=== PATIENT | male | born 1950 | race African-American/Black ===

== ENCOUNTER 2017-03-12 14:07 | Inpatient (IN) | payer MEDICARE, SELFPAY ==
[2017-03-12] VITALS (9 sets, daily range): BP systolic 85–102; BP diastolic 46–72; PULSE 51–66; RESP 14–97; TEMP 35.3; O2SAT 91–97; BMI 23.8; BMI 23.9
--- NOTE | 2017-03-12 14:31 | RAD_ITS ---
STUDY: X-RAY CHEST REASON FOR EXAM: Male, 66 years old. Possible aspiration. TECHNIQUE: Single AP portable view of the chest. COMPARISON: Comparison is made with prior study dated October 23, 2012. FINDINGS: Since prior study, there has been progression of the right perihilar infiltration. New left lower lobe infiltrate. Follow-up is recommended. There is blunting of the left costophrenic angle. Normal size heart. Normal mediastinum and nohemi. Normal visualized pulmonary arteries. There is atherosclerotic calcification of the aortic arch with tortuosity. Normal visualized thoracic spine. There is degenerative osteoarthritis of the bilateral shoulders. There is no demonstrated abnormality of the visualized soft tissue structures of the upper abdomen. RAD/Chest 1 View (Portable) IMPRESSION: Progressive right upper lobe and right perihilar infiltration and left lower lobe infiltrate. Follow-up is recommended. Electronically Signed: Braydon Serra MD at 15:17 EST Tel [phone], Service support ,
--- NOTE | 2017-03-12 14:42 | RAD_ITS ---
STUDY: X-RAY - RIGHT ELBOW REASON FOR EXAM: Male, 66 years old. Swelling following a fall. TECHNIQUE: 4 view(s) of the elbow. COMPARISON: None. FINDINGS: Irregularity seen along the olecranon of the proximal ulna. Soft tissue calcifications are seen adjacent to this region. Overlying soft tissue swelling. This may represent an area of her chronic osteomyelitis. Clinical correlation is recommended. Normal radiocapitellar and ulnotrochlear articulations. Soft tissue swelling. RAD/Elbow min 3 Views IMPRESSION: Irregularity of the olecranon of the proximal ulna with soft tissue calcifications and irregularity of the cortex. This may represent a chronic osteomyelitis. Overlying soft tissue swelling. Clinical correlation is recommended. There is no evidence of joint effusion. No fracture is seen. Electronically Signed: Braydon Serra MD at 15:16 EST Tel [phone], Service support ,
--- NOTE | 2017-03-12 16:13 | CT_ITS ---
STUDY: CT BRAIN WITHOUT CONTRAST REASON FOR EXAM: Male, 66 years old. Fall RADIATION DOSAGE (If Supplied By Facility): CTDIvol = ( 44.99 ) mGy, DLP = ( 829.85 ) mGycm TECHNIQUE: Transaxial CT imaging of the brain was performed without administration of intravenous contrast material. Individualized dose optimization techniques were used for this CT. COMPARISON: February 17, 2014 FINDINGS: There is a comminuted nasal bone fracture associated with a comminuted anterior and mid nasal septal fracture. There is associated nasal soft tissue swelling associated with bilateral periorbital hematomas. There is a stable deformity of the right medial orbital wall. Opacification of the nasal cavities is present. There are air-fluid levels within the maxillary and sphenoid sinuses. The globes appear intact. There is fluid noted with in the nasopharynx. There is mild cerebral atrophy with widening of the extra-axial spaces and ventricular dilatation. Normal white matter tracts of the cerebral hemispheres. Normal basal ganglia and thalami. Normal brainstem. Normal cerebellum. There is no intracranial hemorrhage. There are no findings of an acute ischemic infarction. CT/Brain/Head without Contrast IMPRESSION: Comminuted nasal bone and nasal septal fractures associated with opacification of the nasal cavities and nasal soft tissue swelling. Small air-fluid levels within the maxillary and sphenoid sinuses may be secondary to history of sinusitis however this may be related to recent trauma, consider dedicated maxillofacial CT for further evaluation. Bilateral periorbital hematomas. Electronically Signed: Kayla Rodriguez MD at 17:22 EST Tel , Service support ,
[2017-03-12 16:27] LABS: Absolute Lymphocyte Count 1.09 X10^3/ul (0.83-4.51); Absolute Neutrophil Count 3.9 X10^3/uL (2.0-7.7); Differential Indicated SCAN CRITERIA MET; Eosinophil# 0.03 X10^3/uL; Eosinophils% 0.5 % (0-5); Hematocrit 30.8 % (40-54); Hemoglobin 9.9 g/dl (13.0-16.5); Lymphocyte # 1.09 X10^3/ul (4.0); Lymphocyte % 19.3 % (19-41); Mean Corp Hgb Conc 32.1 g/gl (32-36); Mean Corpuscular Hgb 30.6 pg (27.0-32.0); Mean Corpuscular Volume 95.1 fL (80-94); Monocyte# 0.58 X10^3/uL; Monocyte% 10.2 % (0-10); Neutrophil # 3.94 X10^3/uL (2.7-7.7); Neutrophil % 69.6 % (47-70); POSITIVE COUNT NO; POSITIVE DIFFERENTIAL NO; POSITIVE MORPHOLOGY YES; Platelet Count 85 K/mm3 (150-450); RBC Distribution Width CV 15.8 % (11.6-14.6); RBC Distribution Width SD 54.9 fl (35.1-43.9); Red Blood Count 3.24 M/mm3 (4.6-6.2); White Blood Count 5.7 K/mm3 (4.4-11.0)
[2017-03-12 16:37] LABS: BUN 44 mg/dL (7-18); Creatinine, Serum 1.88 mg/dL (0.70-1.30); EST Glomerular Filtration Rate 38 mL/min (>60); Estimated Creatinine Clearance 36.89 ml/min; Glucose 91 mg/dL (74-106)
[2017-03-12 16:38] LABS: Anion Gap 7 (5-15); BUN/Creat Ratio 23.4 RATIO (10-20); Calcium,Total 8.8 mg/dL (8.5-10.1); Chloride 106 mmol/L (98-107); Est Glom Filt Rate - Afr Amer 46 mL/min (>60); Potassium 5.2 mmol/L (3.5-5.1); Sodium Level 141 mmol/L (136-145)
[2017-03-12 16:50] LABS: Anisocytosis RARE; Hypochromasia RARE; Macrocytosis RARE; Platelet Estimate MOD DEC (ADEQ); Platelet Morphology LARGE; Target Cells 1+
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
[2017-03-12] MEDS: 0.9% Normal Saline 1,000 ML 999 ML IV (17:53)
--- NOTE | 2017-03-12 19:04 | CT_ITS ---
STUDY: CT FACIAL BONES WITHOUT CONTRAST REASON FOR EXAM: Male, 66 years old. Nasal fracture RADIATION DOSAGE (If Supplied By Facility): CTDIvol = ( 29.38 ) mGy, DLP = ( 642.95 ) mGycm TECHNIQUE: The patient was scanned in a multi detector CT scanner. Sagittal and coronal images were reconstructed. Individualized dose optimization techniques were used for this CT. COMPARISON: None. FINDINGS: Diffuse soft tissue swelling overlying the nose. Normal orbital joyner and orbital contents. Anterior nasal spine appears intact. Impacted nasal bone fracture. Fracture of the nasal septum. Degenerative findings of the cervical spine. There is mild maxillary sinus disease. CT/Sinus/Facial Bone IMPRESSION: Diffuse soft tissue swelling overlying the nose. Impacted nasal bone fracture. Fracture of the nasal septum. Electronically Signed: Blaze Rodriguez MD at 20:33 EST , Service support ,
--- NOTE | 2017-03-12 19:41 | ED.RN ---
PLACED ON VENTURI MASK PER DR MENA AND VANESSA REQUEST
--- NOTE | 2017-03-12 20:18 | ED.RN ---
REPORT CALLED TO [facility]
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
[2017-03-13] VITALS (14 sets, daily range): BP systolic 96–113; BP diastolic 50–64; PULSE 74–99; RESP 16–20; TEMP 35.7–37.3; O2SAT 95–98
[2017-03-13] MEDS: 0.9% Normal Saline 1,000 ML 125 ML IV ×3 (00:47→16:50)
[2017-03-13 05:26] LABS: Color, Urine Yellow (Yellow); Glucose, Dipstick Normal (Normal); Ketone-Dipstick 5 mg/dl (Negative); Leukocyte Esterase-Dipstick 25 /ul (Negative); Nitrite-Dipstick Negative (Negative); Occult Blood-Urine Negative /ul (Negative); Protein-Dipstick Negative (Negative); Urine Bilirubin Dipstick Negative (Negative); Urine Clarity Clear (Clear); Urine Urobilinogen Normal (Normal)
[2017-03-13] MEDS: Piperacil/Tazobactam 3.375 GM/50 ML ML IV ×3 (05:44→21:05)
[2017-03-13 06:17] LABS: Absolute Lymphocyte Count 0.67 X10^3/ul (0.83-4.51); Basophil# 0.01 X10^3/uL; Basophil% 0.1 % (0-1); Eosinophil# 0.03 X10^3/uL; Eosinophils% 0.4 % (0-5); Hematocrit 27.6 % (40-54); Lymphocyte # 0.67 X10^3/ul (4.0); Lymphocyte % 7.9 % (19-41); Mean Corp Hgb Conc 32.6 g/gl (32-36); Mean Corpuscular Hgb 30.7 pg (27.0-32.0); Mean Corpuscular Volume 94.2 fL (80-94); Monocyte# 0.75 X10^3/uL; Monocyte% 8.9 % (0-10); Neutrophil # 6.98 X10^3/uL (2.7-7.7); Neutrophil % 82.5 % (47-70); Platelet Count 79 K/mm3 (150-450); RBC Distribution Width CV 15.9 % (11.6-14.6); RBC Distribution Width SD 54.8 fl (35.1-43.9); Red Blood Count 2.93 M/mm3 (4.6-6.2); White Blood Count 8.5 K/mm3 (4.4-11.0)
[2017-03-13 06:18] LABS: Differential Indicated SCAN CRITERIA MET; POSITIVE COUNT NO; POSITIVE DIFFERENTIAL NO; POSITIVE MORPHOLOGY YES
[2017-03-13 06:47] LABS: Platelet Estimate MOD DEC (ADEQ)
--- NOTE | 2017-03-13 10:04 | CASEMGMT ---
SW referral received d/t pt's admission from [facility]. Reviewed record and attempted to meet with pt, who was asleep with four visitors at the bedside. Visitors identified themselves as staff from [facility] and stated their understanding that pt would be returning there upon discharge from [facility]. Call placed to pt's guardian, Janessa Ortiz, at [phone] as listed on chart. Message left; awaiting return call.
[2017-03-13 11:44] LABS: Anion Gap 6 (5-15); BUN 44 mg/dL (7-18); BUN/Creat Ratio 27.7 RATIO (10-20); Calcium,Total 8.2 mg/dL (8.5-10.1); Chloride 110 mmol/L (98-107); Creatinine, Serum 1.59 mg/dL (0.70-1.30); EST Glomerular Filtration Rate 46 mL/min (>60); Est Glom Filt Rate - Afr Amer 56 mL/min (>60); Estimated Creatinine Clearance 43.62 ml/min; Glucose 75 mg/dL (74-106); Potassium 4.7 mmol/L (3.5-5.1); Sodium Level 143 mmol/L (136-145)
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
[2017-03-13] MEDS: Ipratropium/Albuterol Sulfate 3 ML AMPUL.NEB INHALATION (18:39)
[2017-03-14] VITALS (15 sets, daily range): BP systolic 104–157; BP diastolic 60–88; PULSE 58–99; RESP 18–20; TEMP 36.9–37.4; O2SAT 94–96
[2017-03-14] MEDS: 0.9% Normal Saline 1,000 ML 125 ML IV ×3 (00:54→18:08)
[2017-03-14 05:38] LABS: Anion Gap 7 (5-15); BUN 35 mg/dL (7-18); Calcium,Total 7.8 mg/dL (8.5-10.1); Chloride 112 mmol/L (98-107); Creatinine, Serum 1.59 mg/dL (0.70-1.30); EST Glomerular Filtration Rate 46 mL/min (>60); Est Glom Filt Rate - Afr Amer 56 mL/min (>60); Estimated Creatinine Clearance 43.62 ml/min; Glucose 74 mg/dL (74-106); Magnesium 1.8 mg/dL (1.6-2.6); Sodium Level 144 mmol/L (136-145)
[2017-03-14] MEDS: Piperacil/Tazobactam 3.375 GM/50 ML ML IV ×3 (05:53→22:18)
--- NOTE | 2017-03-14 09:57 | PN_ITS ---
Patient Problems: Active and Suspected Problems Closed head injury (Acute) Subjective: Patient seen nasal packing discontinued much more awake he apparently did fail his speech and swallow eval again this morning Objective: GENERAL: In no apparent distress HEENT: Nasal Packing removed NECK; supple, normal thyroid, CHEST: Diminished to auscultation bilaterally, HEART: Regular S1 S2, no audible murmurs ABDOMEN: soft, non-tender, normoactive bowel sounds, RECTAL: deferred EXTREMITIES: No edema, no clubbing, no cyanosis. 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 SKIN: No rash Vitals/I&O's: Vital Signs Temp Pulse Resp BP Pulse Ox 98.4 F 92 20 H 107/60 94 03/14/17 04:30 03/14/17 04:30 03/14/17 04:30 03/14/17 04:30 03/14/17 07:24 Oxygen Flow Rate 8 Oxygen Delivery Method Room Air Weight: 71.5 kg Intake and Output for Last 24 Hours 03/12/17 03/13/17 03/14/17 23:59 23:59 23:59 Intake Total 2873.8 / 2873.8 900.3 / 900.3 Output Total 1550 / 1550 400 / 400 Balance 1323.8 / 1323.8 500.3 / 500.3 Microbiology Past 72 Hours 03/13/17 03:30 Urine, Clean Catch Streptococcus pneumoniae Antigen (M - Final Laboratory Results 03/13/17 11:20: Sodium 143, Potassium 4.7, Chloride 110 H, Carbon Dioxide 27.0, Anion Gap 6, BUN 44 H, Creatinine 1.59 H, Estim Creat Clear Calc 43.62, Est GFR (MDRD) Af Amer 56 L, Est GFR (MDRD) Non-Af 46 L, BUN/Creatinine Ratio 27.7 H, Glucose 75, Calcium 8.2 L, Magnesium 2.0 03/14/17 04:46: Sodium 144, Potassium 4.0, Chloride 112 H, Carbon Dioxide 25.0, Anion Gap 7, BUN 35 H, Creatinine 1.59 H, Estim Creat Clear Calc 43.62, Est GFR (MDRD) Af Amer 56 L, Est GFR (MDRD) Non-Af 46 L, BUN/Creatinine Ratio 22.0 H, Glucose 74, Calcium 7.8 L, Magnesium 1.8 Current Medications Albuterol/Ipratropium (Duoneb) 3 ml INHALATION Q4H.RT [facility] Last Admin: 03/14/17 07:24 Dose: Not Given Sodium Chloride () 1,000 mls @ 125 mls/hr IV .Q8H [facility] Last Admin: 03/14/17 09:26 Dose: 125 mls/hr Piperacillin Sod/Tazobactam Sod (Zosyn) 3.375 gm in 50 mls @ 12.5 mls/hr IV Q8 [facility] Last Admin: 03/14/17 05:53 Dose: 12.5 mls/hr Oxymetazoline HCl (Afrin (Bkc)) 2 spray NASAL TID [facility] Last Admin: 03/14/17 05:53 Dose: 2 spray Sodium Chloride () 5 - 30 ml IV UD PRN PRN Reason: SALINE FLUSH Assessment/Plan Active and Suspected Problems Closed head injury (Acute) Patient is a 66 year old gentleman [facility] the [facility] brought in [facility] a [facility]. Imaging studies obtained on admission demonstrated Diffuse soft tissue swelling overlying the nose,Impacted nasal bone fracture and Fracture of the nasal septum. CXR also demonstrated suspected aspiration pneumonia started on antibiotics per protocol admitted to monitored bed for further management 1. Traumatic fall with facial injuries Imaging studies obtained on admission demonstrated Diffuse soft tissue swelling overlying the nose,Impacted nasal bone fracture and Fracture of the nasal septum patient admitted to progressive care unit for symptomatic management with consultation placed to ENT surgeon 2. Suspected aspiration pneumonia imaging studies demonstrated Progressive right upper lobe and right perihilar infiltration and left lower lobe infiltrate patient is on Zosyn had speech and swallow evaluation on 03-28 recommendation was for patient to be kept n.p.o. at this point to his level of sensorium improves 3. Anemia secondary to acute blood loss anemia from patient epistaxis following his nasal bridge fracture 4. Hypothyroidism-patient is on levothyroxine home dose continued 5. Dementia 6. COPD aerosol treatment as needed 7. Hypertension-history patient not on any antihypertensive 8. DVT prophylaxis SCDs Code Visit Inpatient E&M: 28330 Subs Hosp L2
[2017-03-14] MEDS: Ipratropium/Albuterol Sulfate 3 ML AMPUL.NEB INHALATION ×2 (10:40→23:10)
[2017-03-14] MEDS: LORazepam 2 MG/ML Syringe IV ×2 (16:01→21:48)
[2017-03-14] MEDS: Haloperidol Lactate 5 MG/ML Vial 2 MG IV (23:45)
[2017-03-15] VITALS (23 sets, daily range): BP systolic 103–155; BP diastolic 60–110; PULSE 57–127; RESP 18–88; TEMP 37.2–37.7; O2SAT 92–99
[2017-03-15] MEDS: 0.9% Normal Saline 1,000 ML 125 ML IV ×2 (01:49→18:18)
[2017-03-15] MEDS: LORazepam 2 MG/ML Syringe IV ×2 (01:50→08:28)
[2017-03-15] MEDS: Piperacil/Tazobactam 3.375 GM/50 ML ML IV ×3 (05:07→22:21)
[2017-03-15 06:16] LABS: Anion Gap 8 (5-15); BUN 34 mg/dL (7-18); BUN/Creat Ratio 22.8 RATIO (10-20); Chloride 114 mmol/L (98-107); Creatinine, Serum 1.49 mg/dL (0.70-1.30); EST Glomerular Filtration Rate 50 mL/min (>60); Est Glom Filt Rate - Afr Amer 60 mL/min (>60); Estimated Creatinine Clearance 46.54 ml/min; Glucose 101 mg/dL (74-106); Potassium 4.3 mmol/L (3.5-5.1); Sodium Level 146 mmol/L (136-145)
[2017-03-15 06:22] LABS: Hematocrit 18.3 % (40-54); Mean Corp Hgb Conc 32.2 g/gl (32-36); Mean Corpuscular Hgb 31.1 pg (27.0-32.0); Mean Corpuscular Volume 96.3 fL (80-94); Mean Platelet Vol. 13.1 fl (6.2-12.0); Platelet Count 85 K/mm3 (150-450); RBC Distribution Width CV 16.5 % (11.6-14.6); White Blood Count 8.8 K/mm3 (4.4-11.0)
[2017-03-15] MEDS: Haloperidol Lactate 5 MG/ML Vial 2 MG IV ×3 (06:33→20:54)
--- NOTE | 2017-03-15 06:34 | NURSING ---
Zaid LANG from ED arrived and placed balloon packing/rhinorocket to right nares. Pre-medicated with haldol, pt tolerated well. Zaid warned of potential for blood to drain posteriorly and to watch for spitting blood.
[2017-03-15 06:39] LABS: Hemoglobin 5.9 g/dl (13.0-16.5)
[2017-03-15 06:40] LABS: Scan Indicated on CBC? Y/N YES- FLAGS NOTED
--- NOTE | 2017-03-15 06:43 | RAD_ITS ---
STUDY: X-RAY CHEST REASON FOR EXAM: Male, 66 years old. Possible aspiration. TECHNIQUE: Single AP portable view of the chest. COMPARISON: Chest x-ray on March 30, 2017. FINDINGS: EKG leads are in place There are increasing bilateral pulmonary infiltrates since the last examination. There is no demonstrated pleural abnormality. Normal size heart. Normal mediastinum and nohemi. Normal visualized pulmonary arteries. Normal visualized aortic arch and descending thoracic aorta. Normal visualized thoracic spine. There is degenerative osteoarthritis of the bilateral shoulders. There is no demonstrated abnormality of the visualized soft tissue structures of the upper abdomen. RAD/Chest 1 View (Portable) IMPRESSION: Increasing bilateral pulmonary infiltrates Electronically Signed: Esdras Crowe MD, FACR at 7:34 EST , Service support ,
[2017-03-15 06:46] LABS: Differential Comment SCANNED
--- NOTE | 2017-03-15 07:25 | PCM.PROGNOTE ---
Patient Problems: Active and Suspected Problems Closed head injury (Acute) Subjective: Chief complaint: Follow-up after admission for impacted nasal bone fracture/fracture of the nasal septum, bilateral periorbital hematomas, suspected aspiration pneumonia and acute blood loss anemia as well as acute kidney injury. Patient seen and examined. Overnight, he has been having significant epistaxis that was continuous. The patient is talking incoherently and I could not understand what he is saying. He seemed to be confused and is oriented and reportedly, this is his baseline. He denies any pain. His temperature is 99.3, blood pressure stable, pulse ox is 96% on room air. - Physical Exam General: Alert, Cooperative, Disoriented HEENT: PERRLA, - - Traumatic, bilateral periorbital ecchymosis, epistaxis. Oral: Moist Mucosa, No Gingival or Mucosal Lesions/ Ulcerations Neck: Supple, No JVD, Negative Carotid Bruits, Trachea Midline, Thyroid Normal Size and Texture Lungs: Clear to auscultation, No wheeze, No rales, Diminished, Rhonchi, - - Decreased breath sounds bilateral, bilateral rhonchi. Cardiovascular: Regular rate, Regular Rhythm, Normal S1, Normal S2, PMI Normal Abdomen: Bowel Sounds Present, Soft, Non Tender, Non-Distended, No Hepato-splenomegaly Extremities: No clubbing, No cyanosis, No edema Skin: No rashes, No breakdown Lymphatic: No Cervical, Supraclavicular, or Inguinal Adenopathy Neurological: Cranial nerves II-XII grossly intact, - - Moving all limbs. Psych/Mental Status: Anxious Vital Signs Temp Pulse Resp BP Pulse Ox 99.3 F H 94 18 131/60 H 96 03/15/17 05:59 03/15/17 05:59 03/15/17 05:59 03/15/17 05:59 03/15/17 05:59 Oxygen Flow Rate 8 Oxygen Delivery Method Room Air Weight: 157 lb 10.088 oz Intake and Output for Last 24 Hours 03/13/17 03/14/17 03/15/17 23:59 23:59 23:59 Intake Total 2873.8 / 2873.8 3160.3 / 3160.3 746 / 746 Output Total 1550 / 1550 1650 / 1650 450 / 450 Balance 1323.8 / 1323.8 1510.3 / 1510.3 296 / 296 Microbiology Past 72 Hours 03/13/17 03:30 Streptococcus pneumoniae Antigen (M - Final Urine, Clean Catch Laboratory Tests Past 24 Hrs 03/15/17 03/15/17 05:40 05:40 WBC 8.8 RBC 1.90 L Hgb 5.9 L* Hct 18.3 L MCV 96.3 H MCH 31.1 MCHC 32.2 RDW 16.5 H RDW Differential 57.0 H Plt Count 85 L MPV 13.1 H Differential Comment SCANNED Diff Path Review May foll Sodium 146 H Potassium 4.3 Chloride 114 H Carbon Dioxide 24.0 Anion Gap 8 BUN 34 H Creatinine 1.49 H Estim Creat Clear Calc 46.54 Est GFR (MDRD) Af Amer 60 Est GFR (MDRD) Non-Af 50 L BUN/Creatinine Ratio 22.8 H Glucose 101 Calcium 8.0 L Clinical Impression(s) from Imaging Studies Chest X-Ray 03/12/17 14:31 IMPRESSION: Progressive right upper lobe and right perihilar infiltration and left lower lobe infiltrate. Follow-up is recommended. Electronically Signed: Braydon Serra MD at 15:17 EST Tel [phone], Service support , Elbow X-Ray 03/12/17 14:42 IMPRESSION: Irregularity of the olecranon of the proximal ulna with soft tissue calcifications and irregularity of the cortex. This may represent a chronic osteomyelitis. Overlying soft tissue swelling. Clinical correlation is recommended. There is no evidence of joint effusion. No fracture is seen. Electronically Signed: Braydon Serra MD at 15:16 EST Tel [phone], Service support , Brain CT 03/12/17 16:13 IMPRESSION: Comminuted nasal bone and nasal septal fractures associated with opacification of the nasal cavities and nasal soft tissue swelling. Small air-fluid levels within the maxillary and sphenoid sinuses may be secondary to history of sinusitis however this may be related to recent trauma, consider dedicated maxillofacial CT for further evaluation. Bilateral periorbital hematomas. Electronically Signed: Kayla Rodriguez MD at 17:22 EST Tel , Service support , Facial/Sinus 03/12/17 19:04 IMPRESSION: Diffuse soft tissue swelling overlying the nose. Impacted nasal bone fracture. Fracture of the nasal septum. Electronically Signed: Blaze Rodriguez MD at 20:33 EST , Service support , Assessment/Plan Active and Suspected Problems Closed head injury (Acute) This is a 66 years old male patient admitted because of fall complicated by a closed head injury, impacted nasal bone fracture/fracture of the nasal septum, bilateral periorbital hematomas, suspected aspiration pneumonia, acute blood loss anemia as well as acute kidney injury. #1 fall/closed head injury/bilateral periorbital hematomas: CT scan brain done on admission reviewed. Revealed bilateral preoperative hematoma as well as fractures mentioned below. Recent is demented, not able to provide good history and he has incoherent speech. He is afebrile, blood pressure and heart rate are stable, pulse ox is 96% on room air. He has no focal deficit on physical examination. #2 impacted nasal bone fracture/fracture of the nasal septum/epistaxis: Status post packing of the right nostril. Patient has been having nasal bleeding from the right nostril. He is on Afrin, still actively bleeding. X-ray of the nasal bone as well as CT scan brain reviewed. ENT on the case. Hemoglobin came down to 5.9 g/dL this morning, plan to transfuse blood. ENT is managing. #3 suspected aspiration pneumonia: He is on IV Zosyn. He has been afebrile, pulse ox is 96% on room air. Repeat chest x-ray from today revealed increasing bilateral pulmonary infiltrate. Pneumococcal antigen is negative. Blood cultures pending. Plan: Continue same treatment, pulmonology consult. #4 acute on chronic blood loss anemia: Secondary to epistaxis. Today's hemoglobin came down to 5.9 g/dL. He does have chronic anemia with baseline hemoglobin around 9-11 g/dL. Plan: Transfuse 2 units of packed RBCs, will do pro time and INR as well as PTT. #5 acute kidney injury: Probably prerenal because of dehydration. Baseline creatinine is normal. Admission creatinine was 1.88, today's creatinine came down to 1.49, improved. #6 thrombocytopenia: Chronic, unclear etiology. He is actively bleeding, plan as above. #7 hypothyroidism: At this time, levothyroxine is continued because patient is failed swallow evaluation. #8 dementia: Supportive care. #9 COPD: Stable, is on DuoNeb every 4 hours. #10 DVT prophylaxis: SCDs. This note was generated with [email or web address] software. It may contain incorrect words, spelling, and punctuation that were not noted in checking the note before signing. Code Visit Inpatient E&M: 74243 Subs Hosp L3
--- NOTE | 2017-03-15 07:28 | PN_ITS ---
Patient Problems: Active and Suspected Problems Closed head injury (Acute) Subjective: Chief complaint: Follow-up after admission for impacted nasal bone fracture/ fracture of the nasal septum, bilateral periorbital hematomas, suspected aspiration pneumonia and acute blood loss anemia as well as acute kidney injury. Patient seen and examined. Overnight, he has been having significant epistaxis that was continuous. The patient is talking incoherently and I could not understand what he is saying. He seemed to be confused and is oriented and reportedly, this is his baseline. He denies any pain. His temperature is 99.3 , blood pressure stable, pulse ox is 96% on room air. - Physical Exam General: Alert, Cooperative, Disoriented HEENT: PERRLA, - - Traumatic, bilateral periorbital ecchymosis, epistaxis. Oral: Moist Mucosa, No Gingival or Mucosal Lesions/ Ulcerations Neck: Supple, No JVD, Negative Carotid Bruits, Trachea Midline, Thyroid Normal Size and Texture Lungs: Clear to auscultation, No wheeze, No rales, Diminished, Rhonchi, - - Decreased breath sounds bilateral, bilateral rhonchi. Cardiovascular: Regular rate, Regular Rhythm, Normal S1, Normal S2, PMI Normal Abdomen: Bowel Sounds Present, Soft, Non Tender, Non-Distended, No Hepato- splenomegaly Extremities: No clubbing, No cyanosis, No edema Skin: No rashes, No breakdown Lymphatic: No Cervical, Supraclavicular, or Inguinal Adenopathy Neurological: Cranial nerves II-XII grossly intact, - - Moving all limbs. Psych/Mental Status: Anxious Vital Signs Temp Pulse Resp BP Pulse Ox 99.3 F H 94 18 131/60 H 96 03/15/17 05:59 03/15/17 05:59 03/15/17 05:59 03/15/17 05:59 03/15/17 05:59 Oxygen Flow Rate 8 Oxygen Delivery Method Room Air Weight: 157 lb 10.088 oz Intake and Output for Last 24 Hours 03/13/17 03/14/17 03/15/17 23:59 23:59 23:59 Intake Total 2873.8 / 2873.8 3160.3 / 3160.3 746 / 746 Output Total 1550 / 1550 1650 / 1650 450 / 450 Balance 1323.8 / 1323.8 1510.3 / 1510.3 296 / 296 Microbiology Past 72 Hours 03/13/17 03:30 Streptococcus pneumoniae Antigen (M - Final Urine, Clean Catch Laboratory Tests Past 24 Hrs 03/15/17 03/15/17 05:40 05:40 WBC 8.8 RBC 1.90 L Hgb 5.9 L* Hct 18.3 L MCV 96.3 H MCH 31.1 MCHC 32.2 RDW 16.5 H RDW Differential 57.0 H Plt Count 85 L MPV 13.1 H Differential Comment SCANNED Diff Path Review May foll Sodium 146 H Potassium 4.3 Chloride 114 H Carbon Dioxide 24.0 Anion Gap 8 BUN 34 H Creatinine 1.49 H Estim Creat Clear Calc 46.54 Est GFR (MDRD) Af Amer 60 Est GFR (MDRD) Non-Af 50 L BUN/Creatinine Ratio 22.8 H Glucose 101 Calcium 8.0 L Clinical Impression(s) from Imaging Studies Chest X-Ray 03/12/17 14:31 IMPRESSION: Progressive right upper lobe and right perihilar infiltration and left lower lobe infiltrate. Follow-up is recommended. Electronically Signed: Braydon Serra MD at 15:17 EST Tel [phone], Service support , Elbow X-Ray 03/12/17 14:42 IMPRESSION: Irregularity of the olecranon of the proximal ulna with soft tissue calcifications and irregularity of the cortex. This may represent a chronic osteomyelitis. Overlying soft tissue swelling. Clinical correlation is recommended. There is no evidence of joint effusion. No fracture is seen. Electronically Signed: Braydon Serra MD at 15:16 EST Tel [phone], Service support , Brain CT 03/12/17 16:13 IMPRESSION: Comminuted nasal bone and nasal septal fractures associated with opacification of the nasal cavities and nasal soft tissue swelling. Small air-fluid levels within the maxillary and sphenoid sinuses may be secondary to history of sinusitis however this may be related to recent trauma, consider dedicated maxillofacial CT for further evaluation. Bilateral periorbital hematomas. Electronically Signed: Kayla Rodriguez MD at 17:22 EST Tel , Service support , Facial/Sinus 03/12/17 19:04 IMPRESSION: Diffuse soft tissue swelling overlying the nose. Impacted nasal bone fracture. Fracture of the nasal septum. Electronically Signed: Blaze Rodriguez MD at 20:33 EST , Service support , Assessment/Plan Active and Suspected Problems Closed head injury (Acute) This is a 66 years old male patient admitted because of fall complicated by a closed head injury, impacted nasal bone fracture/fracture of the nasal septum, bilateral periorbital hematomas, suspected aspiration pneumonia, acute blood loss anemia as well as acute kidney injury. #1 fall/closed head injury/bilateral periorbital hematomas: CT scan brain done on admission reviewed. Revealed bilateral preoperative hematoma as well as fractures mentioned below. Recent is demented, not able to provide good history and he has incoherent speech. He is afebrile, blood pressure and heart rate are stable, pulse ox is 96% on room air. He has no focal deficit on physical examination. #2 impacted nasal bone fracture/fracture of the nasal septum/epistaxis: Status post packing of the right nostril. Patient has been having nasal bleeding from the right nostril. He is on Afrin, still actively bleeding. X-ray of the nasal bone as well as CT scan brain reviewed. ENT on the case. Hemoglobin came down to 5.9 g/dL this morning, plan to transfuse blood. ENT is managing. #3 suspected aspiration pneumonia: He is on IV Zosyn. He has been afebrile, pulse ox is 96% on room air. Repeat chest x-ray from today revealed increasing bilateral pulmonary infiltrate. Pneumococcal antigen is negative. Blood cultures pending. Plan: Continue same treatment, pulmonology consult. #4 acute on chronic blood loss anemia: Secondary to epistaxis. Today's hemoglobin came down to 5.9 g/dL. He does have chronic anemia with baseline hemoglobin around 9-11 g/dL. Plan: Transfuse 2 units of packed RBCs, will do pro time and INR as well as PTT. #5 acute kidney injury: Probably prerenal because of dehydration. Baseline creatinine is normal. Admission creatinine was 1.88, today's creatinine came down to 1.49, improved. #6 thrombocytopenia: Chronic, unclear etiology. He is actively bleeding, plan as above. #7 hypothyroidism: At this time, levothyroxine is continued because patient is failed swallow evaluation. #8 dementia: Supportive care. #9 COPD: Stable, is on DuoNeb every 4 hours. #10 DVT prophylaxis: SCDs. This note was generated with [employer] software. It may contain incorrect words, spelling, and punctuation that were not noted in checking the note before signing. Code Visit Inpatient E&M: 34843 Subs Hosp L3
--- NOTE | 2017-03-15 07:37 | PN_ITS ---
Progress Note ENT progress note: Was notified by floor nurse at 6:15 this morning that Mr. Rubio had been vigorously blowing his nose and was having bleeding from the right nasal passage, a good part of the evening, and throughout the night. 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 In spite of the vasoconstrictive effect of Afrin this continued, possibly from the vigorous blowing and manipulation. I inquired whether they could get a nasal balloon or gauze pack available from the ER and/or whether one of the ER staff could pass a packing appliance into the right nasal chamber. By 7:10 AM, I presented and found that the ER staff member had placed a pack in the right nasal chamber and bleeding had stopped. The remainder of the history was such that no bleeding was noted from the left side, and no bleeding from the mouth, had occurred throughout this timeframe. All of this seems consistent with mucosal laceration internally, on the right side, from the nasal fracture. Simple packing and stopping of any manipulation should be satisfactory. Again given his DNR status an exam under anesthesia would be difficult to undertake readily. However if bleeding recurs after the soft pack has been placed, a rapid Rhino balloon device could be utilized for 3 days. Mucosal lacerations from fracture usually heal adequately without intervention. Cautery would not necessarily be indicated or advisable if this is a linear laceration of internal mucosa. He is due to receive blood product and hopefully in the absence of any further manipulation, and in the absence of any anticoagulants, this will go on to resolution. Mike Strickland MD
[2017-03-15 08:37] LABS: Partial Thromboplast Time 88.9 Seconds (24.1-36.2); Prothrombin Time (Protime)PT. 86.5 SECONDS (11.7-14.9)
[2017-03-15 08:47] LABS: International Normalized Ratio 11.8
--- NOTE | 2017-03-15 08:47 | PCM.PN.BLA ---
Progress Note ENT progress note update: The patient managed to get out of soft restraints and grabbed the nasal pack and removed it. Bleeding resumed. I presented at 8:40 AM and replaced a 7.5 cm anterior posterior rapid Rhino device uneventfully. This was inserted after a topical vasoconstrictive with some Xylocaine. Bleeding overall was minimal, prior to placement, but this should suffice to keep the area covered and the thrombin materials in the packing device should help with the healing. 2 cc of air were placed into the balloon cuff. Mike Strickland MD
[2017-03-15] MEDS: Phytonadione (Vit K) 10 MG/ML Ampul SC (09:12)
--- NOTE | 2017-03-15 10:09 | CASEMGMT ---
[facility] called [facility] and spoke with Zeina. Patient does not need a pre-cert to return. CELINA faxed them updates. Ebonie CANDELARIA MSW
[2017-03-15 12:04] LABS: AST(SGOT) 166 U/L (15-37); Alanine Aminotransfer ALT/SGPT 54 U/L (16-61); Albumin, Serum 2.5 g/dL (3.2-5.0); Alkaline Phosphatase 96 U/L (45-117); Bilirubin, Direct 0.22 mg/dL (0.00-0.30); Globulin 3.9 g/dL (2.2-4.2); Protein, Total 6.4 g/dL (6.4-8.2)
[2017-03-15 12:17] LABS: Fibrinogen 388 mg/dl (203-444)
--- NOTE | 2017-03-15 14:09 | PCM.CONS.GEN ---
Problem List (1) Nasal bone fractures Status: Acute Qualifiers: Encounter type: initial encounter Fracture type: closed Qualified Code(s): S02.2XXA - Fracture of nasal bones, initial encounter for closed fracture (2) Epistaxis Status: Acute (3) Chronic obstructive lung disease Status: Chronic Qualifiers: COPD type: unspecified COPD Qualified Code(s): J44.9 - Chronic obstructive pulmonary disease, unspecified (4) Dementia Status: Chronic Qualifiers: Dementia type: other frontotemporal dementia Dementia behavioral disturbance: with behavioral disturbance Qualified Code(s): G31.09 - Other frontotemporal dementia; F02.81 - Dementia in other diseases classified elsewhere with behavioral disturbance (5) Hypertension Status: Chronic Qualifiers: Hypertension type: essential hypertension Qualified Code(s): I10 - Essential (primary) hypertension (6) Hyperparathyroidism Status: Chronic (7) Paranoid schizophrenia Status: Chronic (8) Closed head injury Status: Acute Reason for Consult Date of Consultation: 03/15/17 Reason for Consultation: Worsening chest x-ray History of Present Illness: The patient is a 66 year old M, with past medical history listed below, who presented to [facility] on March 12, 2017 secondary to a closed head injury. Patient reportedly was attempting to swing and another resident and had fallen and hit his face. Imaging in the emergency room showed diffuse soft tissue swelling overlying the nose with an impacted nasal bone fracture and fracture of the nasal septum. Patient was started on empiric antibiotics and admitted to the floor. ENT was consulted and patient was initially treated conservatively. Patient then developed epistaxis. A Rhino Rocket was placed. This was removed by the patient earlier today. Patient has remained on room air, but chest x-ray showed progression of a right middle lobe/lower lobe infiltrate. Patient is very difficult to understand and is unable to provide any usable history at this time. Patient does have a history of frontotemporal dementia. After epistaxis, coagulation studies were obtained for the first time showing significantly elevated INR and decrease in H&H. Patient was given FFP and blood products. Patient does have a bedside sitter. Patient is not on any anticoagulants per outpatient documentation. Patient does have albuterol as needed, but no documentation of PFTs or previous pulmonary referral. Past Medical History Past Medical History (Chronic Problems): Chronic Problems Chronic obstructive lung disease (Chronic) Dementia (Chronic) Hypertension (Chronic) Hyperparathyroidism (Chronic) Paranoid schizophrenia (Chronic) Allergies No Known Allergies Allergy (Verified 02/19/17 13:25) Home Medications: Ambulatory Orders Medication Instructions Recorded Aspirin [Aspirin, Baby] 81 mg PO DAILY@0800 12/22/12 Ergocalciferol [Vitamin D] 50,000 unit PO MOTH 12/22/12 Levothyroxine Sodium [Synthroid] 200 mcg PO DAILY 12/22/12 Magnesium Oxide [Mag-Ox 400] 400 mg PO DAILY 12/22/12 Multivitamins,Therapeutic 1 tablet PO DAILY 12/22/12 [Multivitamin] Senna/Docusate Sodium [Senokot-S] 1 tablet PO QHS 12/22/12 Albuterol Aerosols [Ventolin 2.5 mg INHALATION Q4H PRN PRN 02/19/17 Aerosols] Aripiprazole [Aripiprazole] 10 mg PO BID 02/19/17 Chlorpromazine HCl [Chlorpromazine 25 mg PO BID 02/19/17 HCl] Clonazepam [Klonopin] 2 mg PO 4X/DAY 02/19/17 Divalproex Sodium [Depakote 125 mg PO BID 02/19/17 Sprinkle] Lorazepam [Ativan] 1 mg IM Q6H PRN 02/19/17 Lorazepam [Ativan] 2 mg PO Q4H PRN 02/19/17 Metoprolol Succinate 50 mg PO DAILY 02/19/17 Olanzapine [Olanzapine] 5 mg PO Q6H PRN PRN 02/19/17 Quetiapine Fumarate [Seroquel] 200 mg PO TID 02/19/17 Benztropine Mesylate 0.5 mg PO DAILY 03/12/17 Benztropine Mesylate [Benztropine 1 mg PO DAILY 03/12/17 Mesylate] Guaifenesin 400 mg PO Q6H PRN PRN 03/12/17 Loperamide [Imodium] 2 mg PO TID PRN 03/12/17 Surgical History: noncontributory Psychiatric History: Schizophrenia Smoking Status: Current every day smoker Review of Systems Unable to obtain accurate/complete ROS d/t: Current mental status Patient Problems: Active and Suspected Problems Closed head injury (Acute) Nasal bone fractures (Acute) Epistaxis (Acute) Objective: Chest x-ray was personally reviewed and does show an evolving infiltrate in the right middle/right lower lobe area - Physical Exam General: Alert, No apparent distress, Confused, Disoriented, - - In restraints. HEENT: - - Bilateral black eyes. Right nares with rocket in place. Tracking appropriately. Very dysarthric speech. Oral: Moist Mucosa, No Gingival or Mucosal Lesions/ Ulcerations, - - Edentulous Neck: Supple, No JVD, No Nodes, Trachea Midline Lungs: No wheeze, No rales, Diminished, Rhonchi - Right greater than left, - - Symmetric expansion. No dullness to percussion. Cardiovascular: Regular rate, Regular Rhythm, Normal S1, Normal S2, No murmurs, No rub noted, No Gallop Abdomen: Bowel Sounds Present, Soft, Non Tender, Non-Distended Extremities: No clubbing, No cyanosis, No edema, - - Upper extremities restrained Skin: - - Significant ecchymotic areas of the face. No facial palsy was appreciated. Musculoskeletal: No Tenderness to Palpation of Joints or Extremities Lymphatic: No Cervical, Supraclavicular, or Inguinal Adenopathy Neurological: Neuro grossly intact, Motor Exam 5/5 strength throughout, Sensory exam intact to light touch and pain Psych/Mental Status: Anxious, Impulsive, Restless Vital Signs Temp Pulse Resp BP Pulse Ox 37.3 C 99 18 108/70 97 03/15/17 14:00 03/15/17 14:00 03/15/17 14:00 03/15/17 14:00 03/15/17 14:00 Oxygen Flow Rate 8 Oxygen Delivery Method Room Air Weight: 71.5 kg Intake and Output for Last 24 Hours 03/13/17 03/14/17 03/15/17 23:59 23:59 23:59 Intake Total 2873.8 / 2873.8 3160.3 / 3160.3 1076 / 1076 Output Total 1550 / 1550 1650 / 1650 1100 / 1100 Balance 1323.8 / 1323.8 1510.3 / 1510.3 -24 / -24 Microbiology Past 72 Hours 03/13/17 03:30 Streptococcus pneumoniae Antigen (M - Final Urine, Clean Catch Laboratory Tests Past 24 Hrs 03/15/17 03/15/17 03/15/17 05:40 05:40 05:40 WBC 8.8 RBC 1.90 L Hgb 5.9 L* Hct 18.3 L MCV 96.3 H MCH 31.1 MCHC 32.2 RDW 16.5 H RDW Differential 57.0 H Plt Count 85 L MPV 13.1 H Differential Comment SCANNED Diff Path Review May foll PT INR APTT Fibrinogen Sodium 146 H Potassium 4.3 Chloride 114 H Carbon Dioxide 24.0 Anion Gap 8 BUN 34 H Creatinine 1.49 H Estim Creat Clear Calc 46.54 Est GFR (MDRD) Af Amer 60 Est GFR (MDRD) Non-Af 50 L BUN/Creatinine Ratio 22.8 H Glucose 101 Calcium 8.0 L Total Bilirubin 0.60 Direct Bilirubin 0.22 AST 166 H ALT 54 Alkaline Phosphatase 96 Total Protein 6.4 Albumin 2.5 L Globulin 3.9 Blood Type Antibody Screen Crossmatch 03/15/17 03/15/17 03/15/17 07:20 07:20 07:20 WBC RBC Hgb Hct MCV MCH MCHC RDW RDW Differential Plt Count MPV Differential Comment Diff Path Review PT 86.5 H INR 11.8 H* APTT 88.9 H Fibrinogen 388 Sodium Potassium Chloride Carbon Dioxide Anion Gap BUN Creatinine Estim Creat Clear Calc Est GFR (MDRD) Af Amer Est GFR (MDRD) Non-Af BUN/Creatinine Ratio Glucose Calcium Total Bilirubin Direct Bilirubin AST ALT Alkaline Phosphatase Total Protein Albumin Globulin Blood Type O POSITIVE Antibody Screen NEGATIVE Crossmatch See Detail Clinical Impression(s) from Imaging Studies Chest X-Ray 03/12/17 14:31 IMPRESSION: Progressive right upper lobe and right perihilar infiltration and left lower lobe infiltrate. Follow-up is recommended. Electronically Signed: Braydon Serra MD at 15:17 EST Tel [phone], Service support , Elbow X-Ray 03/12/17 14:42 IMPRESSION: Irregularity of the olecranon of the proximal ulna with soft tissue calcifications and irregularity of the cortex. This may represent a chronic osteomyelitis. Overlying soft tissue swelling. Clinical correlation is recommended. There is no evidence of joint effusion. No fracture is seen. Electronically Signed: Braydon Serra MD at 15:16 EST Tel [phone], Service support , Brain CT 03/12/17 16:13 IMPRESSION: Comminuted nasal bone and nasal septal fractures associated with opacification of the nasal cavities and nasal soft tissue swelling. Small air-fluid levels within the maxillary and sphenoid sinuses may be secondary to history of sinusitis however this may be related to recent trauma, consider dedicated maxillofacial CT for further evaluation. Bilateral periorbital hematomas. Electronically Signed: Kayla Rodriguez MD at 17:22 EST Tel , Service support , Facial/Sinus 03/12/17 19:04 IMPRESSION: Diffuse soft tissue swelling overlying the nose. Impacted nasal bone fracture. Fracture of the nasal septum. Electronically Signed: Blaze Rodriguez MD at 20:33 EST , Service support , Chest X-Ray 03/15/17 06:43 IMPRESSION: Increasing bilateral pulmonary infiltrates Electronically Signed: Esdras Crowe MD, FACR at 7:34 EST , Service support , Assessment/Plan Active and Suspected Problems Closed head injury (Acute) Nasal bone fractures (Acute) Epistaxis (Acute) RECOMMENDATIONS: 1. Obtain CMP and fibrinogen 2. Repeat INR following FFP 3. Consider increasing Haldol 4. Likely okay to de-escalate antibiotics from Zosyn 5. No transfer to intensive care unit at this time IMPRESSIONS: 1. Acute respiratory insufficiency secondary to epistaxis secondary to closed head injury/nasal bone fracture/reported COPD Patient does have increasing infiltrates on chest x-ray, but appears to be tolerating these well. Patient continues to be on room air. Use of bronchodilators is likely acceptable. Clinical suspicion that once INR is normalized, aspiration of blood will improve. Recommend repeat INR following FFP. Clinical suspicion for aspiration of blood leading to increased infiltrates. This would not require increased antibiotic spectrum. Patient likely could be de-escalated from Zosyn therapy, but defer to primary team. Would not recommend steroids at this time. Very much doubt the patient would be able to tolerate any pulmonary function test for quantification of lung function. Recommend treating subjectively for now. 2. Significant coagulopathy/thrombocytopenia/acute blood loss anemia Unclear etiology. Liver function tests are within normal limits except for a depressed albumin at 2.5. INR is elevated. This could be consistent with cirrhosis. Normal fibrinogen makes consumptive coagulopathy unlikely. Patient is receiving blood products at this time. 3. Acute kidney injury Clinical suspicion for dehydration with prerenal etiology secondary to decreased p.o. intake. Continue slow rehydration and volume resuscitation with blood products. Creatinine is improving. 4. Hypothyroidism/dementia/debility/paranoid schizophrenia/frontotemporal Dementia Complicates care, management, recovery and prognosis. Code Visit Inpatient E&M: 65637 Init Hosp L3
--- NOTE | 2017-03-15 14:24 | CON.PCM_ITS ---
Problem List (1) Nasal bone fractures Status: Acute Qualifiers: Encounter type: initial encounter Fracture type: closed Qualified Code(s) : S02.2XXA - Fracture of nasal bones, initial encounter for closed fracture (2) Epistaxis Status: Acute (3) Chronic obstructive lung disease Status: Chronic Qualifiers: COPD type: unspecified COPD Qualified Code(s): J44.9 - Chronic obstructive pulmonary disease, unspecified (4) Dementia Status: Chronic Qualifiers: Dementia type: other frontotemporal dementia Dementia behavioral disturbance: with behavioral disturbance Qualified Code(s): G31.09 - Other frontotemporal dementia; F02.81 - Dementia in other diseases classified elsewhere with behavioral disturbance (5) Hypertension Status: Chronic Qualifiers: Hypertension type: essential hypertension Qualified Code(s): I10 - Essential (primary) hypertension (6) Hyperparathyroidism Status: Chronic (7) Paranoid schizophrenia Status: Chronic (8) Closed head injury Status: Acute Reason for Consult Date of Consultation: 03/15/17 Reason for Consultation: Worsening chest x-ray History of Present Illness: The patient is a 66 year old M, with past medical history listed below, who presented to [facility] on March 12, 2017 secondary to a closed head injury. Patient reportedly was attempting to swing and another resident and had fallen and hit his face. Imaging in the emergency room showed diffuse soft tissue swelling overlying the nose with an impacted nasal bone fracture and fracture of the nasal septum. Patient was started on empiric antibiotics and admitted to the floor. ENT was consulted and patient was initially treated conservatively. Patient then developed epistaxis. A Rhino Rocket was placed. This was removed by the patient earlier today. Patient has remained on room air, but chest x- ray showed progression of a right middle lobe/lower lobe infiltrate. Patient is very difficult to understand and is unable to provide any usable history at this time. Patient does have a history of frontotemporal dementia. After epistaxis, coagulation studies were obtained for the first time showing significantly elevated INR and decrease in H&H. Patient was given FFP and blood products. Patient does have a bedside sitter. Patient is not on any anticoagulants per outpatient documentation. Patient does have albuterol as needed, but no documentation of PFTs or previous pulmonary referral. Past Medical History Past Medical History (Chronic Problems): Chronic Problems Chronic obstructive lung disease (Chronic) Dementia (Chronic) Hypertension (Chronic) Hyperparathyroidism (Chronic) Paranoid schizophrenia (Chronic) Allergies No Known Allergies Allergy (Verified 02/19/17 13:25) Home Medications: Ambulatory Orders Medication Instructions Recorded Aspirin [Aspirin, Baby] 81 mg PO DAILY@0800 12/22/12 Ergocalciferol [Vitamin D] 50,000 unit PO MOTH 12/22/12 Levothyroxine Sodium [Synthroid] 200 mcg PO DAILY 12/22/12 Magnesium Oxide [Mag-Ox 400] 400 mg PO DAILY 12/22/12 Multivitamins,Therapeutic 1 tablet PO DAILY 12/22/12 [Multivitamin] Senna/Docusate Sodium [Senokot-S] 1 tablet PO QHS 12/22/12 Albuterol Aerosols [Ventolin 2.5 mg INHALATION Q4H PRN PRN 02/19/17 Aerosols] Aripiprazole [Aripiprazole] 10 mg PO BID 02/19/17 Chlorpromazine HCl [Chlorpromazine 25 mg PO BID 02/19/17 HCl] Clonazepam [Klonopin] 2 mg PO 4X/DAY 02/19/17 Divalproex Sodium [Depakote 125 mg PO BID 02/19/17 Sprinkle] Lorazepam [Ativan] 1 mg IM Q6H PRN 02/19/17 Lorazepam [Ativan] 2 mg PO Q4H PRN 02/19/17 Metoprolol Succinate 50 mg PO DAILY 02/19/17 Olanzapine [Olanzapine] 5 mg PO Q6H PRN PRN 02/19/17 Quetiapine Fumarate [Seroquel] 200 mg PO TID 02/19/17 Benztropine Mesylate 0.5 mg PO DAILY 03/12/17 Benztropine Mesylate [Benztropine 1 mg PO DAILY 03/12/17 Mesylate] Guaifenesin 400 mg PO Q6H PRN PRN 03/12/17 Loperamide [Imodium] 2 mg PO TID PRN 03/12/17 Surgical History: noncontributory Psychiatric History: Schizophrenia Smoking Status: Current every day smoker Review of Systems Unable to obtain accurate/complete ROS d/t: Current mental status Patient Problems: Active and Suspected Problems Closed head injury (Acute) Nasal bone fractures (Acute) Epistaxis (Acute) Objective: Chest x-ray was personally reviewed and does show an evolving infiltrate in the right middle/right lower lobe area - Physical Exam General: Alert, No apparent distress, Confused, Disoriented, - - In restraints. HEENT: - - Bilateral black eyes. Right nares with rocket in place. Tracking appropriately. Very dysarthric speech. Oral: Moist Mucosa, No Gingival or Mucosal Lesions/ Ulcerations, - - Edentulous Neck: Supple, No JVD, No Nodes, Trachea Midline Lungs: No wheeze, No rales, Diminished, Rhonchi - Right greater than left, - - Symmetric expansion. No dullness to percussion. Cardiovascular: Regular rate, Regular Rhythm, Normal S1, Normal S2, No murmurs, No rub noted, No Gallop Abdomen: Bowel Sounds Present, Soft, Non Tender, Non-Distended Extremities: No clubbing, No cyanosis, No edema, - - Upper extremities restrained Skin: - - Significant ecchymotic areas of the face. No facial palsy was appreciated. Musculoskeletal: No Tenderness to Palpation of Joints or Extremities Lymphatic: No Cervical, Supraclavicular, or Inguinal Adenopathy Neurological: Neuro grossly intact, Motor Exam 5/5 strength throughout, Sensory exam intact to light touch and pain Psych/Mental Status: Anxious, Impulsive, Restless Vital Signs Temp Pulse Resp BP Pulse Ox 37.3 C 99 18 108/70 97 03/15/17 14:00 03/15/17 14:00 03/15/17 14:00 03/15/17 14:00 03/15/17 14:00 Oxygen Flow Rate 8 Oxygen Delivery Method Room Air Weight: 71.5 kg Intake and Output for Last 24 Hours 03/13/17 03/14/17 03/15/17 23:59 23:59 23:59 Intake Total 2873.8 / 2873.8 3160.3 / 3160.3 1076 / 1076 Output Total 1550 / 1550 1650 / 1650 1100 / 1100 Balance 1323.8 / 1323.8 1510.3 / 1510.3 -24 / -24 Microbiology Past 72 Hours 03/13/17 03:30 Streptococcus pneumoniae Antigen (M - Final Urine, Clean Catch Laboratory Tests Past 24 Hrs 03/15/17 03/15/17 03/15/17 05:40 05:40 05:40 WBC 8.8 RBC 1.90 L Hgb 5.9 L* Hct 18.3 L MCV 96.3 H MCH 31.1 MCHC 32.2 RDW 16.5 H RDW Differential 57.0 H Plt Count 85 L MPV 13.1 H Differential Comment SCANNED Diff Path Review May foll PT INR APTT Fibrinogen Sodium 146 H Potassium 4.3 Chloride 114 H Carbon Dioxide 24.0 Anion Gap 8 BUN 34 H Creatinine 1.49 H Estim Creat Clear Calc 46.54 Est GFR (MDRD) Af Amer 60 Est GFR (MDRD) Non-Af 50 L BUN/Creatinine Ratio 22.8 H Glucose 101 Calcium 8.0 L Total Bilirubin 0.60 Direct Bilirubin 0.22 AST 166 H ALT 54 Alkaline Phosphatase 96 Total Protein 6.4 Albumin 2.5 L Globulin 3.9 Blood Type Antibody Screen Crossmatch 03/15/17 03/15/17 03/15/17 07:20 07:20 07:20 WBC RBC Hgb Hct MCV MCH MCHC RDW RDW Differential Plt Count MPV Differential Comment Diff Path Review PT 86.5 H INR 11.8 H* APTT 88.9 H Fibrinogen 388 Sodium Potassium Chloride Carbon Dioxide Anion Gap BUN Creatinine Estim Creat Clear Calc Est GFR (MDRD) Af Amer Est GFR (MDRD) Non-Af BUN/Creatinine Ratio Glucose Calcium Total Bilirubin Direct Bilirubin AST ALT Alkaline Phosphatase Total Protein Albumin Globulin Blood Type O POSITIVE Antibody Screen NEGATIVE Crossmatch See Detail Clinical Impression(s) from Imaging Studies Chest X-Ray 03/12/17 14:31 IMPRESSION: Progressive right upper lobe and right perihilar infiltration and left lower lobe infiltrate. Follow-up is recommended. Electronically Signed: Braydon Serra MD at 15:17 EST Tel [phone], Service support , Elbow X-Ray 03/12/17 14:42 IMPRESSION: Irregularity of the olecranon of the proximal ulna with soft tissue calcifications and irregularity of the cortex. This may represent a chronic osteomyelitis. Overlying soft tissue swelling. Clinical correlation is recommended. There is no evidence of joint effusion. No fracture is seen. Electronically Signed: Braydon Serra MD at 15:16 EST Tel [phone], Service support , Brain CT 03/12/17 16:13 IMPRESSION: Comminuted nasal bone and nasal septal fractures associated with opacification of the nasal cavities and nasal soft tissue swelling. Small air-fluid levels within the maxillary and sphenoid sinuses may be secondary to history of sinusitis however this may be related to recent trauma, consider dedicated maxillofacial CT for further evaluation. Bilateral periorbital hematomas. Electronically Signed: Kayla Rodriguez MD at 17:22 EST Tel , Service support , Facial/Sinus 03/12/17 19:04 IMPRESSION: Diffuse soft tissue swelling overlying the nose. Impacted nasal bone fracture. Fracture of the nasal septum. Electronically Signed: Blaze Rodriguez MD at 20:33 EST , Service support , Chest X-Ray 03/15/17 06:43 IMPRESSION: Increasing bilateral pulmonary infiltrates Electronically Signed: Esdras Crowe MD, FACR at 7:34 EST , Service support , Assessment/Plan Active and Suspected Problems Closed head injury (Acute) Nasal bone fractures (Acute) Epistaxis (Acute) RECOMMENDATIONS: 1. Obtain CMP and fibrinogen 2. Repeat INR following FFP 3. Consider increasing Haldol 4. Likely okay to de-escalate antibiotics from Zosyn 5. No transfer to intensive care unit at this time IMPRESSIONS: 1. Acute respiratory insufficiency secondary to epistaxis secondary to closed head injury/nasal bone fracture/reported COPD Patient does have increasing infiltrates on chest x-ray, but appears to be tolerating these well. Patient continues to be on room air. Use of bronchodilators is likely acceptable. Clinical suspicion that once INR is normalized, aspiration of blood will improve. Recommend repeat INR following FFP. Clinical suspicion for aspiration of blood leading to increased infiltrates. This would not require increased antibiotic spectrum. Patient likely could be de-escalated from Zosyn therapy, but defer to primary team. Would not recommend steroids at this time. Very much doubt the patient would be able to tolerate any pulmonary function test for quantification of lung function. Recommend treating subjectively for now. 2. Significant coagulopathy/thrombocytopenia/acute blood loss anemia Unclear etiology. Liver function tests are within normal limits except for a depressed albumin at 2.5. INR is elevated. This could be consistent with cirrhosis. Normal fibrinogen makes consumptive coagulopathy unlikely. Patient is receiving blood products at this time. 3. Acute kidney injury Clinical suspicion for dehydration with prerenal etiology secondary to decreased p.o. intake. Continue slow rehydration and volume resuscitation with blood products. Creatinine is improving. 4. Hypothyroidism/dementia/debility/paranoid schizophrenia/frontotemporal Dementia Complicates care, management, recovery and prognosis. Code Visit Inpatient E&M: 19997 Init Hosp L3
[2017-03-15 15:46] LABS: International Normalized Ratio 1.7; Prothrombin Time (Protime)PT. 19.4 SECONDS (11.7-14.9)
[2017-03-16] VITALS (25 sets, daily range): BP systolic 103–147; BP diastolic 46–122; PULSE 62–105; RESP 18–26; TEMP 36.8–37.8; O2SAT 84–97
[2017-03-16] MEDS: LORazepam 2 MG/ML Syringe IV ×2 (00:06→09:36)
[2017-03-16] MEDS: DiphenhydrAMINE 50 MG/ML Syringe IV (00:06)
[2017-03-16] MEDS: 0.9% Normal Saline 1,000 ML 125 ML IV (00:50)
[2017-03-16] MEDS: Haloperidol Lactate 5 MG/ML Vial IV ×3 (04:22→17:39)
[2017-03-16 05:23] LABS: Hematocrit 21.5 % (40-54); Hemoglobin 7.2 g/dl (13.0-16.5); Mean Corp Hgb Conc 33.5 g/gl (32-36); Mean Corpuscular Hgb 31.4 pg (27.0-32.0); Mean Corpuscular Volume 93.9 fL (80-94); Mean Platelet Vol. 13.6 fl (6.2-12.0); Platelet Count 89 K/mm3 (150-450); RBC Distribution Width CV 16.7 % (11.6-14.6); RBC Distribution Width SD 55.9 fl (35.1-43.9); Red Blood Count 2.29 M/mm3 (4.6-6.2); White Blood Count 13.9 K/mm3 (4.4-11.0)
[2017-03-16 05:25] LABS: Scan Indicated on CBC? Y/N NO
[2017-03-16 05:31] LABS: International Normalized Ratio 1.3; Prothrombin Time (Protime)PT. 15.8 SECONDS (11.7-14.9)
[2017-03-16 05:32] LABS: Partial Thromboplast Time 42.3 Seconds (24.1-36.2)
[2017-03-16 05:42] LABS: Anion Gap 8 (5-15); BUN 38 mg/dL (7-18); BUN/Creat Ratio 23.3 RATIO (10-20); Calcium,Total 8.1 mg/dL (8.5-10.1); Chloride 117 mmol/L (98-107); Creatinine, Serum 1.63 mg/dL (0.70-1.30); EST Glomerular Filtration Rate 45 mL/min (>60); Est Glom Filt Rate - Afr Amer 54 mL/min (>60); Estimated Creatinine Clearance 42.55 ml/min; Glucose 90 mg/dL (74-106); Potassium 3.8 mmol/L (3.5-5.1); Sodium Level 148 mmol/L (136-145)
[2017-03-16] MEDS: Piperacil/Tazobactam 3.375 GM/50 ML ML IV ×3 (06:00→22:21)
[2017-03-16] MEDS: Ipratropium/Albuterol Sulfate 3 ML AMPUL.NEB INHALATION ×5 (06:50→23:20)
--- NOTE | 2017-03-16 07:34 | PCM.PROGNOTE ---
Patient Problems: Active and Suspected Problems Closed head injury (Acute) Nasal bone fractures (Acute) Epistaxis (Acute) Subjective: Chief complaint: Follow-up after admission for fall, impacted nasal bone fracture/fracture of the nasal septum, bilateral periorbital hematoma, suspected aspiration pneumonia, acute blood loss anemia, acute kidney injury and coagulopathy. Patient seen and examined. He remained agitated, restless, restrained. He has been getting IV Haldol, Ativan and Phenergan without any improvement. He is still disoriented, and coherent speech. He was able to answer one question and he said no for pain. Apparently, patient has been on multiple psych medications that he has been off for few days. According to nursing staff, patient is refusing to take any pills by mouth. He is cleared by speech therapy to have pur?ed diet. Bubba of low-grade fever last night, blood pressure stable, pulse ox has been in the high 80s on room air. - Physical Exam General: Alert, Disoriented, - - Restless, agitated. HEENT: PERRLA, EOMI, - - Traumatic, bilateral periorbital hematoma. Oral: Moist Mucosa, No Gingival or Mucosal Lesions/ Ulcerations Neck: Supple, No JVD, Negative Carotid Bruits, Trachea Midline, Thyroid Normal Size and Texture Lungs: Clear to auscultation, No wheeze, No rales, Diminished, Rhonchi Cardiovascular: Regular rate, Regular Rhythm, Normal S1, Normal S2, PMI Normal Abdomen: Bowel Sounds Present, Soft, Non Tender, Non-Distended, No Hepato-splenomegaly Extremities: No clubbing, No cyanosis, No edema Skin: No rashes, No breakdown Lymphatic: No Cervical, Supraclavicular, or Inguinal Adenopathy Neurological: Cranial nerves II-XII grossly intact, - - Moving all limbs. Psych/Mental Status: Agitated, Restless Vital Signs Temp Pulse Resp BP Pulse Ox 98.7 F 69 20 H 108/57 L 84 03/16/17 06:00 03/16/17 06:00 03/16/17 06:00 03/16/17 06:00 03/16/17 06:00 Oxygen Flow Rate 8 Oxygen Delivery Method Room Air Weight: 157 lb 10.088 oz Intake and Output for Last 24 Hours 03/14/17 03/15/17 03/16/17 23:59 23:59 23:59 Intake Total 3160.3 / 3160.3 2862 / 2862 923.3 / 923.3 Output Total 1650 / 1650 3000 / 3000 400 / 400 Balance 1510.3 / 1510.3 -138 / -138 523.3 / 523.3 Microbiology Past 72 Hours 03/13/17 03:30 Streptococcus pneumoniae Antigen (M - Final Urine, Clean Catch Laboratory Tests Past 24 Hrs 03/15/17 03/15/17 03/15/17 05:40 07:20 07:20 WBC RBC Hgb Hct MCV MCH MCHC RDW RDW Differential Plt Count MPV PT 86.5 H INR 11.8 H* APTT 88.9 H Fibrinogen Sodium Potassium Chloride Carbon Dioxide Anion Gap BUN Creatinine Estim Creat Clear Calc Est GFR (MDRD) Af Amer Est GFR (MDRD) Non-Af BUN/Creatinine Ratio Glucose Calcium Total Bilirubin 0.60 Direct Bilirubin 0.22 AST 166 H ALT 54 Alkaline Phosphatase 96 Total Protein 6.4 Albumin 2.5 L Globulin 3.9 Blood Type O POSITIVE Antibody Screen NEGATIVE Crossmatch See Detail 03/15/17 03/15/17 03/16/17 07:20 15:10 05:10 WBC RBC Hgb Hct MCV MCH MCHC RDW RDW Differential Plt Count MPV PT 19.4 H INR 1.7 APTT Fibrinogen 388 Sodium 148 H Potassium 3.8 Chloride 117 H Carbon Dioxide 23.0 Anion Gap 8 BUN 38 H Creatinine 1.63 H Estim Creat Clear Calc 42.55 Est GFR (MDRD) Af Amer 54 L Est GFR (MDRD) Non-Af 45 L BUN/Creatinine Ratio 23.3 H Glucose 90 Calcium 8.1 L Total Bilirubin Direct Bilirubin AST ALT Alkaline Phosphatase Total Protein Albumin Globulin Blood Type Antibody Screen Crossmatch 03/16/17 03/16/17 05:10 05:10 WBC 13.9 H RBC 2.29 L Hgb 7.2 L Hct 21.5 L MCV 93.9 MCH 31.4 MCHC 33.5 RDW 16.7 H RDW Differential 55.9 H Plt Count 89 L MPV 13.6 H PT 15.8 H INR 1.3 APTT 42.3 H Fibrinogen Sodium Potassium Chloride Carbon Dioxide Anion Gap BUN Creatinine Estim Creat Clear Calc Est GFR (MDRD) Af Amer Est GFR (MDRD) Non-Af BUN/Creatinine Ratio Glucose Calcium Total Bilirubin Direct Bilirubin AST ALT Alkaline Phosphatase Total Protein Albumin Globulin Blood Type Antibody Screen Crossmatch Assessment/Plan Active and Suspected Problems Closed head injury (Acute) Nasal bone fractures (Acute) Epistaxis (Acute) This is a 66 years old male patient admitted because of fall complicated by a closed head injury, impacted nasal bone fracture/fracture of the nasal septum, bilateral periorbital hematomas, suspected aspiration pneumonia, acute blood loss anemia as well as acute kidney injury., He was found to have coagulopathy with highly elevated INR, PT and PTT with unclear etiology. #1 fall/closed head injury/bilateral periorbital hematomas: Remained stable, no focal deficit. CT scan brain done on admission reviewed. Revealed bilateral preoperative hematoma as well as fractures mentioned below. Since remained agitated and restless. Apparently, he has been on multiple psychiatric medications that he has been off for few days. Recommend to start old psychiatric medications but patient has been refusing to take anything by mouth. We will try to give him his morning meds with breakfast. #2 impacted nasal bone fracture/fracture of the nasal septum/epistaxis: Status post packing of the right nostril ?2. X-ray of the nasal bone as well as CT scan brain reviewed. ENT on the case and following. At this time, no evidence of active bleeding from the right nostril. #3 coagulopathy: His INR, PT and PTT was highly elevated yesterday. He received 2 units of fresh frozen plasma and vitamin K 10 mg ?1. INR was 11.8 yesterday, came down to 1.3 today. His PT was 86.5 and today came down to 15.8, PTT is down to 42. Fibrinogen was normal. There was no reported patient has been on any anticoagulants and it is not clear why this patient has a slightly elevated INR. His LFT is normal. #4 suspected aspiration pneumonia: Remained on IV Zosyn. Repeat chest x-ray from yesterday revealed increasing bilateral pulmonary infiltrate. Pneumococcal antigen is negative. Blood cultures showed no growth in 48 hours. Pulmonary consulted. Plan: Continue same treatment. #5 acute on chronic blood loss anemia: Secondary to epistaxis. Today's hemoglobin came down to 7.2 g/dL. he received 2 units of packed RBCs. He does have chronic anemia with baseline hemoglobin around 9-11 g/dL. plan to transfuse 2 more units of blood. #6 acute kidney injury: Probably prerenal because of dehydration. Baseline creatinine is normal. Admission creatinine was 1.88, today's creatinine is 1.60, slightly up from yesterday. His sodium was 148. Plan: Encourage oral intake, change IV fluids to half-normal saline, repeat BMP tomorrow morning. #7 thrombocytopenia: Chronic, unclear etiology. Today's platelet count is 89,000, remained stable compared to yesterday.. #8 hypothyroidism: Continue levothyroxine with patient started to take p.o. #9 dementia: Supportive care. #10 COPD: Stable, is on DuoNeb every 4 hours. #11 DVT prophylaxis: SCDs. This note was generated with edupristine dictation software. It may contain incorrect words, spelling, and punctuation that were not noted in checking the note before signing. Code Visit Inpatient E&M: 97993 Subs Hosp L3
--- NOTE | 2017-03-16 07:43 | PN_ITS ---
Patient Problems: Active and Suspected Problems Closed head injury (Acute) Nasal bone fractures (Acute) Epistaxis (Acute) Subjective: Chief complaint: Follow-up after admission for fall, impacted nasal bone fracture/fracture of the nasal septum, bilateral periorbital hematoma, suspected aspiration pneumonia, acute blood loss anemia, acute kidney injury and coagulopathy. Patient seen and examined. He remained agitated, restless, restrained. He has been getting IV Haldol, Ativan and Phenergan without any improvement. He is still disoriented, and coherent speech. He was able to answer one question and he said no for pain. Apparently, patient has been on multiple psych medications that he has been off for few days. According to nursing staff, patient is refusing to take any pills by mouth. He is cleared by speech therapy to have pur?ed diet. Bubba of low-grade fever last night, blood pressure stable, pulse ox has been in the high 80s on room air. - Physical Exam General: Alert, Disoriented, - - Restless, agitated. HEENT: PERRLA, EOMI, - - Traumatic, bilateral periorbital hematoma. Oral: Moist Mucosa, No Gingival or Mucosal Lesions/ Ulcerations Neck: Supple, No JVD, Negative Carotid Bruits, Trachea Midline, Thyroid Normal Size and Texture Lungs: Clear to auscultation, No wheeze, No rales, Diminished, Rhonchi Cardiovascular: Regular rate, Regular Rhythm, Normal S1, Normal S2, PMI Normal Abdomen: Bowel Sounds Present, Soft, Non Tender, Non-Distended, No Hepato- splenomegaly Extremities: No clubbing, No cyanosis, No edema Skin: No rashes, No breakdown Lymphatic: No Cervical, Supraclavicular, or Inguinal Adenopathy Neurological: Cranial nerves II-XII grossly intact, - - Moving all limbs. Psych/Mental Status: Agitated, Restless Vital Signs Temp Pulse Resp BP Pulse Ox 98.7 F 69 20 H 108/57 L 84 03/16/17 06:00 03/16/17 06:00 03/16/17 06:00 03/16/17 06:00 03/16/17 06:00 Oxygen Flow Rate 8 Oxygen Delivery Method Room Air Weight: 157 lb 10.088 oz Intake and Output for Last 24 Hours 03/14/17 03/15/17 03/16/17 23:59 23:59 23:59 Intake Total 3160.3 / 3160.3 2862 / 2862 923.3 / 923.3 Output Total 1650 / 1650 3000 / 3000 400 / 400 Balance 1510.3 / 1510.3 -138 / -138 523.3 / 523.3 Microbiology Past 72 Hours 03/13/17 03:30 Streptococcus pneumoniae Antigen (M - Final Urine, Clean Catch Laboratory Tests Past 24 Hrs 03/15/17 03/15/17 03/15/17 05:40 07:20 07:20 WBC RBC Hgb Hct MCV MCH MCHC RDW RDW Differential Plt Count MPV PT 86.5 H INR 11.8 H* APTT 88.9 H Fibrinogen Sodium Potassium Chloride Carbon Dioxide Anion Gap BUN Creatinine Estim Creat Clear Calc Est GFR (MDRD) Af Amer Est GFR (MDRD) Non-Af BUN/Creatinine Ratio Glucose Calcium Total Bilirubin 0.60 Direct Bilirubin 0.22 AST 166 H ALT 54 Alkaline Phosphatase 96 Total Protein 6.4 Albumin 2.5 L Globulin 3.9 Blood Type O POSITIVE Antibody Screen NEGATIVE Crossmatch See Detail 03/15/17 03/15/17 03/16/17 07:20 15:10 05:10 WBC RBC Hgb Hct MCV MCH MCHC RDW RDW Differential Plt Count MPV PT 19.4 H INR 1.7 APTT Fibrinogen 388 Sodium 148 H Potassium 3.8 Chloride 117 H Carbon Dioxide 23.0 Anion Gap 8 BUN 38 H Creatinine 1.63 H Estim Creat Clear Calc 42.55 Est GFR (MDRD) Af Amer 54 L Est GFR (MDRD) Non-Af 45 L BUN/Creatinine Ratio 23.3 H Glucose 90 Calcium 8.1 L Total Bilirubin Direct Bilirubin AST ALT Alkaline Phosphatase Total Protein Albumin Globulin Blood Type Antibody Screen Crossmatch 03/16/17 03/16/17 05:10 05:10 WBC 13.9 H RBC 2.29 L Hgb 7.2 L Hct 21.5 L MCV 93.9 MCH 31.4 MCHC 33.5 RDW 16.7 H RDW Differential 55.9 H Plt Count 89 L MPV 13.6 H PT 15.8 H INR 1.3 APTT 42.3 H Fibrinogen Sodium Potassium Chloride Carbon Dioxide Anion Gap BUN Creatinine Estim Creat Clear Calc Est GFR (MDRD) Af Amer Est GFR (MDRD) Non-Af BUN/Creatinine Ratio Glucose Calcium Total Bilirubin Direct Bilirubin AST ALT Alkaline Phosphatase Total Protein Albumin Globulin Blood Type Antibody Screen Crossmatch Assessment/Plan Active and Suspected Problems Closed head injury (Acute) Nasal bone fractures (Acute) Epistaxis (Acute) This is a 66 years old male patient admitted because of fall complicated by a closed head injury, impacted nasal bone fracture/fracture of the nasal septum, bilateral periorbital hematomas, suspected aspiration pneumonia, acute blood loss anemia as well as acute kidney injury., He was found to have coagulopathy with highly elevated INR, PT and PTT with unclear etiology. #1 fall/closed head injury/bilateral periorbital hematomas: Remained stable, no focal deficit. CT scan brain done on admission reviewed. Revealed bilateral preoperative hematoma as well as fractures mentioned below. Since remained agitated and restless. Apparently, he has been on multiple psychiatric medications that he has been off for few days. Recommend to start old psychiatric medications but patient has been refusing to take anything by mouth. We will try to give him his morning meds with breakfast. #2 impacted nasal bone fracture/fracture of the nasal septum/epistaxis: Status post packing of the right nostril ?2. X-ray of the nasal bone as well as CT scan brain reviewed. ENT on the case and following. At this time, no evidence of active bleeding from the right nostril. #3 coagulopathy: His INR, PT and PTT was highly elevated yesterday. He received 2 units of fresh frozen plasma and vitamin K 10 mg ?1. INR was 11.8 yesterday, came down to 1.3 today. His PT was 86.5 and today came down to 15.8 , PTT is down to 42. Fibrinogen was normal. There was no reported patient has been on any anticoagulants and it is not clear why this patient has a slightly elevated INR. His LFT is normal. #4 suspected aspiration pneumonia: Remained on IV Zosyn. Repeat chest x-ray from yesterday revealed increasing bilateral pulmonary infiltrate. Pneumococcal antigen is negative. Blood cultures showed no growth in 48 hours. Pulmonary consulted. Plan: Continue same treatment. #5 acute on chronic blood loss anemia: Secondary to epistaxis. Today's hemoglobin came down to 7.2 g/dL. he received 2 units of packed RBCs. He does have chronic anemia with baseline hemoglobin around 9-11 g/dL. plan to transfuse 2 more units of blood. #6 acute kidney injury: Probably prerenal because of dehydration. Baseline creatinine is normal. Admission creatinine was 1.88, today's creatinine is 1.60 , slightly up from yesterday. His sodium was 148. Plan: Encourage oral intake , change IV fluids to half-normal saline, repeat BMP tomorrow morning. #7 thrombocytopenia: Chronic, unclear etiology. Today's platelet count is 89, 000, remained stable compared to yesterday.. #8 hypothyroidism: Continue levothyroxine with patient started to take p.o. #9 dementia: Supportive care. #10 COPD: Stable, is on DuoNeb every 4 hours. #11 DVT prophylaxis: SCDs. This note was generated with [employer] dictation software. It may contain incorrect words, spelling, and punctuation that were not noted in checking the note before signing. Code Visit Inpatient E&M: 24115 Subs Hosp L3
--- NOTE | 2017-03-16 08:12 | CPS ---
AEROSOL RX GIVEN BY BLOW BY. PT AGITATED DURING RX . RX ENDED EARLY DUE TO PT'S INCREASING AGITATION/COMBATIVENESS.
[2017-03-16] MEDS: 0.45% Normal Saline 1,000 ML 75 ML IV (08:43)
[2017-03-16] MEDS: ChlorproMAZINE 25 MG Tablet PO ×2 (08:45→22:17)
[2017-03-16] MEDS: ARIPiprazole 10 MG Tablet PO ×2 (08:46→22:17)
[2017-03-16] MEDS: Divalproex Sodium 125 MG SPRINKLE PO ×2 (08:46→22:17)
[2017-03-16] MEDS: Benztropine 2 MG Tablet 1 MG PO (08:47)
[2017-03-16] MEDS: clonazePAM 1 MG Tablet 2 MG PO ×4 (08:48→22:23)
[2017-03-16] MEDS: 0.9% NaCl Peripheral Flush Adult/Peds IV ×3 (09:36→17:38)
--- NOTE | 2017-03-16 10:05 | PN_ITS ---
Patient Problems: Active and Suspected Problems Closed head injury (Acute) Nasal bone fractures (Acute) Epistaxis (Acute) Subjective: Patient did well overnight. Patient's behavior is slightly improved compared to previous. No bleeding has been reported in Rhino Rocket has remained in place. Patient is denying pain at this time. A nurse from patient's halfway was at the bedside. She reported that his current behavior is consistent with being off of medications. In her experience, it will take 24-48 hours to get back to his normal baseline, which is directable. - Physical Exam General: Alert, No apparent distress, Disoriented, Non-Cooperative, - - Still very spontaneous in his actions, but improved from previous HEENT: - - Swelling periorbital appears to be improving. Rhino Rocket in place Oral: Moist Mucosa, No Gingival or Mucosal Lesions/ Ulcerations Neck: Supple, No JVD, No Nodes, Trachea Midline Lungs: No rhonchi, No wheeze, No rales, Diminished, - - Symmetric expansion. No dullness to percussion. Cardiovascular: Regular rate, Regular Rhythm, Normal S1, Normal S2, No murmurs, No rub noted, No Gallop Abdomen: Bowel Sounds Present, Soft, Non Tender, Non-Distended Extremities: No clubbing, No cyanosis, No edema, Capillary Refill Less than 3 Seconds Skin: No rashes, No breakdown, - - Wounds appear to be improved compared to previous Musculoskeletal: No Tenderness to Palpation of Joints or Extremities Lymphatic: No Cervical, Supraclavicular, or Inguinal Adenopathy Neurological: Cranial nerves II-XII grossly intact, Neuro grossly intact, Motor Exam 5/5 strength throughout Psych/Mental Status: Anxious, Impulsive, Restless Vital Signs Temp Pulse Resp BP Pulse Ox 37.3 C H 71 18 147/122 H 92 03/16/17 09:09 03/16/17 09:09 03/16/17 09:09 03/16/17 09:09 03/16/17 09:09 Oxygen Flow Rate 8 Oxygen Delivery Method Room Air Weight: 71.5 kg Intake and Output for Last 24 Hours 03/14/17 03/15/17 03/16/17 23:59 23:59 23:59 Intake Total 3160.3 / 3160.3 2862 / 2862 1273.3 / 1273.3 Output Total 1650 / 1650 3000 / 3000 400 / 400 Balance 1510.3 / 1510.3 -138 / -138 873.3 / 873.3 Microbiology Past 72 Hours 03/13/17 03:30 Streptococcus pneumoniae Antigen (M - Final Urine, Clean Catch Laboratory Tests Past 24 Hrs 03/15/17 03/15/17 03/15/17 05:40 07:20 07:20 WBC RBC Hgb Hct MCV MCH MCHC RDW RDW Differential Plt Count MPV PT INR APTT Fibrinogen 388 Sodium Potassium Chloride Carbon Dioxide Anion Gap BUN Creatinine Estim Creat Clear Calc Est GFR (MDRD) Af Amer Est GFR (MDRD) Non-Af BUN/Creatinine Ratio Glucose Calcium Total Bilirubin 0.60 Direct Bilirubin 0.22 AST 166 H ALT 54 Alkaline Phosphatase 96 Total Protein 6.4 Albumin 2.5 L Globulin 3.9 Blood Type O POSITIVE Antibody Screen NEGATIVE Crossmatch See Detail 03/15/17 03/15/17 03/16/17 07:20 15:10 05:10 WBC RBC Hgb Hct MCV MCH MCHC RDW RDW Differential Plt Count MPV PT 19.4 H INR 1.7 APTT Fibrinogen Sodium 148 H Potassium 3.8 Chloride 117 H Carbon Dioxide 23.0 Anion Gap 8 BUN 38 H Creatinine 1.63 H Estim Creat Clear Calc 42.55 Est GFR (MDRD) Af Amer 54 L Est GFR (MDRD) Non-Af 45 L BUN/Creatinine Ratio 23.3 H Glucose 90 Calcium 8.1 L Total Bilirubin Direct Bilirubin AST ALT Alkaline Phosphatase Total Protein Albumin Globulin Blood Type Antibody Screen Crossmatch See Detail 03/16/17 03/16/17 05:10 05:10 WBC 13.9 H RBC 2.29 L Hgb 7.2 L Hct 21.5 L MCV 93.9 MCH 31.4 MCHC 33.5 RDW 16.7 H RDW Differential 55.9 H Plt Count 89 L MPV 13.6 H PT 15.8 H INR 1.3 APTT 42.3 H Fibrinogen Sodium Potassium Chloride Carbon Dioxide Anion Gap BUN Creatinine Estim Creat Clear Calc Est GFR (MDRD) Af Amer Est GFR (MDRD) Non-Af BUN/Creatinine Ratio Glucose Calcium Total Bilirubin Direct Bilirubin AST ALT Alkaline Phosphatase Total Protein Albumin Globulin Blood Type Antibody Screen Crossmatch Assessment/Plan Active and Suspected Problems Closed head injury (Acute) Nasal bone fractures (Acute) Epistaxis (Acute) RECOMMENDATIONS: 1. Repeat INR tomorrow 2. Rhino Rocket management per ENT 3. Reinitiation of baseline antipsychotics 4. Likely okay to de-escalate antibiotics from Zosyn 5. No transfer to intensive care unit at this time IMPRESSIONS: 1. Acute respiratory insufficiency secondary to epistaxis secondary to closed head injury/nasal bone fracture/reported COPD Patient does have increasing infiltrates on chest x-ray, but appears to be tolerating these well. Patient continues to be on room air, but oxygenation is slightly worse compared to previous. Use of bronchodilators is likely acceptable. Given normalization of INR, anticipate no further aspiration of blood. Do not believe this indicates diffuse alveolar hemorrhage. Would not recommend steroids at this time. Likely okay to de-escalate antibiotics to aspiration coverage. Would recommend adding nasal cannula oxygen if saturations dipped into the 80s insistently 2. Significant coagulopathy/thrombocytopenia/acute blood loss anemia Unclear etiology. Liver function tests are within normal limits except for a depressed albumin at 2.5. INR was elevated. This could be consistent with cirrhosis. Normal fibrinogen makes consumptive coagulopathy unlikely. Recheck INR tomorrow to be sure there is no significant increase in INR. No active reversal is indicated at this time. 3. Acute kidney injury Clinical suspicion for dehydration with prerenal etiology secondary to decreased p.o. intake. Continue slow rehydration and volume resuscitation with blood products. Creatinine is improving. 4. Hypothyroidism/dementia/debility/paranoid schizophrenia/frontotemporal Dementia Complicates care, management, recovery and prognosis. Code Visit Inpatient E&M: 29642 Subs Hosp L2
--- NOTE | 2017-03-16 11:10 | CPS ---
AEROSOL RX ATTEMPTED BLOW BY X 3 MIN. PT BECAME MORE AGITATED AND RESTLESS. RX TERMINATED AFTER 3 MIN.
[2017-03-16 14:47] LABS: Pathologist Review Reviewed
[2017-03-16] MEDS: QUEtiapine 100 MG Tablet 200 MG PO ×2 (15:17→22:17)
--- NOTE | 2017-03-16 15:31 | CPS ---
AEROSOL WAS ATTEMPTED BY BLOW BY METHOD. RX ENDED EARLY DUE TO PT'S INCREASED AGITATION WITH AEROSOL.
[2017-03-17] VITALS (19 sets, daily range): BP systolic 105–153; BP diastolic 48–74; PULSE 68–137; RESP 18–33; TEMP 36.8–37.7; O2SAT 80–94
--- NOTE | 2017-03-17 00:20 | NURSING ---
RN FROM [facility] HERE TO SEE THE PATIENT AND WAS UPDATED ON HIS STATUS.
[2017-03-17] MEDS: Ipratropium/Albuterol Sulfate 3 ML AMPUL.NEB INHALATION ×5 (03:45→18:34)
[2017-03-17] MEDS: 0.45% Normal Saline 1,000 ML 75 ML IV (04:55)
[2017-03-17 05:28] LABS: Anion Gap 11 (5-15); BUN 39 mg/dL (7-18); BUN/Creat Ratio 23.9 RATIO (10-20); Calcium,Total 8.2 mg/dL (8.5-10.1); Chloride 116 mmol/L (98-107); Creatinine, Serum 1.63 mg/dL (0.70-1.30); EST Glomerular Filtration Rate 45 mL/min (>60); Est Glom Filt Rate - Afr Amer 54 mL/min (>60); Estimated Creatinine Clearance 42.55 ml/min; Glucose 148 mg/dL (74-106); Potassium 3.8 mmol/L (3.5-5.1); Sodium Level 148 mmol/L (136-145)
[2017-03-17 05:36] LABS: International Normalized Ratio 1.3; Prothrombin Time (Protime)PT. 15.3 SECONDS (11.7-14.9)
[2017-03-17 05:40] LABS: Hematocrit 30.3 % (40-54); Hemoglobin 10.1 g/dl (13.0-16.5); Mean Corp Hgb Conc 33.3 g/gl (32-36); Mean Corpuscular Hgb 30.5 pg (27.0-32.0); Mean Corpuscular Volume 91.5 fL (80-94); POSITIVE COUNT NO; POSITIVE DIFFERENTIAL NO; POSITIVE MORPHOLOGY NO; Platelet Count 143 K/mm3 (150-450); RBC Distribution Width CV 16.6 % (11.6-14.6); RBC Distribution Width SD 55.2 fl (35.1-43.9); Red Blood Count 3.31 M/mm3 (4.6-6.2); White Blood Count 14.6 K/mm3 (4.4-11.0)
[2017-03-17 05:41] LABS: Absolute Nucleated RBC Count 0.24 10^3/uL (0-5); Basophil# 0.04 X10^3/uL; Basophil% 0.3 % (0-1); Eosinophil# 0.04 X10^3/uL; Eosinophils% 0.3 % (0-5); Monocyte# 1.46 X10^3/uL; NRBC Flagged by Analyzer 1.7 % (0-5); Neutrophil # 10.99 X10^3/uL (2.7-7.7); Neutrophil % 75.2 % (47-70)
[2017-03-17] MEDS: Piperacil/Tazobactam 3.375 GM/50 ML ML IV (05:52)
--- NOTE | 2017-03-17 07:45 | PCM.PROGNOTE ---
Patient Problems: Active and Suspected Problems Epistaxis (Acute) Nasal bone fractures (Acute) Closed head injury (Acute) Subjective: Chief complaint: Follow-up after admission for fall, impacted nasal bone fracture/fracture of the nasal septum, bilateral periorbital hematoma, suspected aspiration pneumonia, acute blood loss anemia, acute kidney injury and coagulopathy. Patient seen and examined. No acute events overnight. Today, patient is more calm and resting. Vital signs are stable. - Physical Exam General: Alert, Cooperative, Disoriented HEENT: PERRLA, EOMI, - - Traumatic , bilateral periorbital hematoma. Oral: Moist Mucosa, No Gingival or Mucosal Lesions/ Ulcerations Neck: Supple, No JVD, Negative Carotid Bruits Lungs: Clear to auscultation, No wheeze, No rales, Diminished, Rhonchi Cardiovascular: Regular rate, Regular Rhythm, Normal S1, Normal S2, PMI Normal Abdomen: Bowel Sounds Present, Soft, Non Tender, Non-Distended, No Hepato-splenomegaly Extremities: No clubbing, No cyanosis, No edema Skin: No rashes, No breakdown Lymphatic: No Cervical, Supraclavicular, or Inguinal Adenopathy Neurological: Cranial nerves II-XII grossly intact, - - Moving all limbs. Psych/Mental Status: Anxious Vital Signs Temp Pulse Resp BP Pulse Ox 98.2 F 89 24 H 133/58 H 93 03/17/17 05:59 03/17/17 07:25 03/17/17 07:09 03/17/17 05:59 03/17/17 07:09 Oxygen Flow Rate 8 Oxygen Delivery Method Room Air Weight: 157 lb 10.088 oz Intake and Output for Last 24 Hours 03/15/17 03/16/17 03/17/17 23:59 23:59 23:59 Intake Total 2862 / 2862 2189.3 / 2189.3 1360 / 1360 Output Total 3000 / 3000 825 / 825 Balance -138 / -138 1364.3 / 1364.3 1360 / 1360 Laboratory Tests Past 24 Hrs 03/15/17 03/15/17 03/15/17 05:40 07:20 07:20 WBC RBC Hgb Hct MCV MCH MCHC RDW RDW Differential Plt Count MPV Immature Gran % (Auto) Neut % (Auto) Lymph % (Auto) Grainger % (Auto) Eos % (Auto) Baso % (Auto) Absolute Neuts (auto) Absolute Lymphs (auto) Total Counted Nucleated RBC % Diff Path Review Reviewed Absolute Retic PT INR Sodium Potassium Chloride Carbon Dioxide Anion Gap BUN Creatinine Estim Creat Clear Calc Est GFR (MDRD) Af Amer Est GFR (MDRD) Non-Af BUN/Creatinine Ratio Glucose Calcium Crossmatch See Detail See Detail 03/17/17 03/17/17 03/17/17 05:10 05:10 05:10 WBC 14.6 H RBC 3.31 L Hgb 10.1 L Hct 30.3 L MCV 91.5 MCH 30.5 MCHC 33.3 RDW 16.6 H RDW Differential 55.2 H Plt Count 143 L MPV 12.0 Immature Gran % (Auto) 1.200 H Neut % (Auto) 75.2 H Lymph % (Auto) 13.0 L Grainger % (Auto) 10.0 Eos % (Auto) 0.3 Baso % (Auto) 0.3 Absolute Neuts (auto) 11.0 H Absolute Lymphs (auto) 1.90 Total Counted Not Reportable Nucleated RBC % 1.7 Diff Path Review May foll Absolute Retic 0.24 PT 15.3 H INR 1.3 Sodium 148 H Potassium 3.8 Chloride 116 H Carbon Dioxide 21.0 Anion Gap 11 BUN 39 H Creatinine 1.63 H Estim Creat Clear Calc 42.55 Est GFR (MDRD) Af Amer 54 L Est GFR (MDRD) Non-Af 45 L BUN/Creatinine Ratio 23.9 H Glucose 148 H Calcium 8.2 L Crossmatch Assessment/Plan Active and Suspected Problems Epistaxis (Acute) Nasal bone fractures (Acute) Closed head injury (Acute) This is a 66 years old male patient admitted because of fall complicated by a closed head injury, impacted nasal bone fracture/fracture of the nasal septum, bilateral periorbital hematomas, suspected aspiration pneumonia, acute blood loss anemia as well as acute kidney injury., He was found to have coagulopathy with highly elevated INR, PT and PTT with unclear etiology. #1 fall/closed head injury/bilateral periorbital hematomas: Remained stable, no focal deficit. Today, he is more calm and rested, less agitated. CT scan brain done on admission reviewed. He was started back on his psychiatric medications and today he looked more resting and comfortable. #2 impacted nasal bone fracture/fracture of the nasal septum/epistaxis: Status post packing of the right nostril ?2. X-ray of the nasal bone as well as CT scan brain reviewed. ENT on the case and following. At this time, no evidence of active bleeding from the right nostril. #3 coagulopathy: His INR, PT and PTT was highly elevated yesterday. He received 2 units of fresh frozen plasma and vitamin K 10 mg ?1. INR was 11.8 yesterday, came down to 1.3 today. Fibrinogen was normal. There was no reported patient has been on any anticoagulants and it is not clear why this patient has elevated INR. His LFT is normal. #4 suspected aspiration pneumonia: Remained on IV Zosyn. Repeat chest x-ray from yesterday revealed increasing bilateral pulmonary infiltrate which could be due to aspiration of blood to his lungs. Pneumococcal antigen is negative. Blood cultures showed no growth in 48 hours. Pulmonary consulted. Plan: Continue same treatment. #5 acute on chronic blood loss anemia: Secondary to epistaxis. Today's hemoglobin came down to 0.1 g/dL. he received a total of 4 units of packed RBCs. He does have chronic anemia with baseline hemoglobin around 9-11 g/dL. plan to repeat CBC tomorrow morning #6 acute kidney injury: Probably prerenal because of dehydration. Baseline creatinine is normal. Admission creatinine was 1.88, today's creatinine is 1.63, remained the same compared to yesterday. His sodium was 148. Plan: DC IV fluids, encourage oral intake. #7 thrombocytopenia: Chronic, unclear etiology. Today's platelet count is 143,000, improved. #8 hypothyroidism: Continue levothyroxine. #9 dementia: Supportive care. #10 COPD: Stable, is on DuoNeb every 4 hours. #11 DVT prophylaxis: SCDs. This note was generated with [employer] dictation software. It may contain incorrect words, spelling, and punctuation that were not noted in checking the note before signing. Code Visit Inpatient E&M: 64889 Subs Hosp L2
--- NOTE | 2017-03-17 07:50 | PN_ITS ---
Patient Problems: Active and Suspected Problems Epistaxis (Acute) Nasal bone fractures (Acute) Closed head injury (Acute) Subjective: Chief complaint: Follow-up after admission for fall, impacted nasal bone fracture/fracture of the nasal septum, bilateral periorbital hematoma, suspected aspiration pneumonia, acute blood loss anemia, acute kidney injury and coagulopathy. Patient seen and examined. No acute events overnight. Today, patient is more calm and resting. Vital signs are stable. - Physical Exam General: Alert, Cooperative, Disoriented HEENT: PERRLA, EOMI, - - Traumatic , bilateral periorbital hematoma. Oral: Moist Mucosa, No Gingival or Mucosal Lesions/ Ulcerations Neck: Supple, No JVD, Negative Carotid Bruits Lungs: Clear to auscultation, No wheeze, No rales, Diminished, Rhonchi Cardiovascular: Regular rate, Regular Rhythm, Normal S1, Normal S2, PMI Normal Abdomen: Bowel Sounds Present, Soft, Non Tender, Non-Distended, No Hepato- splenomegaly Extremities: No clubbing, No cyanosis, No edema Skin: No rashes, No breakdown Lymphatic: No Cervical, Supraclavicular, or Inguinal Adenopathy Neurological: Cranial nerves II-XII grossly intact, - - Moving all limbs. Psych/Mental Status: Anxious Vital Signs Temp Pulse Resp BP Pulse Ox 98.2 F 89 24 H 133/58 H 93 03/17/17 05:59 03/17/17 07:25 03/17/17 07:09 03/17/17 05:59 03/17/17 07:09 Oxygen Flow Rate 8 Oxygen Delivery Method Room Air Weight: 157 lb 10.088 oz Intake and Output for Last 24 Hours 03/15/17 03/16/17 03/17/17 23:59 23:59 23:59 Intake Total 2862 / 2862 2189.3 / 2189.3 1360 / 1360 Output Total 3000 / 3000 825 / 825 Balance -138 / -138 1364.3 / 1364.3 1360 / 1360 Laboratory Tests Past 24 Hrs 03/15/17 03/15/17 03/15/17 05:40 07:20 07:20 WBC RBC Hgb Hct MCV MCH MCHC RDW RDW Differential Plt Count MPV Immature Gran % (Auto) Neut % (Auto) Lymph % (Auto) [place] % (Auto) Eos % (Auto) Baso % (Auto) Absolute Neuts (auto) Absolute Lymphs (auto) Total Counted Nucleated RBC % Diff Path Review Reviewed Absolute Retic PT INR Sodium Potassium Chloride Carbon Dioxide Anion Gap BUN Creatinine Estim Creat Clear Calc Est GFR (MDRD) Af Amer Est GFR (MDRD) Non-Af BUN/Creatinine Ratio Glucose Calcium Crossmatch See Detail See Detail 03/17/17 03/17/17 03/17/17 05:10 05:10 05:10 WBC 14.6 H RBC 3.31 L Hgb 10.1 L Hct 30.3 L MCV 91.5 MCH 30.5 MCHC 33.3 RDW 16.6 H RDW Differential 55.2 H Plt Count 143 L MPV 12.0 Immature Gran % (Auto) 1.200 H Neut % (Auto) 75.2 H Lymph % (Auto) 13.0 L [place] % (Auto) 10.0 Eos % (Auto) 0.3 Baso % (Auto) 0.3 Absolute Neuts (auto) 11.0 H Absolute Lymphs (auto) 1.90 Total Counted Not Reportable Nucleated RBC % 1.7 Diff Path Review May foll Absolute Retic 0.24 PT 15.3 H INR 1.3 Sodium 148 H Potassium 3.8 Chloride 116 H Carbon Dioxide 21.0 Anion Gap 11 BUN 39 H Creatinine 1.63 H Estim Creat Clear Calc 42.55 Est GFR (MDRD) Af Amer 54 L Est GFR (MDRD) Non-Af 45 L BUN/Creatinine Ratio 23.9 H Glucose 148 H Calcium 8.2 L Crossmatch Assessment/Plan Active and Suspected Problems Epistaxis (Acute) Nasal bone fractures (Acute) Closed head injury (Acute) This is a 66 years old male patient admitted because of fall complicated by a closed head injury, impacted nasal bone fracture/fracture of the nasal septum, bilateral periorbital hematomas, suspected aspiration pneumonia, acute blood loss anemia as well as acute kidney injury., He was found to have coagulopathy with highly elevated INR, PT and PTT with unclear etiology. #1 fall/closed head injury/bilateral periorbital hematomas: Remained stable, no focal deficit. Today, he is more calm and rested, less agitated. CT scan brain done on admission reviewed. He was started back on his psychiatric medications and today he looked more resting and comfortable. #2 impacted nasal bone fracture/fracture of the nasal septum/epistaxis: Status post packing of the right nostril ?2. X-ray of the nasal bone as well as CT scan brain reviewed. ENT on the case and following. At this time, no evidence of active bleeding from the right nostril. #3 coagulopathy: His INR, PT and PTT was highly elevated yesterday. He received 2 units of fresh frozen plasma and vitamin K 10 mg ?1. INR was 11.8 yesterday, came down to 1.3 today. Fibrinogen was normal. There was no reported patient has been on any anticoagulants and it is not clear why this patient has elevated INR. His LFT is normal. #4 suspected aspiration pneumonia: Remained on IV Zosyn. Repeat chest x-ray from yesterday revealed increasing bilateral pulmonary infiltrate which could be due to aspiration of blood to his lungs. Pneumococcal antigen is negative. Blood cultures showed no growth in 48 hours. Pulmonary consulted. Plan: Continue same treatment. #5 acute on chronic blood loss anemia: Secondary to epistaxis. Today's hemoglobin came down to 0.1 g/dL. he received a total of 4 units of packed RBCs. He does have chronic anemia with baseline hemoglobin around 9-11 g/dL. plan to repeat CBC tomorrow morning #6 acute kidney injury: Probably prerenal because of dehydration. Baseline creatinine is normal. Admission creatinine was 1.88, today's creatinine is 1.63 , remained the same compared to yesterday. His sodium was 148. Plan: DC IV fluids, encourage oral intake. #7 thrombocytopenia: Chronic, unclear etiology. Today's platelet count is 143, 000, improved. #8 hypothyroidism: Continue levothyroxine. #9 dementia: Supportive care. #10 COPD: Stable, is on DuoNeb every 4 hours. #11 DVT prophylaxis: SCDs. This note was generated with [employer] dictation software. It may contain incorrect words, spelling, and punctuation that were not noted in checking the note before signing. Code Visit Inpatient E&M: 32878 Subs Hosp L2
--- NOTE | 2017-03-17 09:24 | RAD_ITS ---
STUDY: X-RAY CHEST REASON FOR EXAM: Male, 66 years old. Shortness of breath and dyspnea. TECHNIQUE: Single AP portable view of the chest. COMPARISON: Comparison is made with prior examination dated March 15, 2017. FINDINGS: EKG electrodes are seen. Since prior examination, there has been progressive airspace disease in both upper lobes and right middle lobe. This is worse on the right side. Stable increased markings in the lingula segment of the left upper lobe. There is no demonstrated pleural abnormality. Normal size heart. Normal mediastinum and nohemi. Normal visualized pulmonary arteries. Normal visualized aortic arch and descending thoracic aorta. Normal visualized thoracic spine. Normal visualized ribs, clavicles, and shoulders. There is no demonstrated abnormality of the visualized soft tissue structures of the upper abdomen. RAD/Chest 1 View (Portable) IMPRESSION: Since prior study, there is a progression of the bilateral airspace disease worse in the right hemithorax. Electronically Signed: Braydon Serra MD at 10:40 EST Tel [phone], Service support ,
[2017-03-17 09:26] LABS: Allen Test POS; Base Excess -5 mmol/L (-2 to +2); Bicarbonate 21.3 mmol/L (22-26); Blood Gas Specimen Type ART; O2 Delivery Device NRB Mask; PO2 43 mmHG (75-100); SITE L Radial; SO2 74 % (95-99); Time Given 930; Total Carbon Dioxide 23 mmol/L; pH 7.31 (7.35-7.45)
[2017-03-17] MEDS: Furosemide 40 MG/4 ML Vial IV (09:29)
[2017-03-17] MEDS: 0.9% NaCl Peripheral Flush Adult/Peds IV (09:29)
--- NOTE | 2017-03-17 10:54 | CASEMGMT ---
After rounds this am SW faxed updates to [facility] and let them know patient may not be ready for d/c until Wednesday. SW to follow for return to [facility]. Ebonie CANDELARIA MSW
--- NOTE | 2017-03-17 11:50 | PCM.PN.BLA ---
Progress Note ENT progress note,03/17/17: No further bleeding noted. Packing secure. Patient restrained and sedated with his psychiatric medications. This is now 2 days post placement of right sided nasal packing. Given the difficulties with his hematologic abnormalities it would be bear to leave this packing in place for minimum of 3 days, maximum of 5 days, from date of placement (03/15/17). Mike Strickland M.D.
[2017-03-17 12:05] LABS: Pathologist Review Reviewed
--- NOTE | 2017-03-17 14:08 | PCM.PROGNOTE ---
Patient Problems: Active and Suspected Problems Epistaxis (Acute) Nasal bone fractures (Acute) Closed head injury (Acute) Subjective: Called to see patient secondary to significant change in mental status. Patient was noted to be severely hypoxic this morning and has become less responsive. Patient currently on a nonrebreather to maintain saturations. Patient is not interactive at this time and is unable to provide any history. - Physical Exam General: Lethargic, - - No accessory muscle use noted. Bruising appears stable and Rhino Rocket is in place. HEENT: Normocephalic, - - Pupils equal round and reactive to light. Doll's eyes negative. Oral: Moist Mucosa, No Gingival or Mucosal Lesions/ Ulcerations Neck: Supple, No JVD, No Nodes, Trachea Midline Lungs: No rhonchi, No wheeze, Diminished, Rales, - - Symmetric expansion. No dullness to percussion. Cardiovascular: Regular rate, Regular Rhythm, Normal S1, Normal S2, No murmurs, No rub noted, No Gallop Abdomen: Bowel Sounds Present, Soft, Non Tender, Non-Distended Extremities: No clubbing, No cyanosis, No edema, Capillary Refill Less than 3 Seconds Skin: No rashes, No breakdown Musculoskeletal: No Tenderness to Palpation of Joints or Extremities Lymphatic: No Cervical, Supraclavicular, or Inguinal Adenopathy Neurological: - - Patient is less responsive at this time. Patient does localize to stimulus and has intermittent spontaneous movements of extremities. No signs of 3rd nerve palsy appreciated Psych/Mental Status: Flat Affect Vital Signs Temp Pulse Resp BP Pulse Ox 36.8 C 88 20 H 105/53 L 85 03/17/17 12:05 03/17/17 12:16 03/17/17 12:05 03/17/17 12:05 03/17/17 08:42 Oxygen Flow Rate 8 Oxygen Delivery Method Non-Rebreather Weight: 71.5 kg Intake and Output for Last 24 Hours 03/15/17 03/16/17 03/17/17 23:59 23:59 23:59 Intake Total 2862 / 2862 2189.3 / 2189.3 1948 Output Total 3000 / 3000 825 / 825 Balance -138 / -138 1364.3 / 1364.3 1948 Laboratory Tests Past 24 Hrs 03/15/17 03/15/17 03/17/17 05:40 07:20 05:10 WBC 14.6 H RBC 3.31 L Hgb 10.1 L Hct 30.3 L MCV 91.5 MCH 30.5 MCHC 33.3 RDW 16.6 H RDW Differential 55.2 H Plt Count 143 L MPV 12.0 Immature Gran % (Auto) 1.200 H Neut % (Auto) 75.2 H Lymph % (Auto) 13.[address] [place] % (Auto) 10.0 Eos % (Auto) 0.3 Baso % (Auto) 0.3 Absolute Neuts (auto) 11.0 H Absolute Lymphs (auto) 1.90 Total Counted Not Reportable Nucleated RBC % 1.7 Diff Path Review Reviewed Reviewed Absolute Retic 0.24 PT INR Specimen Type Sample Site pH Bicarbonate Actual POC Total CO2 Base Excess O2 Saturation ABG pCO2 ABG pO2 Albino Test O2 Delivery Device Liter Flow Blood Gas Notified Whom Blood Gas Notified Time Sodium Potassium Chloride Carbon Dioxide Anion Gap BUN Creatinine Estim Creat Clear Calc Est GFR (MDRD) Af Amer Est GFR (MDRD) Non-Af BUN/Creatinine Ratio Glucose Calcium Crossmatch See Detail 03/17/17 03/17/17 03/17/17 05:10 05:10 09:20 WBC RBC Hgb Hct MCV MCH MCHC RDW RDW Differential Plt Count MPV Immature Gran % (Auto) Neut % (Auto) Lymph % (Auto) [place] % (Auto) Eos % (Auto) Baso % (Auto) Absolute Neuts (auto) Absolute Lymphs (auto) Total Counted Nucleated RBC % Diff Path Review Absolute Retic PT 15.3 H INR 1.3 Specimen Type ART Sample Site L Radial pH 7.31 L Bicarbonate Actual 21.3 L POC Total CO2 23 Base Excess -5 L O2 Saturation 74 L ABG pCO2 42.0 ABG pO2 43 L [place] Test POS O2 Delivery Device NRB Mask Liter Flow 15.0 Blood Gas Notified Whom [facility] Blood Gas Notified Time 930 Sodium 148 H Potassium 3.8 Chloride 116 H Carbon Dioxide 21.0 Anion Gap 11 BUN 39 H Creatinine 1.63 H Estim Creat Clear Calc 42.55 Est GFR (MDRD) Af Amer 54 L Est GFR (MDRD) Non-Af 45 L BUN/Creatinine Ratio 23.9 H Glucose 148 H Calcium 8.2 L Crossmatch Clinical Impression(s) from Imaging Studies Chest X-Ray 02/02/18 14:31 IMPRESSION: Progressive right upper lobe and right perihilar infiltration and left lower lobe infiltrate. Follow-up is recommended. Electronically Signed: Braydon Serra MD at 15:17 EST Tel [phone], Service support , Elbow X-Ray 03/12/17 14:42 IMPRESSION: Irregularity of the olecranon of the proximal ulna with soft tissue calcifications and irregularity of the cortex. This may represent a chronic osteomyelitis. Overlying soft tissue swelling. Clinical correlation is recommended. There is no evidence of joint effusion. No fracture is seen. Electronically Signed: Braydon Serra MD at 15:16 EST Tel [phone], Service support , Brain CT 03/12/17 16:13 IMPRESSION: Comminuted nasal bone and nasal septal fractures associated with opacification of the nasal cavities and nasal soft tissue swelling. Small air-fluid levels within the maxillary and sphenoid sinuses may be secondary to history of sinusitis however this may be related to recent trauma, consider dedicated maxillofacial CT for further evaluation. Bilateral periorbital hematomas. Electronically Signed: Kayla Rodriguez MD at 17:22 EST Tel , Service support , Facial/Sinus 03/12/17 19:04 IMPRESSION: Diffuse soft tissue swelling overlying the nose. Impacted nasal bone fracture. Fracture of the nasal septum. Electronically Signed: Blaze Rodriguez MD at 20:33 EST , Service support , Chest X-Ray 03/15/17 06:43 IMPRESSION: Increasing bilateral pulmonary infiltrates Electronically Signed: Esdras Crowe MD, FACR at 7:34 EST , Service support , Chest X-Ray 03/17/17 09:24 IMPRESSION: Since prior study, there is a progression of the bilateral airspace disease worse in the right hemithorax. Electronically Signed: Braydon Serra MD at 10:40 EST Tel [phone], Service support , Assessment/Plan Active and Suspected Problems Epistaxis (Acute) Nasal bone fractures (Acute) Closed head injury (Acute) RECOMMENDATIONS: 1. Consider CT of the head if CODE STATUS changed 2. Rhino Rocket management per ENT 3. Reinitiation of baseline antipsychotics 4. Sinew nonrebreather while goals of therapy are addressed 5. No transfer to intensive care unit at this time IMPRESSIONS: 1. Acute respiratory insufficiency secondary to epistaxis secondary to closed head injury/nasal bone fracture/reported COPD Chest x-ray today shows significant increase in infiltrates and patient has developed hypoxic respiratory failure. Doubt patient has a diffuse alveolar hemorrhage, but mucous plugging or fluid overload from blood transfusions would be a consideration. Patient has a reported DNR Comfort Care only designation in his chart. If this is true, it is likely most appropriate to contact hospice. If this is reversed, obtaining a CT scan of the head and chest without contrast would be appropriate. This would allow for evaluation of possible intracranial complications and for evaluation of pattern for aspiration. Given increase in creatinine and pulmonary infiltrates, pulmonary renal syndromes would be a consideration. If the pattern is consistent, initiation of high-dose steroids may be helpful if aggressive measures are pursued. 2. Significant coagulopathy/thrombocytopenia/acute blood loss anemia Unclear etiology. Liver function tests are within normal limits except for a depressed albumin at 2.5. INR was elevated. This could be consistent with cirrhosis. Normal fibrinogen makes consumptive coagulopathy unlikely. Repeated INRs have been within normal range. 3. Acute kidney injury Clinical suspicion for dehydration with prerenal etiology secondary to decreased p.o. intake. Continue slow rehydration and volume resuscitation with blood products. Creatinine is stable. 4. Hypothyroidism/dementia/debility/paranoid schizophrenia/frontotemporal Dementia Complicates care, management, recovery and prognosis. Code Visit Inpatient E&M: 17603 Subs Hosp L3
--- NOTE | 2017-03-17 14:21 | PN_ITS ---
Patient Problems: Active and Suspected Problems Epistaxis (Acute) Nasal bone fractures (Acute) Closed head injury (Acute) Subjective: Called to see patient secondary to significant change in mental status. Patient was noted to be severely hypoxic this morning and has become less responsive. Patient currently on a nonrebreather to maintain saturations. Patient is not interactive at this time and is unable to provide any history. - Physical Exam General: Lethargic, - - No accessory muscle use noted. Bruising appears stable and Rhino Rocket is in place. HEENT: Normocephalic, - - Pupils equal round and reactive to light. Doll's eyes negative. Oral: Moist Mucosa, No Gingival or Mucosal Lesions/ Ulcerations Neck: Supple, No JVD, No Nodes, Trachea Midline Lungs: No rhonchi, No wheeze, Diminished, Rales, - - Symmetric expansion. No dullness to percussion. Cardiovascular: Regular rate, Regular Rhythm, Normal S1, Normal S2, No murmurs, No rub noted, No Gallop Abdomen: Bowel Sounds Present, Soft, Non Tender, Non-Distended Extremities: No clubbing, No cyanosis, No edema, Capillary Refill Less than 3 Seconds Skin: No rashes, No breakdown Musculoskeletal: No Tenderness to Palpation of Joints or Extremities Lymphatic: No Cervical, Supraclavicular, or Inguinal Adenopathy Neurological: - - Patient is less responsive at this time. Patient does localize to stimulus and has intermittent spontaneous movements of extremities. No signs of 3rd nerve palsy appreciated Psych/Mental Status: Flat Affect Vital Signs Temp Pulse Resp BP Pulse Ox 36.8 C 88 20 H 105/53 L 85 03/17/17 12:05 03/17/17 12:16 03/17/17 12:05 03/17/17 12:05 03/17/17 08:42 Oxygen Flow Rate 8 Oxygen Delivery Method Non-Rebreather Weight: 71.5 kg Intake and Output for Last 24 Hours 03/15/17 03/16/17 03/17/17 23:59 23:59 23:59 Intake Total 2862 / 2862 2189.3 / 2189.3 1948 Output Total 3000 / 3000 825 / 825 Balance -138 / -138 1364.3 / 1364.3 1948 Laboratory Tests Past 24 Hrs 03/15/17 03/15/17 03/17/17 05:40 07:20 05:10 WBC 14.6 H RBC 3.31 L Hgb 10.1 L Hct 30.3 L MCV 91.5 MCH 30.5 MCHC 33.3 RDW 16.6 H RDW Differential 55.2 H Plt Count 143 L MPV 12.0 Immature Gran % (Auto) 1.200 H Neut % (Auto) 75.2 H Lymph % (Auto) 13.0 L [place] % (Auto) 10.0 Eos % (Auto) 0.3 Baso % (Auto) 0.3 Absolute Neuts (auto) 11.0 H Absolute Lymphs (auto) 1.90 Total Counted Not Reportable Nucleated RBC % 1.7 Diff Path Review Reviewed Reviewed Absolute Retic 0.24 PT INR Specimen Type Sample Site pH Bicarbonate Actual POC Total CO2 Base Excess O2 Saturation ABG pCO2 ABG pO2 Albino Test O2 Delivery Device Liter Flow Blood Gas Notified Whom Blood Gas Notified Time Sodium Potassium Chloride Carbon Dioxide Anion Gap BUN Creatinine Estim Creat Clear Calc Est GFR (MDRD) Af Amer Est GFR (MDRD) Non-Af BUN/Creatinine Ratio Glucose Calcium Crossmatch See Detail 03/17/17 03/17/17 03/17/17 05:10 05:10 09:20 WBC RBC Hgb Hct MCV MCH MCHC RDW RDW Differential Plt Count MPV Immature Gran % (Auto) Neut % (Auto) Lymph % (Auto) [place] % (Auto) Eos % (Auto) Baso % (Auto) Absolute Neuts (auto) Absolute Lymphs (auto) Total Counted Nucleated RBC % Diff Path Review Absolute Retic PT 15.3 H INR 1.3 Specimen Type ART Sample Site L Radial pH 7.31 L Bicarbonate Actual 21.3 L POC Total CO2 23 Base Excess -5 L O2 Saturation 74 L ABG pCO2 42.0 ABG pO2 43 L [place] Test POS O2 Delivery Device NRB Mask Liter Flow 15.0 Blood Gas Notified Whom [facility] Blood Gas Notified Time 930 Sodium 148 H Potassium 3.8 Chloride 116 H Carbon Dioxide 21.0 Anion Gap 11 BUN 39 H Creatinine 1.63 H Estim Creat Clear Calc 42.55 Est GFR (MDRD) Af Amer 54 L Est GFR (MDRD) Non-Af 45 L BUN/Creatinine Ratio 23.9 H Glucose 148 H Calcium 8.2 L Crossmatch Clinical Impression(s) from Imaging Studies Chest X-Ray 02/02/18 14:31 IMPRESSION: Progressive right upper lobe and right perihilar infiltration and left lower lobe infiltrate. Follow-up is recommended. Electronically Signed: Braydon Serra MD at 15:17 EST Tel [phone], Service support , Elbow X-Ray 03/12/17 14:42 IMPRESSION: Irregularity of the olecranon of the proximal ulna with soft tissue calcifications and irregularity of the cortex. This may represent a chronic osteomyelitis. Overlying soft tissue swelling. Clinical correlation is recommended. There is no evidence of joint effusion. No fracture is seen. Electronically Signed: Braydon Serra MD at 15:16 EST Tel [phone], Service support , Brain CT 03/12/17 16:13 IMPRESSION: Comminuted nasal bone and nasal septal fractures associated with opacification of the nasal cavities and nasal soft tissue swelling. Small air-fluid levels within the maxillary and sphenoid sinuses may be secondary to history of sinusitis however this may be related to recent trauma, consider dedicated maxillofacial CT for further evaluation. Bilateral periorbital hematomas. Electronically Signed: Kayla Rodriguez MD at 17:22 EST Tel , Service support , Facial/Sinus 03/12/17 19:04 IMPRESSION: Diffuse soft tissue swelling overlying the nose. Impacted nasal bone fracture. Fracture of the nasal septum. Electronically Signed: Blaze Rodriguez MD at 20:33 EST , Service support , Chest X-Ray 03/15/17 06:43 IMPRESSION: Increasing bilateral pulmonary infiltrates Electronically Signed: Esdras Crowe MD, FACR at 7:34 EST , Service support , Chest X-Ray 03/17/17 09:24 IMPRESSION: Since prior study, there is a progression of the bilateral airspace disease worse in the right hemithorax. Electronically Signed: Braydon Serra MD at 10:40 EST Tel [phone], Service support , Assessment/Plan Active and Suspected Problems Epistaxis (Acute) Nasal bone fractures (Acute) Closed head injury (Acute) RECOMMENDATIONS: 1. Consider CT of the head if CODE STATUS changed 2. Rhino Rocket management per ENT 3. Reinitiation of baseline antipsychotics 4. Sinew nonrebreather while goals of therapy are addressed 5. No transfer to intensive care unit at this time IMPRESSIONS: 1. Acute respiratory insufficiency secondary to epistaxis secondary to closed head injury/nasal bone fracture/reported COPD Chest x-ray today shows significant increase in infiltrates and patient has developed hypoxic respiratory failure. Doubt patient has a diffuse alveolar hemorrhage, but mucous plugging or fluid overload from blood transfusions would be a consideration. Patient has a reported DNR Comfort Care only designation in his chart. If this is true, it is likely most appropriate to contact hospice. If this is reversed, obtaining a CT scan of the head and chest without contrast would be appropriate. This would allow for evaluation of possible intracranial complications and for evaluation of pattern for aspiration. Given increase in creatinine and pulmonary infiltrates, pulmonary renal syndromes would be a consideration. If the pattern is consistent, initiation of high-dose steroids may be helpful if aggressive measures are pursued. 2. Significant coagulopathy/thrombocytopenia/acute blood loss anemia Unclear etiology. Liver function tests are within normal limits except for a depressed albumin at 2.5. INR was elevated. This could be consistent with cirrhosis. Normal fibrinogen makes consumptive coagulopathy unlikely. Repeated INRs have been within normal range. 3. Acute kidney injury Clinical suspicion for dehydration with prerenal etiology secondary to decreased p.o. intake. Continue slow rehydration and volume resuscitation with blood products. Creatinine is stable. 4. Hypothyroidism/dementia/debility/paranoid schizophrenia/frontotemporal Dementia Complicates care, management, recovery and prognosis. Code Visit Inpatient E&M: 96253 Subs Hosp L3
--- NOTE | 2017-03-17 14:52 | NURSING ---
CALLED D.O.Kiana AT [facility] SHE HAS SAME NUMBER HOSPITAL HAS LISTED FOR LEGAL GUARDIAN. SHE WILL ALSO TRY TO GET HOLD OF HER. [facility] PATIENT HAS BEEN INSTITUTIONALIZED FOR OVER 30 YEARS DUE TO HIS MENTAL ILLNESS. [facility] IS [facility] AND WOULD SUGGEST HOSPICE
--- NOTE | 2017-03-17 14:53 | CT_ITS ---
STUDY: CT BRAIN WITHOUT CONTRAST REASON FOR EXAM: Male, 66 years old. Altered mental status. Recent trauma. RADIATION DOSAGE (If Supplied By Facility): CTDIvol = ( 44.99 ) mGy, DLP = ( 812.98 ) mGycm TECHNIQUE: Transaxial CT imaging of the brain was performed without administration of intravenous contrast material. Individualized dose optimization techniques were used for this CT. COMPARISON: Comparison is made with prior examination dated March 12, 2017. FINDINGS: Normal soft tissue structures. Normal calvarium. Once again, stable comminuted fractures nasal bones as well as the nasal septum. There is mild cerebral atrophy with widening of the extra-axial spaces and ventricular dilatation. Normal white matter tracts of the cerebral hemispheres. Normal basal ganglia and thalami. Normal brainstem. Normal cerebellum. There is no intracranial hemorrhage. There are no findings of an acute ischemic infarction. At the level in the right sphenoid sinus. Mucosal thickening of the right maxillary sinus and partial opacification of the right ethmoid sinus. CT/Brain/Head without Contrast IMPRESSION: Known comminuted nasal fracture. Air-fluid level in the right sphenoid sinus with opacification of the right ethmoid sinus and thickening of the right maxillary sinus. Electronically Signed: Braydon Serra MD at 15:35 EST Tel [phone], Service support ,
--- NOTE | 2017-03-17 18:04 | NURSING ---
spoke with Dr. Strickland aware of possible dc and transfer to [facility] as a hospice patient
[2017-03-17] MEDS: clonazePAM 1 MG Tablet 2 MG PO (23:03)
[2017-03-18] VITALS (21 sets, daily range): BP systolic 82–134; BP diastolic 50–74; PULSE 72–123; RESP 16–28; TEMP 36.4–37.8; O2SAT 90–100
[2017-03-18] MEDS: Ipratropium/Albuterol Sulfate 3 ML AMPUL.NEB INHALATION (00:09)
[2017-03-18] MEDS: Levothyroxine 100 MCG Tablet 200 MCG PO (05:34)
[2017-03-18] MEDS: QUEtiapine 100 MG Tablet 200 MG PO ×3 (05:35→21:04)
[2017-03-18 06:04] LABS: Absolute Lymphocyte Count 1.92 X10^3/ul (0.83-4.51); Absolute Neutrophil Count 13.8 X10^3/uL (2.0-7.7); Basophil# 0.05 X10^3/uL; Basophil% 0.3 % (0-1); Hematocrit 30.1 % (40-54); Hemoglobin 9.7 g/dl (13.0-16.5); Lymphocyte # 1.92 X10^3/ul (4.0); Lymphocyte % 10.5 % (19-41); Mean Corp Hgb Conc 32.2 g/gl (32-36); Mean Corpuscular Hgb 30.9 pg (27.0-32.0); Mean Corpuscular Volume 95.9 fL (80-94); Mean Platelet Vol. 12.4 fl (6.2-12.0); Monocyte# 2.09 X10^3/uL; Monocyte% 11.4 % (0-10); Neutrophil % 75.4 % (47-70); Platelet Count 198 K/mm3 (150-450); RBC Distribution Width CV 16.8 % (11.6-14.6); RBC Distribution Width SD 58.2 fl (35.1-43.9); Red Blood Count 3.14 M/mm3 (4.6-6.2); White Blood Count 18.3 K/mm3 (4.4-11.0)
[2017-03-18 06:07] LABS: Differential Indicated SCAN CRITERIA MET; POSITIVE COUNT YES; POSITIVE DIFFERENTIAL YES; POSITIVE MORPHOLOGY YES
[2017-03-18 06:18] LABS: Anion Gap 8 (5-15); BUN 42 mg/dL (7-18); BUN/Creat Ratio 26.9 RATIO (10-20); Calcium,Total 8.3 mg/dL (8.5-10.1); Chloride 115 mmol/L (98-107); Creatinine, Serum 1.56 mg/dL (0.70-1.30); EST Glomerular Filtration Rate 47 mL/min (>60); Est Glom Filt Rate - Afr Amer 57 mL/min (>60); Estimated Creatinine Clearance 44.46 ml/min; Glucose 83 mg/dL (74-106); Potassium 4.1 mmol/L (3.5-5.1); Sodium Level 151 mmol/L (136-145)
[2017-03-18 06:33] LABS: Absolute Nucleated RBC Count 0.43 10^3/uL (0-5); Differential Comment SCANNED; NRBC Flagged by Analyzer 2.3 % (0-5)
--- NOTE | 2017-03-18 07:30 | PCM.PROGNOTE ---
Patient Problems: Active and Suspected Problems Epistaxis (Acute) Nasal bone fractures (Acute) Closed head injury (Acute) Subjective: Chief complaint: Follow-up after admission for fall, impacted nasal bone fracture/fracture of the nasal septum, bilateral periorbital hematoma, suspected aspiration pneumonia, acute hypoxic respiratory insufficiency, acute blood loss anemia, acute kidney injury and coagulopathy. Patient seen and examined. No acute events overnight. This morning, he is more awake, slightly agitated and restless. He remained incoherent, not able to provide any good history or able to communicate properly. He said no when I asked him about chest pain or abdominal pain. He is afebrile, heart rate stable, blood pressure stable, pulse ox is 98% on nonrebreather mask. - Physical Exam General: Alert, Cooperative, Disoriented, - - Mildly short of breath. HEENT: PERRLA, EOMI, - - Traumatic, bilateral periorbital hematomas. Oral: Moist Mucosa, No Gingival or Mucosal Lesions/ Ulcerations Neck: Supple, No JVD, Negative Carotid Bruits, Trachea Midline, Thyroid Normal Size and Texture Lungs: Clear to auscultation, No wheeze, No rales, Diminished, Rhonchi, Short of Breath Cardiovascular: Regular rate, Regular Rhythm, Normal S1, Normal S2, PMI Normal Abdomen: Bowel Sounds Present, Soft, Non Tender, Non-Distended, No Hepato-splenomegaly Extremities: No clubbing, No cyanosis, No edema Skin: No rashes, No breakdown Lymphatic: No Cervical, Supraclavicular, or Inguinal Adenopathy Neurological: Cranial nerves II-XII grossly intact, Neuro grossly intact Psych/Mental Status: Anxious, Restless Vital Signs Temp Pulse Resp BP Pulse Ox 98.9 F 106 H 24 H 117/61 98 03/18/17 06:45 03/18/17 06:45 03/18/17 06:45 03/18/17 06:45 03/18/17 06:45 Oxygen Flow Rate 15 Oxygen Delivery Method Non-Rebreather Weight: 157 lb 10.088 oz Intake and Output for Last 24 Hours 03/16/17 03/17/17 03/18/17 23:59 23:59 23:59 Intake Total 2189.3 / 2189.3 1998 75 / 75 Output Total 825 / 825 Balance 1364.3 / 1364.3 1998 75 / 75 Laboratory Tests Past 24 Hrs 03/17/17 03/17/17 03/18/17 05:10 09:20 05:05 WBC 18.3 H RBC 3.14 L Hgb 9.7 L Hct 30.1 L MCV 95.9 H MCH 30.9 MCHC 32.2 RDW 16.8 H RDW Differential 58.2 H Plt Count 198 MPV 12.4 H Immature Gran % (Auto) 2.400 H Neut % (Auto) 75.4 H Lymph % (Auto) 10.5 L [place] % (Auto) 11.4 H Eos % (Auto) 0.0 Baso % (Auto) 0.3 Absolute Neuts (auto) 13.8 H Absolute Lymphs (auto) 1.92 Total Counted Not Reportable Nucleated RBC % 2.3 Differential Comment SCANNED Diff Path Review Reviewed June foll Absolute Retic 0.43 Specimen Type ART Sample Site L Radial pH 7.31 L Bicarbonate Actual 21.3 L POC Total CO2 23 Base Excess -5 L O2 Saturation 74 L ABG pCO2 42.0 ABG pO2 43 L Albino Test POS O2 Delivery Device NRB Mask Liter Flow 15.0 Blood Gas Notified Whom HOSP Blood Gas Notified Time 930 Sodium Potassium Chloride Carbon Dioxide Anion Gap BUN Creatinine Estim Creat Clear Calc Est GFR (MDRD) Af Amer Est GFR (MDRD) Non-Af BUN/Creatinine Ratio Glucose Calcium 03/18/17 05:05 WBC RBC Hgb Hct MCV MCH MCHC RDW RDW Differential Plt Count MPV Immature Gran % (Auto) Neut % (Auto) Lymph % (Auto) [place] % (Auto) Eos % (Auto) Baso % (Auto) Absolute Neuts (auto) Absolute Lymphs (auto) Total Counted Nucleated RBC % Differential Comment Diff Path Review Absolute Retic Specimen Type Sample Site pH Bicarbonate Actual POC Total CO2 Base Excess O2 Saturation ABG pCO2 ABG pO2 Albino Test O2 Delivery Device Liter Flow Blood Gas Notified Whom Blood Gas Notified Time Sodium 151 H Potassium 4.1 Chloride 115 H Carbon Dioxide 28.0 Anion Gap 8 BUN 42 H Creatinine 1.56 H Estim Creat Clear Calc 44.46 Est GFR (MDRD) Af Amer 57 L Est GFR (MDRD) Non-Af 47 L BUN/Creatinine Ratio 26.9 H Glucose 83 Calcium 8.3 L Assessment/Plan Active and Suspected Problems Epistaxis (Acute) Nasal bone fractures (Acute) Closed head injury (Acute) This is a 66 years old male patient admitted because of fall complicated by a closed head injury, impacted nasal bone fracture/fracture of the nasal septum, bilateral periorbital hematomas, suspected aspiration pneumonia, acute blood loss anemia as well as acute kidney injury., He was found to have coagulopathy with highly elevated INR, PT and PTT with unclear etiology. #1 fall/closed head injury/bilateral periorbital hematomas: Remained stable, no focal deficit. Today, he is more calm and rested, less agitated. Repeat CT scan brain done yesterday and revealed stable fractures, no acute intracranial hemorrhage, no acute infarction. After discussion with the patient's legal guardian and his clinical situation in terms of deterioration of his respiratory status, decision was made to consult hospice and palliative care and we are awaiting the recommendation. #2 impacted nasal bone fracture/fracture of the nasal septum/epistaxis: Status post packing of the right nostril ?2. X-ray of the nasal bone as well as CT scan brain reviewed. ENT on the case and following. At this time, no evidence of active bleeding from the right nostril. #3 coagulopathy: His INR, PT and PTT was highly elevated yesterday. He received 2 units of fresh frozen plasma and vitamin K 10 mg ?1. INR was 11.8 yesterday, came down to 1.3 yesterday. Fibrinogen was normal. There was no reported patient has been on any anticoagulants and it is not clear why this patient has elevated INR. His LFT is normal. #4 suspected aspiration pneumonia: Started on oral Augmentin, IV Zosyn discontinued. Repeat chest x-ray from yesterday revealed increasing bilateral pulmonary infiltrate which could be due to aspiration of blood to his lungs. Pneumococcal antigen is negative. Blood cultures showed no growth in 48 hours. Pulmonary consulted. Plan: Continue same treatment. #5 acute hypoxic respiratory insufficiency: Secondary to aspiration pneumonia, aspiration of the blood as well as nasal blockage by the nasal packing. Patient has been on nonrebreather mask. Patient is DNR CC. We cannot use the BiPAP on his face because of the nasal fractures and epistaxis. Plan to continue current management with nonrebreather mask, bronchodilators, awaiting hospice recommendations. #5 acute on chronic blood loss anemia: Secondary to epistaxis. Today's hemoglobin came down to 9.7 g/dL. he received a total of 4 units of packed RBCs. He does have chronic anemia with baseline hemoglobin around 9-11 g/dL. #6 acute kidney injury: Probably prerenal because of dehydration. Baseline creatinine is normal. Admission creatinine was 1.88, today's creatinine is 0.56, remained the same compared to yesterday. His sodium was 151, he would be started on half saline with D5. #7 thrombocytopenia: Chronic, unclear etiology. Today's platelet count is 198,000, back to normal. #8 hypothyroidism: Continue levothyroxine. #9 dementia: Supportive care. #10 COPD: Stable, is on DuoNeb every 4 hours. #11 DVT prophylaxis: SCDs. This note was generated with [employer] dictation software. It may contain incorrect words, spelling, and punctuation that were not noted in checking the note before signing.
--- NOTE | 2017-03-18 07:39 | PN_ITS ---
Patient Problems: Active and Suspected Problems Epistaxis (Acute) Nasal bone fractures (Acute) Closed head injury (Acute) Subjective: Chief complaint: Follow-up after admission for fall, impacted nasal bone fracture/fracture of the nasal septum, bilateral periorbital hematoma, suspected aspiration pneumonia, acute hypoxic respiratory insufficiency, acute blood loss anemia, acute kidney injury and coagulopathy. Patient seen and examined. No acute events overnight. This morning, he is more awake, slightly agitated and restless. He remained incoherent, not able to provide any good history or able to communicate properly. He said no when I asked him about chest pain or abdominal pain. He is afebrile, heart rate stable , blood pressure stable, pulse ox is 98% on nonrebreather mask. - Physical Exam General: Alert, Cooperative, Disoriented, - - Mildly short of breath. HEENT: PERRLA, EOMI, - - Traumatic, bilateral periorbital hematomas. Oral: Moist Mucosa, No Gingival or Mucosal Lesions/ Ulcerations Neck: Supple, No JVD, Negative Carotid Bruits, Trachea Midline, Thyroid Normal Size and Texture Lungs: Clear to auscultation, No wheeze, No rales, Diminished, Rhonchi, Short of Breath Cardiovascular: Regular rate, Regular Rhythm, Normal S1, Normal S2, PMI Normal Abdomen: Bowel Sounds Present, Soft, Non Tender, Non-Distended, No Hepato- splenomegaly Extremities: No clubbing, No cyanosis, No edema Skin: No rashes, No breakdown Lymphatic: No Cervical, Supraclavicular, or Inguinal Adenopathy Neurological: Cranial nerves II-XII grossly intact, Neuro grossly intact Psych/Mental Status: Anxious, Restless Vital Signs Temp Pulse Resp BP Pulse Ox 98.9 F 106 H 24 H 117/61 98 03/18/17 06:45 03/18/17 06:45 03/18/17 06:45 03/18/17 06:45 03/18/17 06:45 Oxygen Flow Rate 15 Oxygen Delivery Method Non-Rebreather Weight: 157 lb 10.088 oz Intake and Output for Last 24 Hours 03/16/17 03/17/17 03/18/17 23:59 23:59 23:59 Intake Total 2189.3 / 2189.3 1998 75 / 75 Output Total 825 / 825 Balance 1364.3 / 1364.3 1998 75 / 75 Laboratory Tests Past 24 Hrs 03/17/17 03/17/17 03/18/17 05:10 09:20 05:05 WBC 18.3 H RBC 3.14 L Hgb 9.7 L Hct 30.1 L MCV 95.9 H MCH 30.9 MCHC 32.2 RDW 16.8 H RDW Differential 58.2 H Plt Count 198 MPV 12.4 H Immature Gran % (Auto) 2.400 H Neut % (Auto) 75.4 H Lymph % (Auto) 10.5 L [place] % (Auto) 11.4 H Eos % (Auto) 0.0 Baso % (Auto) 0.3 Absolute Neuts (auto) 13.8 H Absolute Lymphs (auto) 1.92 Total Counted Not Reportable Nucleated RBC % 2.3 Differential Comment SCANNED Diff Path Review Reviewed June foll Absolute Retic 0.43 Specimen Type ART Sample Site L Radial pH 7.31 L Bicarbonate Actual 21.3 L POC Total CO2 23 Base Excess -5 L O2 Saturation 74 L ABG pCO2 42.0 ABG pO2 43 L Albino Test POS O2 Delivery Device NRB Mask Liter Flow 15.0 Blood Gas Notified Whom HOSP Blood Gas Notified Time 930 Sodium Potassium Chloride Carbon Dioxide Anion Gap BUN Creatinine Estim Creat Clear Calc Est GFR (MDRD) Af Amer Est GFR (MDRD) Non-Af BUN/Creatinine Ratio Glucose Calcium 03/18/17 05:05 WBC RBC Hgb Hct MCV MCH MCHC RDW RDW Differential Plt Count MPV Immature Gran % (Auto) Neut % (Auto) Lymph % (Auto) [place] % (Auto) Eos % (Auto) Baso % (Auto) Absolute Neuts (auto) Absolute Lymphs (auto) Total Counted Nucleated RBC % Differential Comment Diff Path Review Absolute Retic Specimen Type Sample Site pH Bicarbonate Actual POC Total CO2 Base Excess O2 Saturation ABG pCO2 ABG pO2 Albino Test O2 Delivery Device Liter Flow Blood Gas Notified Whom Blood Gas Notified Time Sodium 151 H Potassium 4.1 Chloride 115 H Carbon Dioxide 28.0 Anion Gap 8 BUN 42 H Creatinine 1.56 H Estim Creat Clear Calc 44.46 Est GFR (MDRD) Af Amer 57 L Est GFR (MDRD) Non-Af 47 L BUN/Creatinine Ratio 26.9 H Glucose 83 Calcium 8.3 L Assessment/Plan Active and Suspected Problems Epistaxis (Acute) Nasal bone fractures (Acute) Closed head injury (Acute) This is a 66 years old male patient admitted because of fall complicated by a closed head injury, impacted nasal bone fracture/fracture of the nasal septum, bilateral periorbital hematomas, suspected aspiration pneumonia, acute blood loss anemia as well as acute kidney injury., He was found to have coagulopathy with highly elevated INR, PT and PTT with unclear etiology. #1 fall/closed head injury/bilateral periorbital hematomas: Remained stable, no focal deficit. Today, he is more calm and rested, less agitated. Repeat CT scan brain done yesterday and revealed stable fractures, no acute intracranial hemorrhage, no acute infarction. After discussion with the patient's legal guardian and his clinical situation in terms of deterioration of his respiratory status, decision was made to consult hospice and palliative care and we are awaiting the recommendation. #2 impacted nasal bone fracture/fracture of the nasal septum/epistaxis: Status post packing of the right nostril ?2. X-ray of the nasal bone as well as CT scan brain reviewed. ENT on the case and following. At this time, no evidence of active bleeding from the right nostril. #3 coagulopathy: His INR, PT and PTT was highly elevated yesterday. He received 2 units of fresh frozen plasma and vitamin K 10 mg ?1. INR was 11.8 yesterday, came down to 1.3 yesterday. Fibrinogen was normal. There was no reported patient has been on any anticoagulants and it is not clear why this patient has elevated INR. His LFT is normal. #4 suspected aspiration pneumonia: Started on oral Augmentin, IV Zosyn discontinued. Repeat chest x-ray from yesterday revealed increasing bilateral pulmonary infiltrate which could be due to aspiration of blood to his lungs. Pneumococcal antigen is negative. Blood cultures showed no growth in 48 hours. Pulmonary consulted. Plan: Continue same treatment. #5 acute hypoxic respiratory insufficiency: Secondary to aspiration pneumonia, aspiration of the blood as well as nasal blockage by the nasal packing. Patient has been on nonrebreather mask. Patient is DNR CC. We cannot use the BiPAP on his face because of the nasal fractures and epistaxis. Plan to continue current management with nonrebreather mask, bronchodilators, awaiting hospice recommendations. #5 acute on chronic blood loss anemia: Secondary to epistaxis. Today's hemoglobin came down to 9.7 g/dL. he received a total of 4 units of packed RBCs. He does have chronic anemia with baseline hemoglobin around 9-11 g/dL. #6 acute kidney injury: Probably prerenal because of dehydration. Baseline creatinine is normal. Admission creatinine was 1.88, today's creatinine is 0.56 , remained the same compared to yesterday. His sodium was 151, he would be started on half saline with D5. #7 thrombocytopenia: Chronic, unclear etiology. Today's platelet count is 198, 000, back to normal. #8 hypothyroidism: Continue levothyroxine. #9 dementia: Supportive care. #10 COPD: Stable, is on DuoNeb every 4 hours. #11 DVT prophylaxis: SCDs. This note was generated with [employer] dictation software. It may contain incorrect words, spelling, and punctuation that were not noted in checking the note before signing.
[2017-03-18] MEDS: Haloperidol Lactate 5 MG/ML Vial IV (07:49)
--- NOTE | 2017-03-18 09:46 | PCA ---
PT COUGHED A LOT WITH FLUIDS, TOLD RN AND STOPPED FEED.
[2017-03-18 09:47] LABS: Pathologist Review Reviewed
--- NOTE | 2017-03-18 09:52 | PCM.PROGNOTE ---
Patient Problems: Active and Suspected Problems Epistaxis (Acute) Nasal bone fractures (Acute) Closed head injury (Acute) Subjective: Patient much more interactive today compared to yesterday. Moving all extremities. No bleeding has been noted. Patient is denying pain at this time. Objective: CT scan of the head was personally reviewed. This shows no significant changes from previous. No intracranial pathology was appreciated. - Physical Exam General: Alert, No apparent distress, Confused, Disoriented, Non-Cooperative HEENT: PERRLA, EOMI, - - Rhino Rocket is still in place. Oral: Moist Mucosa, No Gingival or Mucosal Lesions/ Ulcerations Neck: Supple, No JVD, No Nodes, Trachea Midline Lungs: No rhonchi, No wheeze, Diminished, Rales, - - Check expansion. No dullness to percussion. Cardiovascular: Regular rate, Regular Rhythm, Normal S1, Normal S2, No murmurs, No rub noted, No Gallop Abdomen: Bowel Sounds Present, Soft, Non Tender, Non-Distended Extremities: No clubbing, No cyanosis, No edema, Capillary Refill Less than 3 Seconds Skin: - - No significant change compared to previous Musculoskeletal: No Tenderness to Palpation of Joints or Extremities, No Muscle Wasting Lymphatic: No Cervical, Supraclavicular, or Inguinal Adenopathy Neurological: Neuro grossly intact Psych/Mental Status: Agitated, Impulsive, Restless Vital Signs Temp Pulse Resp BP Pulse Ox 36.6 C 90 16 86/58 L 96 03/18/17 08:45 03/18/17 08:45 03/18/17 08:45 03/18/17 08:45 03/18/17 08:45 Oxygen Flow Rate 15 Oxygen Delivery Method Non-Rebreather Weight: 71.5 kg Intake and Output for Last 24 Hours 03/16/17 03/17/17 03/18/17 23:59 23:59 23:59 Intake Total 2189.3 / 2189.3 1998 Output Total 825 / 825 Balance 1364.3 / 1364.3 1998 Microbiology Past 72 Hours 03/17/17 16:45 Gram Stain - Final Wound - Elbow Laboratory Tests Past 24 Hrs 03/17/17 03/18/17 03/18/17 05:10 05:05 05:05 WBC 18.3 H RBC 3.14 L Hgb 9.7 L Hct 30.1 L MCV 95.9 H MCH 30.9 MCHC 32.2 RDW 16.8 H RDW Differential 58.2 H Plt Count 198 MPV 12.4 H Immature Gran % (Auto) 2.400 H Neut % (Auto) 75.4 H Lymph % (Auto) 10.5 L [place] % (Auto) 11.4 H Eos % (Auto) 0.0 Baso % (Auto) 0.3 Absolute Neuts (auto) 13.8 H Absolute Lymphs (auto) 1.92 Total Counted Not Reportable Nucleated RBC % 2.3 Differential Comment SCANNED Diff Path Review Reviewed Reviewed Absolute Retic 0.43 Sodium 151 H Potassium 4.1 Chloride 115 H Carbon Dioxide 28.0 Anion Gap 8 BUN 42 H Creatinine 1.56 H Estim Creat Clear Calc 44.46 Est GFR (MDRD) Af Amer 57 L Est GFR (MDRD) Non-Af 47 L BUN/Creatinine Ratio 26.9 H Glucose 83 Calcium 8.3 L Clinical Impression(s) from Imaging Studies Chest X-Ray 03/17/17 09:24 IMPRESSION: Since prior study, there is a progression of the bilateral airspace disease worse in the right hemithorax. Electronically Signed: Braydon Serra MD at 10:40 EST Tel [phone], Service support , Brain CT 03/17/17 14:53 IMPRESSION: Known comminuted nasal fracture. Air-fluid level in the right sphenoid sinus with opacification of the right ethmoid sinus and thickening of the right maxillary sinus. Electronically Signed: Braydon Serra MD at 15:35 EST Tel [phone], Service support , Assessment/Plan Active and Suspected Problems Epistaxis (Acute) Nasal bone fractures (Acute) Closed head injury (Acute) RECOMMENDATIONS: 1. Initiate D5W secondary to hypernatremia 2. Rhino Rocket management per ENT 3. Continue baseline antipsychotics 4. Consider weaning supplemental oxygen using Ventimask 5. No transfer to intensive care unit at this time IMPRESSIONS: 1. Acute respiratory insufficiency secondary to epistaxis secondary to closed head injury/nasal bone fracture/reported COPD Previous chest x-ray did show increase in infiltrates bilaterally. Patient appears to be recovered today. Unclear if there is an element of atelectasis secondary to decreased mental status yesterday. 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 This would likely lead patient into significant psychosis given underlying mental status. Patient reportedly is a comfort care. Need to clarify goals of therapy. Transitioning to Ventimask may allow for further titration of supplemental oxygen. 2. Significant coagulopathy/thrombocytopenia/acute blood loss anemia Unclear etiology. Liver function tests are within normal limits except for a depressed albumin at 2.5. INR was elevated. This could be consistent with cirrhosis. Normal fibrinogen makes consumptive coagulopathy unlikely. Repeated INRs have been within normal range. 3. Acute kidney injury Renal function is stable at this time. Patient does have hypernatremia and hyperchloremia. Patient does not have excessive urine output indicating diabetes insipidus. Continue slow rehydration and volume resuscitation. Creatinine is stable. 4. Hypothyroidism/dementia/debility/paranoid schizophrenia/frontotemporal Dementia Complicates care, management, recovery and prognosis. Code Visit Inpatient E&M: 00432 Subs Hosp L3
[2017-03-18] MEDS: Benztropine 2 MG Tablet 1 MG PO (10:54)
[2017-03-18] MEDS: ARIPiprazole 10 MG Tablet PO ×2 (10:54→21:05)
[2017-03-18] MEDS: Divalproex Sodium 125 MG SPRINKLE PO ×2 (10:55→21:05)
[2017-03-18] MEDS: Metoprolol(XL)Succ 50 MG Tablet PO (10:56)
[2017-03-18] MEDS: ChlorproMAZINE 25 MG Tablet PO ×2 (10:56→21:08)
[2017-03-18] MEDS: clonazePAM 1 MG Tablet 2 MG PO ×3 (10:58→21:15)
--- NOTE | 2017-03-18 11:32 | CASEMGMT ---
Addendum entered by Ebonie Dale 03/19/17 13:25: CELINA called [facility] and the ampoule inspector was not available so CELINA spoke with Magdalene. SW let her know patient's guardian is meeting with Hospice tomorrow at 8am. SW told her he will be d/c to them either on Hospice or under intermediate level of care. CELINA faxed updates to [facility]. Green sheet on chart. Ebonie QUILES Original Note: Hospice was consulted. They were able to reach the guardian who is in [place] and will not be able to meet with Hospice until Wednesday 8am. SW will notify [facility]. Ebonie CANDELARIA MSW
--- NOTE | 2017-03-18 14:44 | PCM.PN.BLA ---
Progress Note Reviewed status with Dr Wills, and will plan for nasal pack removal tomorrow 03/19/17. Mike Strickland M.D.
--- NOTE | 2017-03-18 18:24 | NURSING ---
Restraints removed at 1814. Sitter remains bedside.
[2017-03-19] VITALS (18 sets, daily range): BP systolic 88–141; BP diastolic 42–88; PULSE 59–101; RESP 16–22; TEMP 35.9–36.7; O2SAT 89–98
--- NOTE | 2017-03-19 05:05 | NURSING ---
Cleansed wound on R elbow with sterile NS. Minimal drainage noted on old dressing. Dressing changed. Covered with ABD pad and kerlix wrap. Pt. tolerated well.
[2017-03-19] MEDS: QUEtiapine 100 MG Tablet 200 MG PO ×3 (05:23→23:07)
[2017-03-19] MEDS: Levothyroxine 100 MCG Tablet 200 MCG PO (05:23)
[2017-03-19 05:54] LABS: Absolute Lymphocyte Count 1.49 X10^3/ul (0.83-4.51); Absolute Neutrophil Count 10.3 X10^3/uL (2.0-7.7); Basophil# 0.04 X10^3/uL; Basophil% 0.3 % (0-1); Eosinophil# 0.42 X10^3/uL; Hematocrit 29.4 % (40-54); Hemoglobin 9.6 g/dl (13.0-16.5); Lymphocyte # 1.49 X10^3/ul (4.0); Lymphocyte % 10.7 % (19-41); Mean Corp Hgb Conc 32.7 g/gl (32-36); Mean Corpuscular Hgb 31.4 pg (27.0-32.0); Mean Corpuscular Volume 96.1 fL (80-94); Mean Platelet Vol. 12.3 fl (6.2-12.0); Monocyte# 1.54 X10^3/uL; Neutrophil % 73.7 % (47-70); Platelet Count 202 K/mm3 (150-450); RBC Distribution Width CV 15.9 % (11.6-14.6); RBC Distribution Width SD 52.3 fl (35.1-43.9); Red Blood Count 3.06 M/mm3 (4.6-6.2)
[2017-03-19 05:55] LABS: Anion Gap 8 (5-15); BUN 32 mg/dL (7-18); BUN/Creat Ratio 27.1 RATIO (10-20); Calcium,Total 8.3 mg/dL (8.5-10.1); Chloride 111 mmol/L (98-107); Creatinine, Serum 1.18 mg/dL (0.70-1.30); EST Glomerular Filtration Rate 65 mL/min (>60); Est Glom Filt Rate - Afr Amer 79 mL/min (>60); Estimated Creatinine Clearance 58.77 ml/min; Glucose 113 mg/dL (74-106); Potassium 3.9 mmol/L (3.5-5.1); Sodium Level 148 mmol/L (136-145)
[2017-03-19 06:06] LABS: Differential Indicated SCAN CRITERIA MET; POSITIVE COUNT NO; POSITIVE DIFFERENTIAL YES; POSITIVE MORPHOLOGY NO
[2017-03-19 06:24] LABS: Atypical Lymphocyte 2+ %; Differential Comment SCANNED
--- NOTE | 2017-03-19 07:28 | PN_ITS ---
Patient Problems: Active and Suspected Problems Epistaxis (Acute) Nasal bone fractures (Acute) Closed head injury (Acute) Subjective: Patient did well overnight. Sitter reports patient is much more interactive. Saturations have been maintained at approximately 100% throughout the evening on nonrebreather mask. ENT is reportedly planning removal of Rhino Rocket later today. - Physical Exam General: - - Resting comfortably. No apparent distress. No accessory muscle use noted. HEENT: PERRLA, EOMI, - - No scleral icterus or injection noted. Oral: Moist Mucosa, No Gingival or Mucosal Lesions/ Ulcerations Neck: Supple, No JVD, No Nodes, Trachea Midline Lungs: No rhonchi, No wheeze, No rales, Diminished, - - Symmetric expansion. No dullness to percussion. Cardiovascular: Regular rate, Regular Rhythm, Normal S1, Normal S2, No murmurs, No rub noted, No Gallop Abdomen: Bowel Sounds Present, Soft, Non Tender, Non-Distended Extremities: No cyanosis, No edema, Capillary Refill Less than 3 Seconds, Clubbing Skin: - - No significant change compared to previous. Musculoskeletal: No Tenderness to Palpation of Joints or Extremities Lymphatic: No Cervical, Supraclavicular, or Inguinal Adenopathy Neurological: Neuro grossly intact, - - No significant change compared to previous Psych/Mental Status: Flat Affect Vital Signs Temp Pulse Resp BP Pulse Ox 36.6 C 80 20 H 101/59 L 94 03/19/17 05:07 03/19/17 05:07 03/19/17 05:07 03/19/17 05:07 03/19/17 05:07 Oxygen Flow Rate 15 Oxygen Delivery Method Non-Rebreather Weight: 71.5 kg Intake and Output for Last 24 Hours 03/17/17 03/18/17 03/19/17 23:59 23:59 23:59 Intake Total 1998 1665 / 1665 320 / 320 Output Total 250 / 250 475 / 475 Balance 1998 1415 / 1415 -155 / -155 Microbiology Past 72 Hours 03/17/17 16:45 Gram Stain - Final Wound - Elbow Wound Culture - Preliminary Staphylococcus aureus Laboratory Tests Past 24 Hrs 03/18/17 03/19/17 03/19/17 05:05 05:00 05:00 WBC 14.0 H RBC 3.06 L Hgb 9.6 L Hct 29.4 L MCV 96.1 H MCH 31.4 MCHC 32.7 RDW 15.9 H RDW Differential 52.3 H Plt Count 202 MPV 12.3 H Immature Gran % (Auto) 1.300 H Neut % (Auto) 73.7 H Lymph % (Auto) 10.7 L Gregory % (Auto) 11.0 H Eos % (Auto) 3.0 Baso % (Auto) 0.3 Absolute Neuts (auto) 10.3 H Absolute Lymphs (auto) 1.49 Total Counted Not Reportable Differential Comment SCANNED Diff Path Review Reviewed May foll Atypical Lymphocytes 2+ Sodium 148 H Potassium 3.9 Chloride 111 H Carbon Dioxide 29.0 Anion Gap 8 BUN 32 H Creatinine 1.18 Estim Creat Clear Calc 58.77 Est GFR (MDRD) Af Amer 79 Est GFR (MDRD) Non-Af 65 BUN/Creatinine Ratio 27.1 H Glucose 113 H Calcium 8.3 L Assessment/Plan Active and Suspected Problems Epistaxis (Acute) Nasal bone fractures (Acute) Closed head injury (Acute) RECOMMENDATIONS: 1. Continue D5W secondary to hypernatremia 2. Rhino Rocket management per ENT 3. Continue baseline antipsychotics 4. Consider weaning supplemental oxygen using Ventimask 5. No transfer to intensive care unit at this time IMPRESSIONS: 1. Acute respiratory insufficiency secondary to epistaxis secondary to closed head injury/nasal bone fracture/reported COPD Previous chest x-ray did show increase in infiltrates bilaterally. Mentation is much improved today compared to previous. Oxygenation saturations appear to be improved compared to yesterday. Would attempt decrease in FiO2 using Ventimask. Unclear if nasal cannula would be appropriate given Rhino Rocket. Anticipate inflammatory response secondary to aspiration of blood. Defer to ENT, but likely okay to discontinue antibiotics once Rhino Rocket ( foreign body) is removed. 2. Significant coagulopathy/thrombocytopenia/acute blood loss anemia Unclear etiology. Liver function tests are within normal limits except for a depressed albumin at 2.5. INR was elevated. This could be consistent with cirrhosis. Normal fibrinogen makes consumptive coagulopathy unlikely. Repeated INRs have been within normal range. Possible lab error. No indication to recheck coagulation studies at this time. 3. Acute kidney injury Renal function is improving at this time. Patient does have hypernatremia and hyperchloremia. Patient does not have excessive urine output indicating diabetes insipidus. Continue slow rehydration and volume resuscitation. 4. Hypothyroidism/dementia/debility/paranoid schizophrenia/frontotemporal Dementia Complicates care, management, recovery and prognosis. Code Visit Inpatient E&M: 64742 Subs Hosp L3
--- NOTE | 2017-03-19 07:31 | PCM.PROGNOTE ---
Patient Problems: Active and Suspected Problems Epistaxis (Acute) Nasal bone fractures (Acute) Closed head injury (Acute) Subjective: Chief complaint: Follow-up after admission for fall, impacted nasal bone fracture/fracture of the nasal septum, bilateral periorbital hematoma, suspected aspiration pneumonia, acute hypoxic respiratory insufficiency, acute blood loss anemia, acute kidney injury and coagulopathy. Patient seen and examined. No acute events overnight. Today, he is calm and comfortable, mildly short of breath. He has been on nonrebreather mask. Apart from hypoxia, other vital signs are stable. - Physical Exam General: Alert, Cooperative, Disoriented, - - Mildly short of breath. HEENT: EOMI, - - Traumatic, bilateral periorbital hematomas. Oral: Moist Mucosa, No Gingival or Mucosal Lesions/ Ulcerations Neck: Supple, No JVD, Negative Carotid Bruits, Trachea Midline, Thyroid Normal Size and Texture Lungs: Clear to auscultation, No wheeze, No rales, Diminished, Rhonchi Cardiovascular: Regular rate, Regular Rhythm, Normal S1, Normal S2, PMI Normal Abdomen: Bowel Sounds Present, Soft, Non Tender, Non-Distended, No Hepato-splenomegaly Extremities: No clubbing, No cyanosis, No edema Skin: No rashes, No breakdown Lymphatic: No Cervical, Supraclavicular, or Inguinal Adenopathy Neurological: Cranial nerves II-XII grossly intact, Neuro grossly intact Psych/Mental Status: Flat Affect Vital Signs Temp Pulse Resp BP Pulse Ox 97.9 F 80 20 H 101/59 L 94 03/19/17 05:07 03/19/17 05:07 03/19/17 05:07 03/19/17 05:07 03/19/17 05:07 Oxygen Flow Rate 15 Oxygen Delivery Method Non-Rebreather Weight: 157 lb 10.088 oz Intake and Output for Last 24 Hours 03/17/17 03/18/17 03/19/17 23:59 23:59 23:59 Intake Total 1998 1665 / 1665 320 / 320 Output Total 250 / 250 475 / 475 Balance 1998 1415 / 1415 -155 / -155 Microbiology Past 72 Hours 03/17/17 16:45 Gram Stain - Final Wound - Elbow Wound Culture - Preliminary Staphylococcus aureus Laboratory Tests Past 24 Hrs 03/18/17 03/19/17 03/19/17 05:05 05:00 05:00 WBC 14.0 H RBC 3.06 L Hgb 9.6 L Hct 29.4 L MCV 96.1 H MCH 31.4 MCHC 32.7 RDW 15.9 H RDW Differential 52.3 H Plt Count 202 MPV 12.3 H Immature Gran % (Auto) 1.300 H Neut % (Auto) 73.7 H Lymph % (Auto) 10.7 L Love % (Auto) 11.0 H Eos % (Auto) 3.0 Baso % (Auto) 0.3 Absolute Neuts (auto) 10.3 H Absolute Lymphs (auto) 1.49 Total Counted Not Reportable Differential Comment SCANNED Diff Path Review Reviewed May foll Atypical Lymphocytes 2+ Sodium 148 H Potassium 3.9 Chloride 111 H Carbon Dioxide 29.0 Anion Gap 8 BUN 32 H Creatinine 1.18 Estim Creat Clear Calc 58.77 Est GFR (MDRD) Af Amer 79 Est GFR (MDRD) Non-Af 65 BUN/Creatinine Ratio 27.1 H Glucose 113 H Calcium 8.3 L Assessment/Plan Active and Suspected Problems Epistaxis (Acute) Nasal bone fractures (Acute) Closed head injury (Acute) This is a 66 years old male patient admitted because of fall complicated by a closed head injury, impacted nasal bone fracture/fracture of the nasal septum, bilateral periorbital hematomas, suspected aspiration pneumonia, acute blood loss anemia as well as acute kidney injury., He was found to have coagulopathy with highly elevated INR, PT and PTT with unclear etiology. #1 fall/closed head injury/bilateral periorbital hematomas: Remained stable, no focal deficit. Vital signs are stable except hypoxia requiring nonrebreather mask. Repeat CT scan brain revealed stable fractures, no acute intracranial hemorrhage, no acute infarction. Discussed with the legal guardian and she agreed to have hospice and palliative care consulted. We are awaiting hospice and palliative care team to discuss with the legal guardian. #2 impacted nasal bone fracture/fracture of the nasal septum/epistaxis: Status post packing of the right nostril ?2. X-ray of the nasal bone as well as CT scan brain reviewed. ENT on the case and following, planning to remove the nasal packing today. At this time, no evidence of active bleeding from the right nostril. #3 coagulopathy: His INR, PT and PTT was highly elevated yesterday. He received 2 units of fresh frozen plasma and vitamin K 10 mg ?1. INR was 11.8 yesterday, came down to 1.3. Fibrinogen was normal. There was no reported patient has been on any anticoagulants and it is not clear why this patient has elevated INR. His LFT is normal. #4 suspected aspiration pneumonia: He is on IV Unasyn. Has been afebrile, still requiring nonrebreather mask for hypoxia. There is a concern that patient may aspirated blood. Pneumococcal antigen is negative. Blood cultures showed no growth in 5 days. Pulmonary on the case. Plan: Continue same treatment. #5 acute hypoxic respiratory insufficiency: Secondary to aspiration pneumonia, aspiration of the blood as well as nasal blockage by the nasal packing. Patient has been on nonrebreather mask. Patient is DNR CC. Plan to continue same treatment, no plan for intubation or BiPAP. #5 acute on chronic blood loss anemia: Secondary to epistaxis. Today's hemoglobin came down to 9.6 g/dL. he received a total of 4 units of packed RBCs. He does have chronic anemia with baseline hemoglobin around 9-11 g/dL. #6 acute kidney injury: Probably prerenal because of dehydration. Baseline creatinine is normal. Admission creatinine was 1.88, today's creatinine is 1.18, it is back to normal. #7 thrombocytopenia: Chronic, unclear etiology. Today's platelet count is 202,000, back to normal. #8 hypothyroidism: Continue levothyroxine. #9 dementia: Supportive care. #10 COPD: Stable, is on DuoNeb every 4 hours. #11 DVT prophylaxis: SCDs. This note was generated with [employer] dictation software. It may contain incorrect words, spelling, and punctuation that were not noted in checking the note before signing. Code Visit Inpatient E&M: 75804 Subs Hosp L2
--- NOTE | 2017-03-19 07:38 | PN_ITS ---
Patient Problems: Active and Suspected Problems Epistaxis (Acute) Nasal bone fractures (Acute) Closed head injury (Acute) Subjective: Chief complaint: Follow-up after admission for fall, impacted nasal bone fracture/fracture of the nasal septum, bilateral periorbital hematoma, suspected aspiration pneumonia, acute hypoxic respiratory insufficiency, acute blood loss anemia, acute kidney injury and coagulopathy. Patient seen and examined. No acute events overnight. Today, he is calm and comfortable, mildly short of breath. He has been on nonrebreather mask. Apart from hypoxia, other vital signs are stable. - Physical Exam General: Alert, Cooperative, Disoriented, - - Mildly short of breath. HEENT: EOMI, - - Traumatic, bilateral periorbital hematomas. Oral: Moist Mucosa, No Gingival or Mucosal Lesions/ Ulcerations Neck: Supple, No JVD, Negative Carotid Bruits, Trachea Midline, Thyroid Normal Size and Texture Lungs: Clear to auscultation, No wheeze, No rales, Diminished, Rhonchi Cardiovascular: Regular rate, Regular Rhythm, Normal S1, Normal S2, PMI Normal Abdomen: Bowel Sounds Present, Soft, Non Tender, Non-Distended, No Hepato- splenomegaly Extremities: No clubbing, No cyanosis, No edema Skin: No rashes, No breakdown Lymphatic: No Cervical, Supraclavicular, or Inguinal Adenopathy Neurological: Cranial nerves II-XII grossly intact, Neuro grossly intact Psych/Mental Status: Flat Affect Vital Signs Temp Pulse Resp BP Pulse Ox 97.9 F 80 20 H 101/59 L 94 03/19/17 05:07 03/19/17 05:07 03/19/17 05:07 03/19/17 05:07 03/19/17 05:07 Oxygen Flow Rate 15 Oxygen Delivery Method Non-Rebreather Weight: 157 lb 10.088 oz Intake and Output for Last 24 Hours 03/17/17 03/18/17 03/19/17 23:59 23:59 23:59 Intake Total 1998 1665 / 1665 320 / 320 Output Total 250 / 250 475 / 475 Balance 1998 1415 / 1415 -155 / -155 Microbiology Past 72 Hours 03/17/17 16:45 Gram Stain - Final Wound - Elbow Wound Culture - Preliminary Staphylococcus aureus Laboratory Tests Past 24 Hrs 03/18/17 03/19/17 03/19/17 05:05 05:00 05:00 WBC 14.0 H RBC 3.06 L Hgb 9.6 L Hct 29.4 L MCV 96.1 H MCH 31.4 MCHC 32.7 RDW 15.9 H RDW Differential 52.3 H Plt Count 202 MPV 12.3 H Immature Gran % (Auto) 1.300 H Neut % (Auto) 73.7 H Lymph % (Auto) 10.7 L Rush % (Auto) 11.0 H Eos % (Auto) 3.0 Baso % (Auto) 0.3 Absolute Neuts (auto) 10.3 H Absolute Lymphs (auto) 1.49 Total Counted Not Reportable Differential Comment SCANNED Diff Path Review Reviewed May foll Atypical Lymphocytes 2+ Sodium 148 H Potassium 3.9 Chloride 111 H Carbon Dioxide 29.0 Anion Gap 8 BUN 32 H Creatinine 1.18 Estim Creat Clear Calc 58.77 Est GFR (MDRD) Af Amer 79 Est GFR (MDRD) Non-Af 65 BUN/Creatinine Ratio 27.1 H Glucose 113 H Calcium 8.3 L Assessment/Plan Active and Suspected Problems Epistaxis (Acute) Nasal bone fractures (Acute) Closed head injury (Acute) This is a 66 years old male patient admitted because of fall complicated by a closed head injury, impacted nasal bone fracture/fracture of the nasal septum, bilateral periorbital hematomas, suspected aspiration pneumonia, acute blood loss anemia as well as acute kidney injury., He was found to have coagulopathy with highly elevated INR, PT and PTT with unclear etiology. #1 fall/closed head injury/bilateral periorbital hematomas: Remained stable, no focal deficit. Vital signs are stable except hypoxia requiring nonrebreather mask. Repeat CT scan brain revealed stable fractures, no acute intracranial hemorrhage, no acute infarction. Discussed with the legal guardian and she agreed to have hospice and palliative care consulted. We are awaiting hospice and palliative care team to discuss with the legal guardian. #2 impacted nasal bone fracture/fracture of the nasal septum/epistaxis: Status post packing of the right nostril ?2. X-ray of the nasal bone as well as CT scan brain reviewed. ENT on the case and following, planning to remove the nasal packing today. At this time, no evidence of active bleeding from the right nostril. #3 coagulopathy: His INR, PT and PTT was highly elevated yesterday. He received 2 units of fresh frozen plasma and vitamin K 10 mg ?1. INR was 11.8 yesterday, came down to 1.3. Fibrinogen was normal. There was no reported patient has been on any anticoagulants and it is not clear why this patient has elevated INR. His LFT is normal. #4 suspected aspiration pneumonia: He is on IV Unasyn. Has been afebrile, still requiring nonrebreather mask for hypoxia. There is a concern that patient may aspirated blood. Pneumococcal antigen is negative. Blood cultures showed no growth in 5 days. Pulmonary on the case. Plan: Continue same treatment. #5 acute hypoxic respiratory insufficiency: Secondary to aspiration pneumonia, aspiration of the blood as well as nasal blockage by the nasal packing. Patient has been on nonrebreather mask. Patient is DNR CC. Plan to continue same treatment, no plan for intubation or BiPAP. #5 acute on chronic blood loss anemia: Secondary to epistaxis. Today's hemoglobin came down to 9.6 g/dL. he received a total of 4 units of packed RBCs. He does have chronic anemia with baseline hemoglobin around 9-11 g/dL. #6 acute kidney injury: Probably prerenal because of dehydration. Baseline creatinine is normal. Admission creatinine was 1.88, today's creatinine is 1.18 , it is back to normal. #7 thrombocytopenia: Chronic, unclear etiology. Today's platelet count is 202, 000, back to normal. #8 hypothyroidism: Continue levothyroxine. #9 dementia: Supportive care. #10 COPD: Stable, is on DuoNeb every 4 hours. #11 DVT prophylaxis: SCDs. This note was generated with [employer] dictation software. It may contain incorrect words, spelling, and punctuation that were not noted in checking the note before signing. Code Visit Inpatient E&M: 79440 Subs Hosp L2
[2017-03-19] MEDS: ARIPiprazole 10 MG Tablet PO ×2 (10:24→23:07)
[2017-03-19] MEDS: Benztropine 2 MG Tablet 1 MG PO (10:24)
[2017-03-19] MEDS: Divalproex Sodium 125 MG SPRINKLE PO ×2 (10:25→23:08)
[2017-03-19] MEDS: clonazePAM 1 MG Tablet 2 MG PO ×4 (10:25→23:08)
[2017-03-19] MEDS: ChlorproMAZINE 25 MG Tablet PO ×2 (10:25→23:07)
[2017-03-19] MEDS: Haloperidol Lactate 5 MG/ML Vial IV (10:40)
--- NOTE | 2017-03-19 10:41 | NURSING ---
NET UI DEVELOPER calls out for assistance. Patient was sitting up at side of bed mumbling to his self. Patient doesn't know where he is. Wants to get up into his chair. Assisted to same. Patient pulse ox 69% RA. Patient non-compliant with venti-mask despite numerous attempts to place same onto patient. Patient took meds crushed in icecream with a great deal of encouragment. Patient continues to not want to wear mask. Attempting to pullout Rhinorocket to his nose. 1:1 not effective. Haldol 5mg IV given. NET UI DEVELOPER remains at bedside.
[2017-03-19] MEDS: 0.9% NaCl Peripheral Flush Adult/Peds IV (10:44)
--- NOTE | 2017-03-19 12:06 | PCM.PN.BLA ---
Progress Note ENT: 03-19-17, 12 noon. Right nasal pack removed uneventfully. No obvious bleeding. Mike Strickland M.D.
[2017-03-19] MEDS: Clindamycin 600 MG/50 ML BAG 100 MG IV ×2 (14:33→23:07)
--- NOTE | 2017-03-19 15:30 | NURSING ---
rn SPOKE WITH ST ROHITH AND UPDATED HIM THAT PATIENT IS CONTINUING TO COUGH WITH WATER PROTOCOL. PER ROHITH, SPEAK WITH DR. ESPINOZA TO DETERMINE IF PATIENT SHOULD BE NPO, MENDOZA THE MD OKAY WITH THE PATIENT HAVING WATER TO DRINK DESPITE COUGHING. DR. ESPINOZA UPDATED THAT PATIENT IS COUGHING EACH TIME HE CONSUMES WATER DESPITE ATTEMPTS FROM STAFF TO CUE PATIENT TO SLOW DOWN WHEN DRINKING. RHONCHI NOTED TO ANTERIOR BILAT UPPER LOBES. PER DR. ESPINOZA, PATIENT MAY DRINK WATER HE TOLERATES.
[2017-03-19] MEDS: Ipratropium/Albuterol Sulfate 3 ML AMPUL.NEB INHALATION (19:18)
[2017-03-20] VITALS (14 sets, daily range): BP systolic 86–103; BP diastolic 51–69; PULSE 72–98; RESP 18–24; TEMP 36.6–36.8; O2SAT 91–96
[2017-03-20] MEDS: Ipratropium/Albuterol Sulfate 3 ML AMPUL.NEB INHALATION ×4 (00:09→11:22)
[2017-03-20] MEDS: Clindamycin 600 MG/50 ML BAG 100 MG IV (05:07)
[2017-03-20] MEDS: Levothyroxine 100 MCG Tablet 200 MCG PO (06:17)
[2017-03-20] MEDS: QUEtiapine 100 MG Tablet 200 MG PO (06:17)
--- NOTE | 2017-03-20 07:40 | PCM.PROGNOTE ---
Patient Problems: Active and Suspected Problems Epistaxis (Acute) Nasal bone fractures (Acute) Closed head injury (Acute) Subjective: Chief complaint: Follow-up after admission for fall, impacted nasal bone fracture/fracture of the nasal septum, bilateral periorbital hematoma, suspected aspiration pneumonia, acute hypoxic respiratory insufficiency, acute blood loss anemia, acute kidney injury and coagulopathy. Patient seen and examined. No acute events overnight. He remained disoriented, incoherent speech. He is calm and comfortable. He is requiring high flow oxygen at 6 L, other vital signs are stable. - Physical Exam General: Alert, Cooperative, Disoriented HEENT: PERRLA, EOMI, - - Traumatic, bilateral periorbital hematomas. Oral: Moist Mucosa, No Gingival or Mucosal Lesions/ Ulcerations Neck: Supple, No JVD, Negative Carotid Bruits, Trachea Midline, Thyroid Normal Size and Texture Lungs: Clear to auscultation, No wheeze, No rales, Diminished, Rhonchi Cardiovascular: Regular rate, Regular Rhythm, Normal S1, Normal S2, PMI Normal Abdomen: Bowel Sounds Present, Soft, Non Tender, Non-Distended, No Hepato-splenomegaly Extremities: No clubbing, No cyanosis, No edema Skin: No rashes, No breakdown Lymphatic: No Cervical, Supraclavicular, or Inguinal Adenopathy Neurological: Cranial nerves II-XII grossly intact, Neuro grossly intact Psych/Mental Status: Flat Affect Vital Signs Temp Pulse Resp BP Pulse Ox 98.1 F 94 18 93/51 L 92 03/20/17 06:00 03/20/17 06:54 03/20/17 06:00 03/20/17 06:00 03/20/17 06:00 Oxygen Flow Rate 6 Oxygen Delivery Method Nasal Cannula Weight: 157 lb 10.088 oz Intake and Output for Last 24 Hours 03/18/17 03/19/17 03/20/17 23:59 23:59 23:59 Intake Total 1665 / 1665 2511 / 2511 392 / 392 Output Total 250 / 250 975 / 975 300 / 300 Balance 1415 / 1415 1536 / 1536 92 / 92 Microbiology Past 72 Hours 03/17/17 16:45 Gram Stain - Final Wound - Elbow Wound Culture - Final Meth. resistant Staph. aureus Assessment/Plan Active and Suspected Problems Epistaxis (Acute) Nasal bone fractures (Acute) Closed head injury (Acute) This is a 66 years old male patient admitted because of fall complicated by a closed head injury, impacted nasal bone fracture/fracture of the nasal septum, bilateral periorbital hematomas, suspected aspiration pneumonia, acute blood loss anemia as well as acute kidney injury., He was found to have coagulopathy with highly elevated INR, PT and PTT with unclear etiology. #1 fall/closed head injury/bilateral periorbital hematomas: Remained stable, no focal deficit. Vital signs are stable except hypoxia, on 6 L of oxygen. Repeat CT scan brain revealed stable fractures, no acute intracranial hemorrhage, no acute infarction. Discussed with the legal guardian and she agreed to have hospice and palliative care consulted. Plan: Awaiting hospice and palliative care recommendations about DC to hospice facility versus half-way facility with hospice. #2 impacted nasal bone fracture/fracture of the nasal septum/epistaxis: Status post removal of the right nasal packing, no more epistaxis. X-ray of the nasal bone as well as CT scan brain reviewed. CBC from yesterday reviewed, hemoglobin and hematocrit are stable. #3 coagulopathy: His INR, PT and PTT was highly elevated yesterday. He received 2 units of fresh frozen plasma and vitamin K 10 mg ?1. INR was 11.8, came down to 1.3. Fibrinogen was normal. There was no reported patient has been on any anticoagulants and it is not clear why this patient has elevated INR. His LFT is normal. #4 suspected aspiration pneumonia: He is on IV Unasyn. Has been afebrile, still requiring nonrebreather mask for hypoxia. There is a concern that patient may aspirated blood. Pneumococcal antigen is negative. Blood cultures showed no growth in 5 days. Pulmonary on the case. Plan: Patient will be discharged on Augmentin. #5 acute hypoxic respiratory insufficiency: Secondary to aspiration pneumonia, aspiration of the blood as well as nasal blockage by the nasal packing. Patient has been on nonrebreather mask. Patient is DNR CC. He is down to 6 L of oxygen. #5 acute on chronic blood loss anemia: Secondary to epistaxis. Yesterday's hemoglobin came down to 9.6 g/dL. he received a total of 4 units of packed RBCs. He does have chronic anemia with baseline hemoglobin around 9-11 g/dL. #6 subcutaneous small abscess around the right elbow: He is on IV clindamycin. Wound culture from the abscess revealed MRSA. Blood culture were negative. #7 acute kidney injury: Probably prerenal because of dehydration. Baseline creatinine is normal. Admission creatinine was 1.88, yesterday's creatinine is 1.18, it is back to normal. #8 thrombocytopenia: Chronic, unclear etiology. Yesterday's platelet count is 202,000, back to normal. #9 hypothyroidism: Continue levothyroxine. #10 dementia: Supportive care. #11 COPD: Stable, is on DuoNeb every 4 hours. #12 DVT prophylaxis: SCDs. This note was generated with [employer] software. It may contain incorrect words, spelling, and punctuation that were not noted in checking the note before signing.
--- NOTE | 2017-03-20 07:46 | PN_ITS ---
Patient Problems: Active and Suspected Problems Epistaxis (Acute) Nasal bone fractures (Acute) Closed head injury (Acute) Subjective: Chief complaint: Follow-up after admission for fall, impacted nasal bone fracture/fracture of the nasal septum, bilateral periorbital hematoma, suspected aspiration pneumonia, acute hypoxic respiratory insufficiency, acute blood loss anemia, acute kidney injury and coagulopathy. Patient seen and examined. No acute events overnight. He remained disoriented , incoherent speech. He is calm and comfortable. He is requiring high flow oxygen at 6 L, other vital signs are stable. - Physical Exam General: Alert, Cooperative, Disoriented HEENT: PERRLA, EOMI, - - Traumatic, bilateral periorbital hematomas. Oral: Moist Mucosa, No Gingival or Mucosal Lesions/ Ulcerations Neck: Supple, No JVD, Negative Carotid Bruits, Trachea Midline, Thyroid Normal Size and Texture Lungs: Clear to auscultation, No wheeze, No rales, Diminished, Rhonchi Cardiovascular: Regular rate, Regular Rhythm, Normal S1, Normal S2, PMI Normal Abdomen: Bowel Sounds Present, Soft, Non Tender, Non-Distended, No Hepato- splenomegaly Extremities: No clubbing, No cyanosis, No edema Skin: No rashes, No breakdown Lymphatic: No Cervical, Supraclavicular, or Inguinal Adenopathy Neurological: Cranial nerves II-XII grossly intact, Neuro grossly intact Psych/Mental Status: Flat Affect Vital Signs Temp Pulse Resp BP Pulse Ox 98.1 F 94 18 93/51 L 92 03/20/17 06:00 03/20/17 06:54 03/20/17 06:00 03/20/17 06:00 03/20/17 06:00 Oxygen Flow Rate 6 Oxygen Delivery Method Nasal Cannula Weight: 157 lb 10.088 oz Intake and Output for Last 24 Hours 03/18/17 03/19/17 03/20/17 23:59 23:59 23:59 Intake Total 1665 / 1665 2511 / 2511 392 / 392 Output Total 250 / 250 975 / 975 300 / 300 Balance 1415 / 1415 1536 / 1536 92 / 92 Microbiology Past 72 Hours 03/17/17 16:45 Gram Stain - Final Wound - Elbow Wound Culture - Final Meth. resistant Staph. aureus Assessment/Plan Active and Suspected Problems Epistaxis (Acute) Nasal bone fractures (Acute) Closed head injury (Acute) This is a 66 years old male patient admitted because of fall complicated by a closed head injury, impacted nasal bone fracture/fracture of the nasal septum, bilateral periorbital hematomas, suspected aspiration pneumonia, acute blood loss anemia as well as acute kidney injury., He was found to have coagulopathy with highly elevated INR, PT and PTT with unclear etiology. #1 fall/closed head injury/bilateral periorbital hematomas: Remained stable, no focal deficit. Vital signs are stable except hypoxia, on 6 L of oxygen. Repeat CT scan brain revealed stable fractures, no acute intracranial hemorrhage, no acute infarction. Discussed with the legal guardian and she agreed to have hospice and palliative care consulted. Plan: Awaiting hospice and palliative care recommendations about DC to hospice facility versus detention facility with hospice. #2 impacted nasal bone fracture/fracture of the nasal septum/epistaxis: Status post removal of the right nasal packing, no more epistaxis. X-ray of the nasal bone as well as CT scan brain reviewed. CBC from yesterday reviewed, hemoglobin and hematocrit are stable. #3 coagulopathy: His INR, PT and PTT was highly elevated yesterday. He received 2 units of fresh frozen plasma and vitamin K 10 mg ?1. INR was 11.8, came down to 1.3. Fibrinogen was normal. There was no reported patient has been on any anticoagulants and it is not clear why this patient has elevated INR. His LFT is normal. #4 suspected aspiration pneumonia: He is on IV Unasyn. Has been afebrile, still requiring nonrebreather mask for hypoxia. There is a concern that patient may aspirated blood. Pneumococcal antigen is negative. Blood cultures showed no growth in 5 days. Pulmonary on the case. Plan: Patient will be discharged on Augmentin. #5 acute hypoxic respiratory insufficiency: Secondary to aspiration pneumonia, aspiration of the blood as well as nasal blockage by the nasal packing. Patient has been on nonrebreather mask. Patient is DNR CC. He is down to 6 L of oxygen. #5 acute on chronic blood loss anemia: Secondary to epistaxis. Yesterday's hemoglobin came down to 9.6 g/dL. he received a total of 4 units of packed RBCs. He does have chronic anemia with baseline hemoglobin around 9-11 g/dL. #6 subcutaneous small abscess around the right elbow: He is on IV clindamycin. Wound culture from the abscess revealed MRSA. Blood culture were negative. #7 acute kidney injury: Probably prerenal because of dehydration. Baseline creatinine is normal. Admission creatinine was 1.88, yesterday's creatinine is 1.18, it is back to normal. #8 thrombocytopenia: Chronic, unclear etiology. Yesterday's platelet count is 202,000, back to normal. #9 hypothyroidism: Continue levothyroxine. #10 dementia: Supportive care. #11 COPD: Stable, is on DuoNeb every 4 hours. #12 DVT prophylaxis: SCDs. This note was generated with [employer] software. It may contain incorrect words, spelling, and punctuation that were not noted in checking the note before signing.
[2017-03-20 08:21] LABS: Absolute Lymphocyte Count 1.56 X10^3/ul (0.83-4.51); Absolute Neutrophil Count 7.3 X10^3/uL (2.0-7.7); Anion Gap 6 (5-15); BUN 25 mg/dL (7-18); BUN/Creat Ratio 22.3 RATIO (10-20); Basophil# 0.02 X10^3/uL; Basophil% 0.2 % (0-1); Calcium,Total 8.1 mg/dL (8.5-10.1); Chloride 108 mmol/L (98-107); Creatinine, Serum 1.12 mg/dL (0.70-1.30); Differential Indicated SCAN CRITERIA MET; EST Glomerular Filtration Rate 69 mL/min (>60); Eosinophil# 0.59 X10^3/uL; Eosinophils% 5.6 % (0-5); Est Glom Filt Rate - Afr Amer 84 mL/min (>60); Estimated Creatinine Clearance 61.92 ml/min; Glucose 104 mg/dL (74-106); Hematocrit 27.3 % (40-54); Hemoglobin 8.7 g/dl (13.0-16.5); Lymphocyte # 1.56 X10^3/ul (4.0); Lymphocyte % 14.7 % (19-41); Magnesium 1.9 mg/dL (1.6-2.6); Mean Corp Hgb Conc 31.9 g/gl (32-36); Mean Corpuscular Hgb 30.3 pg (27.0-32.0); Mean Corpuscular Volume 95.1 fL (80-94); Mean Platelet Vol. 11.7 fl (6.2-12.0); Monocyte# 0.97 X10^3/uL; Monocyte% 9.1 % (0-10); Neutrophil # 7.29 X10^3/uL (2.7-7.7); Neutrophil % 68.6 % (47-70); POSITIVE COUNT NO; POSITIVE DIFFERENTIAL NO; POSITIVE MORPHOLOGY NO; Phosphorus 2.3 mg/dL (2.5-4.9); Platelet Count 210 K/mm3 (150-450); Potassium 3.4 mmol/L (3.5-5.1); RBC Distribution Width CV 15.6 % (11.6-14.6); RBC Distribution Width SD 53.5 fl (35.1-43.9); Red Blood Count 2.87 M/mm3 (4.6-6.2); Sodium Level 144 mmol/L (136-145); White Blood Count 10.6 K/mm3 (4.4-11.0)
[2017-03-20 08:22] LABS: Absolute Nucleated RBC Count 0.12 10^3/uL (0-5); NRBC Flagged by Analyzer 1.1 % (0-5)
[2017-03-20 08:41] LABS: Anisocytosis 2+; Hypochromasia 2+; Polychromasia 1+; Target Cells 1+
--- NOTE | 2017-03-20 08:49 | PCM.PROGNOTE ---
Patient Problems: Active and Suspected Problems Epistaxis (Acute) Nasal bone fractures (Acute) Closed head injury (Acute) Subjective: Patient continues to improve from a respiratory standpoint. Patient is reportedly a little bit more directable overnight. Rhino Rocket has been removed. No repeated bleeding has been reported by nursing staff. Patient not able to add much history - Physical Exam General: Alert, No apparent distress, Confused, Disoriented, Non-Cooperative HEENT: PERRLA, EOMI, - - No epistaxis noted Oral: Moist Mucosa, No Gingival or Mucosal Lesions/ Ulcerations Neck: Supple, No JVD, No Nodes, Trachea Midline Lungs: No rhonchi, No wheeze, No rales, Diminished, - - Symmetric expansion. No dullness to percussion. Cardiovascular: Regular rate, Regular Rhythm, Normal S1, Normal S2, No murmurs, No rub noted, No Gallop Abdomen: Bowel Sounds Present, Soft, Non Tender, Non-Distended Extremities: No cyanosis, No edema, Capillary Refill Less than 3 Seconds, Clubbing Skin: - - Significant change compared to previous Musculoskeletal: No Tenderness to Palpation of Joints or Extremities Lymphatic: No Cervical, Supraclavicular, or Inguinal Adenopathy Neurological: Cranial nerves II-XII grossly intact, Neuro grossly intact, Motor Exam 5/5 strength throughout Psych/Mental Status: Flat Affect, Restless Vital Signs Temp Pulse Resp BP Pulse Ox 36.6 C 84 20 H 86/53 L 94 03/20/17 08:15 03/20/17 08:15 03/20/17 08:27 03/20/17 08:15 03/20/17 08:15 Oxygen Flow Rate 6 Oxygen Delivery Method Nasal Cannula Weight: 71.5 kg Intake and Output for Last 24 Hours 03/18/17 03/19/17 03/20/17 23:59 23:59 23:59 Intake Total 1665 / 1665 2511 / 2511 392 / 392 Output Total 250 / 250 975 / 975 300 / 300 Balance 1415 / 1415 1536 / 1536 92 / 92 Microbiology Past 72 Hours 03/17/17 16:45 Gram Stain - Final Wound - Elbow Wound Culture - Final Meth. resistant Staph. aureus Laboratory Tests Past 24 Hrs 03/20/17 03/20/17 07:50 07:50 WBC 10.6 RBC 2.87 L Hgb 8.7 L Hct 27.3 L MCV 95.1 H MCH 30.3 MCHC 31.9 L RDW 15.6 H RDW Differential 53.5 H Plt Count 210 MPV 11.7 Immature Gran % (Auto) 1.800 H Neut % (Auto) 68.6 Lymph % (Auto) 14.7 L Phillips % (Auto) 9.1 Eos % (Auto) 5.6 H Baso % (Auto) 0.2 Absolute Neuts (auto) 7.3 Absolute Lymphs (auto) 1.56 Total Counted Not Reportable Nucleated RBC % 1.1 Differential Comment Diff Path Review May foll Polychromasia 1+ Hypochromasia 2+ Anisocytosis 2+ Target Cells 1+ Absolute Retic 0.12 Sodium 144 Potassium 3.4 L Chloride 108 H Carbon Dioxide 30.0 Anion Gap 6 BUN 25 H Creatinine 1.12 Estim Creat Clear Calc 61.92 Est GFR (MDRD) Af Amer 84 Est GFR (MDRD) Non-Af 69 BUN/Creatinine Ratio 22.3 H Glucose 104 Calcium 8.1 L Phosphorus 2.3 L Magnesium 1.9 Assessment/Plan Active and Suspected Problems Epistaxis (Acute) Nasal bone fractures (Acute) Closed head injury (Acute) RECOMMENDATIONS: 1. Discontinue D5W, supplement potassium phosphate 2. Await results of hospice meeting 3. Continue baseline antipsychotics 4. Consider weaning supplemental oxygen using Ventimask 5. Consider discontinuation of antibiotics IMPRESSIONS: 1. Acute respiratory insufficiency secondary to epistaxis secondary to closed head injury/nasal bone fracture/reported COPD Previous chest x-ray did show increase in infiltrates bilaterally. Mentation similar today compared to previous. Oxygenation saturations appear to be improved compared to yesterday. Would attempt decrease in FiO2 using Ventimask as high flow nasal cannula may re-exacerbate nasal bleed. No nuchal suspicion for inflammatory response secondary to aspiration of blood leading to decompensation. Defer to ENT, but likely okay to discontinue antibiotics. 2. Significant coagulopathy/thrombocytopenia/acute blood loss anemia Unclear etiology. Liver function tests are within normal limits except for a depressed albumin at 2.5. INR was elevated. This could be consistent with cirrhosis. Normal fibrinogen makes consumptive coagulopathy unlikely. Repeated INRs have been within normal range. Possible lab error. No indication to recheck coagulation studies at this time. 3. Acute kidney injury/hypernatremia/hyperchloremia Renal function is improving at this time. Water repletion is completed. Okay to discontinue D5W. Will give potassium phosphate IV for hypokalemia and hypophosphatemia.. Patient does not have excessive urine output indicating diabetes insipidus. Continue slow rehydration and volume resuscitation. 4. Hypothyroidism/dementia/debility/paranoid schizophrenia/frontotemporal Dementia Complicates care, management, recovery and prognosis. Code Visit Inpatient E&M: 67816 Subs Hosp L3
[2017-03-20] MEDS: ChlorproMAZINE 25 MG Tablet PO (10:30)
[2017-03-20] MEDS: Metoprolol(XL)Succ 50 MG Tablet PO (10:31)
[2017-03-20] MEDS: clonazePAM 1 MG Tablet 2 MG PO (10:35)
[2017-03-20] MEDS: ARIPiprazole 10 MG Tablet PO (10:36)
[2017-03-20] MEDS: Divalproex Sodium 125 MG SPRINKLE PO (10:37)
[2017-03-20] MEDS: Benztropine 2 MG Tablet 1 MG PO (10:38)
--- NOTE | 2017-03-20 11:41 | TREXTCAR_ITS ---
- Diet 03/15/17 16:39 Diet: Regular Diet Food consistency:: Puree Dietary Modifications:: Pureed Diet Is pt able to select menu?: No Diet Comments: purees only, FFWP, TOTAL FEED; Assist cup w/ thin liquids, seated upright - Routine Orders/Code Status O2 Liters per Minute: 6 O2 Frequency: Continuous Keep PO Greater than or Equal to (%): 92 Code Status: DNRCC - Wound(s) Bridge of nose Wound Type: Laceration Internal Nose/sinuses Wound Type: nasal tear d/t fracture rt elbow Wound Type: hx cellulitis opened up on own - Suggestions for Active Care Change Position every (hours): 3 Hours to sit in a chair: 2 Times a day to sit in chair: 3 - Therapies Weight Bearing: Weight bearing as tolerated Physical Therapy: Eval and Treat Occupational Therapy: Eval and Treat Speech Therapy: Eval and Treat - Allergies/Procedures Done in Hospital Allergies/Adverse Reactions: Allergies No Known Allergies Allergy (Verified 02/19/17 13:25) - Type of Care/Length of Stay Estimated LOS: More Than 30 Days Type of Care Needed: Skilled Rehab Potential: Fair Prognosis: Fair - Additional Orders/Day of Discharge Additional Orders: Follow up with hospice and palliative care. H&P will serve as current which was dated: 03/12/17 Day of Discharge: 03/20/17 - Dietary and Speech Recommendations Dietitian Recommendations/Changes: Rec regular diet, consistency per OFFICE SUPPORT SPECIALIST. If PO intake to remains poor, may need to consider alternate nutrition support- consult RD as needed for recommendations. Recommend check CBW. - Follow Up Care Primary Care Physician: Vel Aranda [Primary Care Provider] - Please follow up with your Primary Care Physician in: 1 week.
--- NOTE | 2017-03-20 12:09 | NURSING ---
attempted to call Janessa Ortiz, patient guardian, to notify of patient transfer time back to [facility] - no response, voicemail box is full, unable to leave message. Jorge from hospice notified of roll picker time
--- NOTE | 2017-03-20 12:15 | NURSING ---
Called report to Mariann LANG at [facility]
--- NOTE | 2017-03-20 14:32 | PCM.DC.SUM ---
Discharge Date and Diagnosis Date of Admission: 03/12/17 Date of Discharge: 03/20/17 - Primary Discharge Diagnosis #1 fall/closed head injury/bilateral periorbital hematomas. #2 impacted nasal bone fracture/fracture of the nasal symptoms/epistaxis. #3 coagulopathy of unclear etiology. #4 suspected aspiration pneumonia. #5 acute hypoxic respiratory failure. #6 MRSA subcutaneous abscess around the right elbow. #7 acute kidney injury. #8 thrombocytopenia, resolved. - Secondary Discharge Diagnosis Chronic Problems Paranoid schizophrenia (Chronic) Hyperparathyroidism (Chronic) Hypertension (Chronic) Dementia (Chronic) Chronic obstructive lung disease (Chronic) Hospital Course and Treatment Imaging Results: Clinical Impression(s) from Imaging Studies Chest X-Ray 03/12/17 14:31 IMPRESSION: Progressive right upper lobe and right perihilar infiltration and left lower lobe infiltrate. Follow-up is recommended. Electronically Signed: Braydon Serra MD at 15:17 EST Tel [phone], Service support , Elbow X-Ray 03/12/17 14:42 IMPRESSION: Irregularity of the olecranon of the proximal ulna with soft tissue calcifications and irregularity of the cortex. This may represent a chronic osteomyelitis. Overlying soft tissue swelling. Clinical correlation is recommended. There is no evidence of joint effusion. No fracture is seen. Electronically Signed: Braydon Serra MD at 15:16 EST Tel [phone], Service support , Brain CT 03/12/17 16:13 IMPRESSION: Comminuted nasal bone and nasal septal fractures associated with opacification of the nasal cavities and nasal soft tissue swelling. Small air-fluid levels within the maxillary and sphenoid sinuses may be secondary to history of sinusitis however this may be related to recent trauma, consider dedicated maxillofacial CT for further evaluation. Bilateral periorbital hematomas. Electronically Signed: Kayla Rodriguez MD at 17:22 EST Tel , Service support , Facial/Sinus 03/12/17 19:04 IMPRESSION: Diffuse soft tissue swelling overlying the nose. Impacted nasal bone fracture. Fracture of the nasal septum. Electronically Signed: Blaze Rodriguez MD at 20:33 EST , Service support , Chest X-Ray 03/15/17 06:43 IMPRESSION: Increasing bilateral pulmonary infiltrates Electronically Signed: Esdras Crowe MD, FACR at 7:34 EST , Service support , Chest X-Ray 03/17/17 09:24 IMPRESSION: Since prior study, there is a progression of the bilateral airspace disease worse in the right hemithorax. Electronically Signed: Braydon Serra MD at 10:40 EST Tel [phone], Service support , Brain CT 03/17/17 14:53 IMPRESSION: Known comminuted nasal fracture. Air-fluid level in the right sphenoid sinus with opacification of the right ethmoid sinus and thickening of the right maxillary sinus. Electronically Signed: Braydon Serra MD at 15:35 EST Tel [phone], Service support , Dr. Strickland, ENT. Dr. March, pulmonology/critical care. Operations: None Procedures: None Summary of Care Provided: This is a 66 years old male patient admitted because of fall complicated by a closed head injury, impacted nasal bone fracture/fracture of the nasal septum, bilateral periorbital hematomas, suspected aspiration pneumonia, acute blood loss anemia as well as acute kidney injury., He was found to have coagulopathy with highly elevated INR, PT and PTT with unclear etiology. #1 fall/closed head injury/bilateral periorbital hematomas: Treated conservatively with pain control and close monitoring. Done on admission and CT scan brain as follow-up and revealed stable fractures, no acute intracranial hemorrhage, no acute infarction. Patient had protracted long hospital course. After discussion with the legal guardian, decision was made to consult hospice and palliative care team who evaluated the patient and decided that patient is not a candidate for hospice and medical facility and they agreed to see the patient at the alf facility. So he is status #2 impacted nasal bone fracture/fracture of the nasal septum/epistaxis: Treated with nasal packing and local vasoconstrictors By ENT. The nasal packing remained in place for a few days, status post removal one day before discharge and patient had no more active epistaxis. #3 coagulopathy: Without clear etiology. His INR was 11.8. This was treated with fresh frozen plasma and vitamin K and his INR came down to 1.3. Fibrinogen was normal. There was no evidence of DIC. There was no reported patient has been on any anticoagulants and it is not clear why this patient has elevated INR. His LFT is normal. #4 suspected aspiration pneumonia: With possible aspiration of the blood. Initially, treated with IV Zosyn and later, he was started on IV Unasyn. Pneumococcal antigen is negative. Blood cultures showed no growth in 5 days. Patient discharged on clindamycin to cover for both aspiration pneumonia as well as MRSA subcutaneous skin abscess around the right elbow. #5 acute hypoxic respiratory failure: Secondary to aspiration pneumonia, aspiration of the blood as well as nasal blockage by the nasal packing. It was treated with oxygen by nonrebreather mask and oxygen by nasal cannula. Patient is DNR CC and no intubation done. We could not put the BiPAP on because of the nasal fractures. With above-mentioned treatment, patient was able to be weaned down to oxygen by nasal cannula at 6 L. #5 acute on chronic blood loss anemia: Secondary to epistaxis. he received a total of 4 units of packed RBCs. Discharge hemoglobin was 8.7 g/dL. he does have chronic anemia with baseline hemoglobin around 9-11 g/dL. #6 subcutaneous small abscess around the right elbow: Treated with IV clindamycin. Wound culture from the abscess revealed MRSA. Blood culture were negative. Discharged on clindamycin #7 acute kidney injury: Probably prerenal because of dehydration. Treated with IV fluids, admission creatinine was 1.88, discharge creatinine is 1.18, it is back to normal. #8 thrombocytopenia: Chronic, unclear etiology. Discharge platelet count is 202,000, back to normal. Patient discharged to alf facility in a guarded condition, discharged on 6 L of oxygen, discharged on clindamycin for aspiration pneumonia and MRSA subcutaneous skin infection around the right elbow, he was seen and evaluated by hospice and palliative care who will follow up with him at the alf [facility], recommended follow-up with PCP in 1 week. This note was generated with [employer] dictation software. It may contain incorrect words, spelling, and punctuation that were not noted in checking the note before signing. Home Medications: Medications to take at Discharge Ergocalciferol [Vitamin D] 50,000 unit PO MOTH 12/22/12 Levothyroxine Sodium [Synthroid] 200 mcg PO DAILY 12/22/12 Magnesium Oxide [Mag-Ox 400] 400 mg PO DAILY 12/22/12 Multivitamins,Therapeutic [Multivitamin] 1 tablet PO DAILY 12/22/12 Senna/Docusate Sodium [Senokot-S] 1 tablet PO QHS 12/22/12 Albuterol Aerosols [Ventolin Aerosols] 2.5 mg INHALATION Q4H PRN PRN 02/19/17 Aripiprazole 10 mg PO BID 02/19/17 Chlorpromazine HCl 25 mg PO BID 02/19/17 Divalproex Sodium [Depakote Sprinkle] 125 mg PO BID 02/19/17 Metoprolol Succinate 50 mg PO DAILY 02/19/17 Olanzapine 5 mg PO Q6H PRN PRN 02/19/17 Quetiapine Fumarate [Seroquel] 200 mg PO TID 02/19/17 Benztropine Mesylate 0.5 mg PO DAILY 03/12/17 Benztropine Mesylate 1 mg PO DAILY 03/12/17 Guaifenesin 400 mg PO Q6H PRN PRN 03/12/17 Loperamide [Imodium] 2 mg PO TID PRN 03/12/17 Clindamycin [Cleocin] 450 mg PO TID 5 Days cap 03/20/17 Clonazepam [Klonopin] 2 mg PO 4X/DAY #10 tab 03/20/17 Ipratropium/Albuterol Sulfate [Duoneb] 3 ml INHALATION Q6H #1 ampul.neb 03/20/17 Lorazepam [Ativan] 2 mg PO Q4H PRN #7 tab 03/20/17 Following Prescrptions Were Given to Patient: Lorazepam [Ativan] 2 mg PO Q4H PRN #7 tab PRN Reason: Agitation Ipratropium/Albuterol Sulfate [Duoneb] 3 ml INHALATION Q6H #1 ampul.neb Clindamycin [Cleocin] 450 mg PO TID 5 Days cap Clonazepam [Klonopin] 2 mg PO 4X/DAY #10 tab Primary Care Physician: Vel Aranda [Primary Care Provider] - Please follow up with your Primary Care Physician in: 1 week. Disposition: Long-Term facility - With hospice Minutes spent on discharge:: 36 Patient Condition:: Guarded Meaningful Use Info Meaningful Use Diagnoses (Choose all that apply): None applicable Code Visit Inpatient E&M: 75719 Disch Hosp
--- NOTE | 2017-03-20 14:35 | DS.PCM_ITS ---
Discharge Date and Diagnosis Date of Admission: 03/12/17 Date of Discharge: 03/20/17 - Primary Discharge Diagnosis #1 fall/closed head injury/bilateral periorbital hematomas. #2 impacted nasal bone fracture/fracture of the nasal symptoms/epistaxis. #3 coagulopathy of unclear etiology. #4 suspected aspiration pneumonia. #5 acute hypoxic respiratory failure. #6 MRSA subcutaneous abscess around the right elbow. #7 acute kidney injury. #8 thrombocytopenia, resolved. - Secondary Discharge Diagnosis Chronic Problems Paranoid schizophrenia (Chronic) Hyperparathyroidism (Chronic) Hypertension (Chronic) Dementia (Chronic) Chronic obstructive lung disease (Chronic) Hospital Course and Treatment Imaging Results: Clinical Impression(s) from Imaging Studies Chest X-Ray 03/12/17 14:31 IMPRESSION: Progressive right upper lobe and right perihilar infiltration and left lower lobe infiltrate. Follow-up is recommended. Electronically Signed: Braydon Serra MD at 15:17 EST Tel [phone], Service support , Elbow X-Ray 03/12/17 14:42 IMPRESSION: Irregularity of the olecranon of the proximal ulna with soft tissue calcifications and irregularity of the cortex. This may represent a chronic osteomyelitis. Overlying soft tissue swelling. Clinical correlation is recommended. There is no evidence of joint effusion. No fracture is seen. Electronically Signed: Braydon Serra MD at 15:16 EST Tel [phone], Service support , Brain CT 03/12/17 16:13 IMPRESSION: Comminuted nasal bone and nasal septal fractures associated with opacification of the nasal cavities and nasal soft tissue swelling. Small air-fluid levels within the maxillary and sphenoid sinuses may be secondary to history of sinusitis however this may be related to recent trauma, consider dedicated maxillofacial CT for further evaluation. Bilateral periorbital hematomas. Electronically Signed: Kayla Rodriguez MD at 17:22 EST Tel , Service support , Facial/Sinus 03/12/17 19:04 IMPRESSION: Diffuse soft tissue swelling overlying the nose. Impacted nasal bone fracture. Fracture of the nasal septum. Electronically Signed: Blaze Rodriguez MD at 20:33 EST , Service support , Chest X-Ray 03/15/17 06:43 IMPRESSION: Increasing bilateral pulmonary infiltrates Electronically Signed: Esdras Crowe MD, FACR at 7:34 EST , Service support , Chest X-Ray 03/17/17 09:24 IMPRESSION: Since prior study, there is a progression of the bilateral airspace disease worse in the right hemithorax. Electronically Signed: Braydon Serra MD at 10:40 EST Tel [phone], Service support , Brain CT 03/17/17 14:53 IMPRESSION: Known comminuted nasal fracture. Air-fluid level in the right sphenoid sinus with opacification of the right ethmoid sinus and thickening of the right maxillary sinus. Electronically Signed: Braydon Serra MD at 15:35 EST Tel [phone], Service support , Dr. Strickland, ENT. Dr. March, pulmonology/critical care. Operations: None Procedures: None Summary of Care Provided: This is a 66 years old male patient admitted because of fall complicated by a closed head injury, impacted nasal bone fracture/fracture of the nasal septum, bilateral periorbital hematomas, suspected aspiration pneumonia, acute blood loss anemia as well as acute kidney injury., He was found to have coagulopathy with highly elevated INR, PT and PTT with unclear etiology. #1 fall/closed head injury/bilateral periorbital hematomas: Treated conservatively with pain control and close monitoring. Done on admission and CT scan brain as follow-up and revealed stable fractures, no acute intracranial hemorrhage, no acute infarction. Patient had protracted long hospital course. After discussion with the legal guardian, decision was made to consult hospice and palliative care team who evaluated the patient and decided that patient is not a candidate for hospice and medical facility and they agreed to see the patient at the [facility]. So he is status #2 impacted nasal bone fracture/fracture of the nasal septum/epistaxis: Treated with nasal packing and local vasoconstrictors By ENT. The nasal packing remained in place for a few days, status post removal one day before discharge and patient had no more active epistaxis. #3 coagulopathy: Without clear etiology. His INR was 11.8. This was treated with fresh frozen plasma and vitamin K and his INR came down to 1.3. Fibrinogen was normal. There was no evidence of DIC. There was no reported patient has been on any anticoagulants and it is not clear why this patient has elevated INR. His LFT is normal. #4 suspected aspiration pneumonia: With possible aspiration of the blood. Initially, treated with IV Zosyn and later, he was started on IV Unasyn. Pneumococcal antigen is negative. Blood cultures showed no growth in 5 days. Patient discharged on clindamycin to cover for both aspiration pneumonia as well as MRSA subcutaneous skin abscess around the right elbow. #5 acute hypoxic respiratory failure: Secondary to aspiration pneumonia, aspiration of the blood as well as nasal blockage by the nasal packing. It was treated with oxygen by nonrebreather mask and oxygen by nasal cannula. Patient is DNR CC and no intubation done. We could not put the BiPAP on because of the nasal fractures. With above-mentioned treatment, patient was able to be weaned down to oxygen by nasal cannula at 6 L. #5 acute on chronic blood loss anemia: Secondary to epistaxis. he received a total of 4 units of packed RBCs. Discharge hemoglobin was 8.7 g/dL. he does have chronic anemia with baseline hemoglobin around 9-11 g/dL. #6 subcutaneous small abscess around the right elbow: Treated with IV clindamycin. Wound culture from the abscess revealed MRSA. Blood culture were negative. Discharged on clindamycin #7 acute kidney injury: Probably prerenal because of dehydration. Treated with IV fluids, admission creatinine was 1.88, discharge creatinine is 1.18, it is back to normal. #8 thrombocytopenia: Chronic, unclear etiology. Discharge platelet count is 202 ,000, back to normal. Patient discharged to [facility] in a guarded condition, discharged on 6 L of oxygen, discharged on clindamycin for aspiration pneumonia and MRSA subcutaneous skin infection around the right elbow, he was seen and evaluated by hospice and palliative care who will follow up with him at [facility], recommended follow-up with PCP in 1 week. This note was generated with [employer] dictation software. It may contain incorrect words, spelling, and punctuation that were not noted in checking the note before signing. Home Medications: Medications to take at Discharge Ergocalciferol [Vitamin D] 50,000 unit PO MOTH 12/22/12 Levothyroxine Sodium [Synthroid] 200 mcg PO DAILY 12/22/12 Magnesium Oxide [Mag-Ox 400] 400 mg PO DAILY 12/22/12 Multivitamins,Therapeutic [Multivitamin] 1 tablet PO DAILY 12/22/12 Senna/Docusate Sodium [Senokot-S] 1 tablet PO QHS 12/22/12 Albuterol Aerosols [Ventolin Aerosols] 2.5 mg INHALATION Q4H PRN PRN 02/19/17 Aripiprazole 10 mg PO BID 02/19/17 Chlorpromazine HCl 25 mg PO BID 02/19/17 Divalproex Sodium [Depakote Sprinkle] 125 mg PO BID 02/19/17 Metoprolol Succinate 50 mg PO DAILY 02/19/17 Olanzapine 5 mg PO Q6H PRN PRN 02/19/17 Quetiapine Fumarate [Seroquel] 200 mg PO TID 02/19/17 Benztropine Mesylate 0.5 mg PO DAILY 03/12/17 Benztropine Mesylate 1 mg PO DAILY 03/12/17 Guaifenesin 400 mg PO Q6H PRN PRN 03/12/17 Loperamide [Imodium] 2 mg PO TID PRN 03/12/17 Clindamycin [Cleocin] 450 mg PO TID 5 Days cap 03/20/17 Clonazepam [Klonopin] 2 mg PO 4X/DAY #10 tab 03/20/17 Ipratropium/Albuterol Sulfate [Duoneb] 3 ml INHALATION Q6H #1 ampul.neb Lorazepam [Ativan] 2 mg PO Q4H PRN #7 tab 03/20/17 Following Prescrptions Were Given to Patient: Lorazepam [Ativan] 2 mg PO Q4H PRN #7 tab PRN Reason: Agitation Ipratropium/Albuterol Sulfate [Duoneb] 3 ml INHALATION Q6H #1 ampul.neb Clindamycin [Cleocin] 450 mg PO TID 5 Days cap Clonazepam [Klonopin] 2 mg PO 4X/DAY #10 tab Primary Care Physician: Vel Aranda [Primary Care Provider] - Please follow up with your Primary Care Physician in: 1 week. Disposition: [facility] facility - With hospice Minutes spent on discharge:: 36 Patient Condition:: Guarded Meaningful Use Info Meaningful Use Diagnoses (Choose all that apply): None applicable Code Visit Inpatient E&M: 18362 Disch Hosp
[2017-03-22 11:07] LABS: Pathologist Review Reviewed
[2017-03-23 09:56] LABS: Pathologist Review Reviewed
== END 2017-03-20 13:52 | disposition skilled nursing facility (03) | DRG 154 ==
LOC: ED 17:53 → MS3 19:28 → PCU 20:04
PROVIDERS: Internal Medicine; Internal Medicine Critical Care Medicine; Admitting Provider Internal Medicine; Emergency Provider Emergency Medicine; Family Provider Family Medicine; PCP Family Medicine; Visit Provider Hospitalist
DX: S02.2XXA Fracture of nasal bones, initial encounter for closed fracture (principal); J69.0 Pneumonitis due to inhalation of food and vomit; J96.01 Acute respiratory failure with hypoxia; N17.9 Acute kidney failure, unspecified; D68.9 Coagulation defect, unspecified; D62 Acute posthemorrhagic anemia; E86.0 Dehydration; L02.413 Cutaneous abscess of right upper limb; F20.0 Paranoid schizophrenia; W19.XXXA Unspecified fall, initial encounter; S09.90XA Unspecified injury of head, initial encounter; D69.6 Thrombocytopenia, unspecified; E21.3 Hyperparathyroidism, unspecified; S01.21XA Laceration without foreign body of nose, initial encounter; Y92.129 Unspecified place in nursing home as the place of occurrence of the external cause; Z66 Do not resuscitate; R04.0 Epistaxis; B95.62 Methicillin resistant Staphylococcus aureus infection as the cause of diseases classified elsewhere; I10 Essential (primary) hypertension; J44.9 Chronic obstructive pulmonary disease, unspecified; S05.12XA Contusion of eyeball and orbital tissues, left eye, initial encounter; S05.11XA Contusion of eyeball and orbital tissues, right eye, initial encounter; Z79.899 Other long term (current) drug therapy; E03.9 Hypothyroidism, unspecified; Z78.1 Physical restraint status; F17.200 Nicotine dependence, unspecified, uncomplicated
CPT/HCPCS: 36415; 36600; 70450; 70486; 71045; 73080; 80048; 80076; 81002; 82803; 83735; 84100; 85025; 85027; 85384; 85610; 85730; 86850; 86900; 86920; 86922; 87040; 87070; 87077; 87186; 87205; 87449; 92507; 92526; 94640; 94762; 99285; J7030; J7040; J7050; P9016; P9017; A4216; J0295; J1940